=== PATIENT | male | born 1990 | race Two or more races ===

== ENCOUNTER 2016-11-12 20:24 | Emergency (ER) | payer OTHER ==
[2016-11-12 20:34] VITALS: BP 124/79; PULSE 95; TEMP 98.5; BMI 19.9
[2016-11-12] MEDS ORDERED: DIPHTH,PERTUSS(ACELL),TET 0.5 ML DISP.SYRIN IM ONE (22:18)
--- NOTE | 2016-11-12 22:27 | PDOC ---
History of Present Illness - General Chief Complaint: Injury Stated Complaint: LACERATION Time Seen by Provider: 11/12/16 21:21 History Source: Patient Exam Limitations: No Limitations - History of Present Illness Initial Comments: 11/12/16 22:50 Chief complaint: Laceration with of right fifth finger History of present illness: Patient is a 26-year-old male with no significant medical history here today with a laceration to the web of his right fifth finger area after cutting it on frame of his bed. Patient denies any numbness of his finger. Patient has full range of motion of his finger. Patient is not up -to-date with his tetanus. 11/12/16 22:55 Occurred: reports: just prior to arrival Severity: reports: mild Method of Injury: Yes: other (cut on his bed ) Modifying Factors: improves with: None Loss of Consciousness: no loss of consciousness Associated Symptoms (Fall): denies symptoms Past History - Past Medical History Allergies/Adverse Reactions: Allergies Allergy/AdvReac Type Severity Reaction Status Date / Time No Known Allergies Allergy Verified 03/10/14 14:54 Home Medications: Ambulatory Orders Unobtainable [Unobtainable] 11/12/16 Other medical history: depression - Suicide/Smoking/Psychosocial Hx Smoking Status: Yes Smoking History: Current every day smoker Number of Cigarettes Smoked Daily: 20 Information on smoking cessation initiated: No 'Breaking Loose' booklet given: 03/10/14 Hx Alcohol Use: No Review of Systems - Review of Systems Constitutional: No: Symptoms Reported HEENTM: No: Symptoms Reported Respiratory: No: Symptoms reported Cardiac (ROS): No: Symptoms Reported ABD/GI: No: Symptoms Reported : No: Symptoms Reported Musculoskeletal: Yes: Other. No: Symptoms Reported Integumentary: Yes: Other (laceration between rt 4th and 5th finger web) Neurological: No: Symptoms reported *Physical Exam - Vital Signs Last Vital Signs Temp Pulse Resp BP Pulse Ox 98.5 F 95 H 19 124/79 100 11/12/16 20:31 11/12/16 20:31 11/12/16 20:31 11/12/16 20:31 11/12/16 20:31 - Physical Exam General Appearance: Yes: Appropriately Dressed Comments:: 11/12/16 22:53 radial pulse 4 + rt. Extremity: positive: Normal Capillary Refill, Normal Range of Motion (rt. hand all digits) Integumentary: positive: Other (linear laceration web of 5th and 4 th finger linear approx 3 cm x 0.25 cm ) Neurologic: positive: Normal Response (rt. hand ), Respond to painful stimul, Responsive. negative: Numbness, Sensory Deficit Procedures - Consent Consent obtained: From Patient - Laceration/Wound Repair Right Hand 5th digit Wound Length: 2.6 to 5.0 cm Wound Explored: clean Wound's Depth, Shape: superficial, linear Irrigated w/ Saline: Yes Betadine Prep: Yes Anesthesia: 1% Lidocaine Amount of Anesthetic (ccs): 5 Wound Repaired With: Sutures Suture Size/Type: 5:0 Number of Sutures: 5 (interrupted) Sterile Dressing Applied: Yes Medical Decision Making - Medical Decision Making 11/12/16 22:50 Patient is a 26-year-old male with no significant medical history here today with a laceration to the web of his right fifth finger area after cutting it on frame of his bed. Patient denies any numbness of his finger. Patient has full range of motion of his finger. Patient is not up-to-date with his tetanus. Right hand laceration of web on fifth finger Plan: TDAP 0.5 ml IM now 5 interrupted sutures applied to laceration on right fifth finger web follow up in 10 days for suture removal *DC/Admit/Observation/Transfer Diagnosis at time of Disposition: Laceration of right hand Qualifiers: Encounter type: initial encounter Foreign body presence: without foreign body Qualified Code(s): S61.411A - Laceration without foreign body of right hand, initial encounter - Discharge Dispostion Disposition: HOME Condition at time of disposition: Stable - Patient Instructions Additional Instructions: Keep hand dry today Starting tomorrow twice daily with antibacterial soap and water pat dry and apply a tiny amount of bacitracin ointment and a bandage to area May take bandage off at night. Area dry out when sleeping Return here in 10 days for suture removal or sooner if any redness around wound or discharge from wound or any other complications Today your tetanus, diphtheria and pertussis vaccine was updated Patient Voiced understanding of discharge instructions and all questions were answered
== END 2016-11-12 23:00 | disposition home or self-care (01) ==
LOC: JERFT 20:24
PROC: 0HQFXZZ Repair Right Hand Skin, External Approach (ICD-10-PCS; principal; 2016-11-12)
PROC: 3E0234Z Introduction of Serum, Toxoid and Vaccine into Muscle, Percutaneous Approach (ICD-10-PCS; 2016-11-12)
DX: S61.411A Laceration without foreign body of right hand, initial encounter (principal); W26.8XXA Contact with other sharp object(s), not elsewhere classified, initial encounter; Y93.89 Activity, other specified; Y92.032 Bedroom in apartment as the place of occurrence of the external cause
CPT/HCPCS: 90715; 99281-25

== ENCOUNTER 2017-01-21 02:05 | Inpatient (IN) | payer OTHER ==
[2017-01-21] MEDS ORDERED: SODIUM CHLORIDE 0.9% 1000 ML INFUS.BAG IV ONE (03:10)
--- NOTE | 2017-01-21 03:16 | PDOC ---
History of Present Illness - General Stated Complaint: INTOX Time Seen by Provider: 01/21/17 02:55 - History of Present Illness Initial Comments: 01/21/17 03:07 "I took a lot of pills" Patient is a 26 y.o. male who presents to the ED following ingestion of a self- reported 60 pills. Patient presents with empty prescription bottles for Escitaprolam, Bactrim, Buproprion and Hydroxyzine. Patient states "I don't know why" he took a lot of pills and also notes that he did cocaine prior to presentation. Patient denies any current homicidal ideations and is A&O x4. Patient reticent during exam and has flat affect. NKDA Surgical: denies Social: nicotine: 1 ppd; denies alcohol; (+) cocaine PMD: Dr. Vianca Mckeon Past History - Past Medical History Allergies/Adverse Reactions: Allergies Allergy/AdvReac Type Severity Reaction Status Date / Time No Known Allergies Allergy Verified 12/19/16 19:36 Home Medications: Ambulatory Orders Bupropion Xl 300 mg PO DAILY 12/20/16 Escitalopram Oxalate 10 mg PO DAILY 12/20/16 COPD: No - Suicide/Smoking/Psychosocial Hx Smoking Status: Yes Smoking History: Current every day smoker Number of Cigarettes Smoked Daily: 20 'Breaking Loose' booklet given: 03/10/14 Hx Alcohol Use: No Drug/Substance Use Hx: Yes Substance Use Type: Cocaine, Heroin Hx Substance Use Treatment: No Review of Systems - Review of Systems Constitutional: No: Chills, Fever Respiratory: No: Shortness of Breath Cardiac (ROS): No: Chest Pain ABD/GI: No: Constipated, Diarrhea, Nausea, Vomiting All Other Systems: Reviewed and Negative *Physical Exam - Physical Exam General Appearance: Yes: Nourished, Thin HEENT: positive: SYDNEE Neck: positive: Trachea midline, Supple Respiratory/Chest: positive: Lungs Clear. negative: Respiratory Distress, Accessory Muscle Use Cardiovascular: positive: S1, S2 Gastrointestinal/Abdominal: positive: Normal Bowel Sounds, Soft Musculoskeletal: negative: CVA Tenderness (R), CVA Tenderness (L) Extremity: positive: Normal Capillary Refill, Normal Inspection Integumentary: positive: Normal Color, Dry, Warm Neurologic: positive: account coordinator II-XII NML intact, Fully Oriented, Alert, Depressed Affect. negative: Confused, Disoriented ED Treatment Course - LABORATORY CBC & Chemistry Diagram: 01/21/17 03:24 01/21/17 03:24 Medical Decision Making - Medical Decision Making 01/21/17 03:08 Patient is a 26 y.o. male who presents following self-induced overdose of a number of medications including Escitaprolam and Buproprion as well as taking cocaine earlier in the evening.. Clinical suspicion for cardiotoxicity/ respiratory depression. PLAN: 1. CBC, CMP 2. 1 L IV NS 3. UA/Urine Tox 4. 1:1 sitter 01/21/17 05:58 EKG shows NSR HR 91, with no deviations, normal intervals, no ST segment elevations/depressions and normal R wave progression V1-V6. Patient sleeping comfortably in ED. Non-tachycardic, SpO2 99% on RA. Will continue to monitor closely with signout to morning team for psychiatry consult. 01/21/17 07:03 Patient signed out to Dr. Ivy (Attending) and Dr. Ram (Resident). *DC/Admit/Observation/Transfer Diagnosis at time of Disposition: Suicidal deliberate poisoning - Referrals Referrals: Vianca Duron MD [Primary Care Provider] - - Patient Instructions - Post Discharge Activity
[2017-01-21 03:35] LABS: BASO % 0.7 % (0-2.0); EOS % 1.7 % (0-4.5); MCH 28.7 pg (25.7-33.7); MCHC 33.9 g/dl (32.0-35.9); MEAN CELL VOLUME 84.5 fl (80-96); NEUT % 71.5 % (42.8-82.8); PLATELET COUNT 185 K/MM3 (134-434); WHITE BLOOD COUNT 10.5 K/mm3 (4.0-10.0)
[2017-01-21 03:58] LABS: ALCOHOL < 5.0 mg/dl (0-5)
[2017-01-21 04:01] LABS: ANION GAP 14 (8-16); BILIRUBIN,TOTAL 0.5 mg/dL (0.2-1.0); CALCIUM 9.6 mg/dL (8.5-10.1); CO2 21 mmol/L (21-32); CREATININE 1.3 mg/dL (0.7-1.3); GLUCOSE,RANDOM 103 mg/dL (74-106); SGOT/AST 11 U/L (15-37); SGPT/ALT 19 U/L (12-78); TOT PROT 8.2 g/dl (6.4-8.2)
[2017-01-21 04:02] LABS: ALK PHOS 100 U/L (45-117)
[2017-01-21 04:03] LABS: SALICYLATE < 4.0 mg/dl (0.0-30.0)
--- NOTE | 2017-01-21 04:03 | PDOC ---
Attending Attestation - HPI HPI: 01/21/17 04:08 26 year old male with no significant past medical history, who presents to the emergency room s/p suicide attempt after ingesting over 60 pills this evening prior to arrival to the ED. He reports taking Bactrim, escitalopram, bupropion, and hydroxyzine. <Shea Barber - Last Filed: 01/21/17 04:08> - Resident Resident Name: TruptiLita - ED Attending Attestation I have performed the following: I have examined & evaluated the patient, The case was reviewed & discussed with the resident, I agree w/resident's findings & plan, Exceptions are as noted - Physicial Exam PE: 01/21/17 19:49 *Physical Exam General Appearance: Yes: Appropriately Dressed. No: Apparent Distress, Intoxicated HEENT: positive: EOMI, SYDNEE, Normal ENT Inspection, Normal Voice, TMs Normal, Pharynx Normal. negative: Pale Conjunctivae, Photophobia, Scleral Icterus (R), Scleral Icterus (L) Neck: positive: Trachea midline, Normal Thyroid, Supple. negative: Tender, Rigid, Carotid bruit, Stridor, Lymphadenopathy (R), Lymphadenopathy (L), Thyromegaly Respiratory/Chest: positive: Lungs Clear, Normal Breath Sounds. negative: Chest Tender, Respiratory Distress, Accessory Muscle Use, Labored Respiration, RES, Crackles, Rales, Rhonchi, Stridor, Wheezing, Dullness Cardiovascular: positive: Regular Rhythm, Regular Rate, S1, S2. negative: Edema , JVD, Murmur, Bradycardia, Tachycardia Vascular Pulses: Dorsalis-Pedis (R): 2+, Doralis-Pedis (L): 2+ Gastrointestinal/Abdominal: positive: Normal Bowel Sounds, Flat, Soft. negative : Tender, Organomegaly, Pulsatile Mass, Increased Bowel Sounds, Decreased BS, Distended, Guarding, Rebound, Hernia, Hepatomegaly, Spleenomegaly Lymphatic: negative: Adenopathy, Tenderness Musculoskeletal: positive: Normal Inspection. negative: CVA Tenderness, Decreased Range of Motion Extremity: positive: Normal Capillary Refill, Normal Inspection, Normal Range of Motion, Pelvis Stable. negative: Tender, Pedal Edema, Swelling, Erythema Integumentary: positive: Normal Color, Dry, Warm. negative: Cyanotic, Erythema , Jaundice, Rash Neurologic: positive: yoke presser II-XII NML intact, Fully Oriented, Alert, Normal Mood/ Affect, Motor Strength 5/5. negative: EOM Palsy, Facial Droop, Sensory Deficit - Medical Decision Making 01/21/17 19:51 Pt admitted to ICU. <Lenin Merida - Last Filed: 01/21/17 19:51>
[2017-01-21 05:06] VITALS: BMI 23.0
--- NOTE | 2017-01-21 07:32 | PDOC ---
*Physical Exam - Vital Signs Last Vital Signs Temp Pulse Resp BP Pulse Ox 98.6 F 103 H 18 126/83 97 01/21/17 02:05 01/21/17 07:09 01/21/17 07:09 01/21/17 07:09 01/21/17 07:09 ED Treatment Course - LABORATORY CBC & Chemistry Diagram: 01/21/17 03:24 01/21/17 08:00 - ADDITIONAL ORDERS Additional order review: Laboratory Results 01/21/17 01/21/17 03:24 03:24 Sodium 137 Potassium 3.5 Chloride 102 Carbon Dioxide 21 Anion Gap 14 BUN 18 D Creatinine 1.3 D Creat Clearance w eGFR > 60 Random Glucose 103 D Calcium 9.6 Total Bilirubin 0.5 AST 11 L D ALT 19 Alkaline Phosphatase 100 Total Protein 8.2 D Albumin 5.0 D Salicylates < 4.0 Acetaminophen < 11 Alcohol, Quantitative < 5.0 01/21/17 03:24 RBC 6.20 H MCV 84.5 MCHC 33.9 RDW 13.0 MPV 10.0 Neutrophils % 71.5 Lymphocytes % 17.6 Monocytes % 8.5 Eosinophils % 1.7 Basophils % 0.7 - Medications Given in the ED: ED Medications Discontinued Medications Generic Name Dose Route Start Last Admin Trade Name Freq PRN Reason Stop Dose Admin Sodium Chloride 1,000 ml 01/21/17 03:10 01/21/17 03:34 Normal Saline - IV 01/21/17 03:11 1,000 ml ONCE ONE Administration Medical Decision Making - Medical Decision Making 01/21/17 07:[address] Lyles - patient reports using cocaine and taking "60 " pills, with bottles for Escitaloprolam, Bactrim, Buproprion and Hydroxyzine 01/21/17 07:53 Patient had short self limited seizure at approximately 7:45am. No intervention necessary before it quickly seized. QRS elongation and Rprime noted in aVR noted on repeat EKG. Consulted poison control who recommended serial EKGs, fluids, repeat electrolytes, and Mg levels. Also admit for 24 hour obs on tele. Will comply with recommendations. 01/21/17 08:08 Patient catheterized as unable to urinate. Straight cath yielded 1000mL urine. Sodium Bicarb administered for QRS prolongation 01/21/17 08:[address] James. Will admit patient to tele. Dr. James would also like cardiology and neurology consulted as well as psych. Will comply. 01/21/17 09:35 01/21/17 09:56 Toxicology called to check on patient - agreed with Sodium Bicarb admin already given in ED. Recommended continued repeat EKG's, described case reports of instances with Escitalopram overdose deaths at 32 hours. If EKG normalized at 24 hours toxicology is ok with d/c. Will be calling again tomorrow for re- evaluation. *DC/Admit/Observation/Transfer Diagnosis at time of Disposition: Seizure Suicidal deliberate poisoning Qualifiers: Encounter type: initial encounter Qualified Code(s): T65.92XA - Toxic effect of unspecified substance, intentional self-harm, initial encounter Overdose Qualifiers: Encounter type: initial encounter Injury intent: undetermined intent Qualified Code(s): T50.904A - Poisoning by unspecified drugs, medicaments and biological substances, undetermined, initial encounter - Discharge Dispostion Admit: Yes - Referrals - Patient Instructions - Post Discharge Activity
[2017-01-21] MEDS ORDERED: SODIUM BICARBONATE 8.4% - 50 ML ONE (07:40)
[2017-01-21] MEDS ORDERED: SODIUM CHLORIDE 1,000 ML IV STA ×2 (07:42→18:08)
[2017-01-21] MEDS ORDERED: SODIUM BICARBONATE IV SCH ×2 (07:45→08:30)
[2017-01-21] MEDS ORDERED: WATER IV SCH ×2 (07:45→08:30)
[2017-01-21] MEDS ORDERED: DEXTROSE IV SCH ×2 (07:45→08:30)
[2017-01-21] MEDS ORDERED: MAGNESIUM SULF 50% (8.12 MEQ/2 ML-1 GM VIAL) IVPB ONE ×2 (08:00→16:15)
[2017-01-21] MEDS ORDERED: MAGNESIUM SULF 50% (8.12 MEQ/2 ML-1 GM VIAL) ONE ×3 (08:04→19:49)
--- NOTE | 2017-01-21 08:07 | PDOC ---
*Physical Exam - Vital Signs Last Vital Signs Temp Pulse Resp BP Pulse Ox 98.6 F 103 H 18 126/83 97 01/21/17 02:05 01/21/17 07:09 01/21/17 07:09 01/21/17 07:09 01/21/17 07:09 <Sirena Schofield - Last Filed: 01/21/17 09:09> - Vital Signs Last Vital Signs Temp Pulse Resp BP Pulse Ox 98.6 F 103 H 18 126/83 97 01/21/17 02:05 01/21/17 07:09 01/21/17 07:09 01/21/17 07:09 01/21/17 07:09 <CataBrad - Last Filed: 01/21/17 09:15> ED Treatment Course - LABORATORY CBC & Chemistry Diagram: 01/21/17 03:24 01/21/17 03:24 - ADDITIONAL ORDERS Additional order review: Laboratory Results 01/21/17 01/21/17 03:24 03:24 Sodium 137 Potassium 3.5 Chloride 102 Carbon Dioxide 21 Anion Gap 14 BUN 18 D Creatinine 1.3 D Creat Clearance w eGFR > 60 Random Glucose 103 D Calcium 9.6 Total Bilirubin 0.5 AST 11 L D ALT 19 Alkaline Phosphatase 100 Total Protein 8.2 D Albumin 5.0 D Salicylates < 4.0 Acetaminophen < 11 Alcohol, Quantitative < 5.0 01/21/17 03:24 RBC 6.20 H MCV 84.5 MCHC 33.9 RDW 13.0 MPV 10.0 Neutrophils % 71.5 Lymphocytes % 17.6 Monocytes % 8.5 Eosinophils % 1.7 Basophils % 0.7 - Medications Given in the ED: ED Medications Discontinued Medications Generic Name Dose Route Start Last Admin Trade Name Matiasq PRN Reason Stop Dose Admin Magnesium Sulfate 2 gm 01/21/17 08:00 01/21/17 08:05 Magnesium Sulfate IVPB 01/21/17 08:01 2 gm ONCE ONE Administration Sodium Chloride 1,000 ml 01/21/17 03:10 01/21/17 03:34 Normal Saline - IV 01/21/17 03:11 1,000 ml ONCE ONE Administration <Sirena Schofield - Last Filed: 01/21/17 09:09> - LABORATORY CBC & Chemistry Diagram: 01/21/17 03:24 01/21/17 03:24 - ADDITIONAL ORDERS Additional order review: Laboratory Results 01/21/17 01/21/17 03:24 03:24 Sodium 137 Potassium 3.5 Chloride 102 Carbon Dioxide 21 Anion Gap 14 BUN 18 D Creatinine 1.3 D Creat Clearance w eGFR > 60 Random Glucose 103 D Calcium 9.6 Total Bilirubin 0.5 AST 11 L D ALT 19 Alkaline Phosphatase 100 Total Protein 8.2 D Albumin 5.0 D Salicylates < 4.0 Acetaminophen < 11 Alcohol, Quantitative < 5.0 01/21/17 03:24 RBC 6.20 H MCV 84.5 MCHC 33.9 RDW 13.0 MPV 10.0 Neutrophils % 71.5 Lymphocytes % 17.6 Monocytes % 8.5 Eosinophils % 1.7 Basophils % 0.7 - Medications Given in the ED: ED Medications Discontinued Medications Generic Name Dose Route Start Last Admin Trade Name Freq PRN Reason Stop Dose Admin Sodium Chloride 1,000 ml 01/21/17 03:10 01/21/17 03:34 Normal Saline - IV 01/21/17 03:11 1,000 ml ONCE ONE Administration <Brad Ivy - Last Filed: 01/21/17 09:15> Medical Decision Making - Medical Decision Making 01/21/17 08:29 Dr. James paged. Awaiting call back. 01/21/17 08:32 Dr. James called. Awaiting call back. 01/21/17 08:38 Dr. James responded to the call and the patients case was discussed. Will admit to tele. 01/21/17 09:09 Chivo paged via phone answering service. Awaiting call back. Documentation prepared by Sirena Schofield, acting as adjunct faculty for medical terminology for Brad Ivy MD <Sirena Schofield - Last Filed: 01/21/17 09:09> - Medical Decision Making 01/21/17 07:[address] blake at 7am. Pt is 26 M who presents with overdose of 60 pills of Escitaprolam, Bactrim, Buproprion and Hydroxyzine. Unclear time of ingestion. Labs thus far unremarkable. Pt awake and alert at time of sign out. At approx 7:45, pt began to seize. Witnessed by myself having GTC. Episode lasted approx 1 minute total. No meds administered at this time. Repeat EKG obtained, revealing QRS of 124 with terminal R wave in aVR. QTc 673. Questionable TCA toxicity. 1 amp sodium bicarb administered for QRS prolongation and started on sodium bicarb infusion. Mag sulfate administered for QTc prolongation. Pt reassessed s/p seizure, post-ictal but alert and responsive. HD stable. Placed on NC. Poison control contacted. Will repeat labs, including CMP, Mg, tylenol, salicylates. Head CT ordered for seizure with unclear h/o traumatic injury. Will admit to tele. <Brad Ivy - Last Filed: 01/21/17 09:15> *DC/Admit/Observation/Transfer <Sirena Schofield - Last Filed: 01/21/17 09:09> - Attestations Physician Attestion: 01/21/17 08:08 I, Dr. Brad Ivy MD, attest that this document has been prepared under my direction and personally reviewed by me in its entirety. I further attest, that it accurately reflects all work, treatment, procedures and medical decision -making performed by me. <Brad Ivy - Last Filed: 01/21/17 09:15> Diagnosis at time of Disposition: Seizure Suicidal deliberate poisoning Qualifiers: Encounter type: initial encounter Qualified Code(s): T65.92XA - Toxic effect of unspecified substance, intentional self-harm, initial encounter Overdose Qualifiers: Encounter type: initial encounter Injury intent: undetermined intent Qualified Code(s): T50.904A - Poisoning by unspecified drugs, medicaments and biological substances, undetermined, initial encounter
[2017-01-21] MEDS ORDERED: SODIUM BICARBONATE 8.4% 50 MEQ/50 ML DISP.SYRIN IVPUSH ONE (08:12)
[2017-01-21 08:40] LABS: ALBUMIN 4.4 g/dl (3.4-5.0); ANION GAP 24 (8-16); CALCIUM 8.3 mg/dL (8.5-10.1); CO2 13 mmol/L (21-32); GLUCOSE,RANDOM 106 mg/dL (74-106); MAGNESIUM 2.5 mg/dL (1.8-2.4)
[2017-01-21 08:44] LABS: ALK PHOS 92 U/L (45-117); BILIRUBIN,TOTAL 0.3 mg/dL (0.2-1.0); CREATININE 1.6 mg/dL (0.7-1.3); SGOT/AST 9 U/L (15-37); SGPT/ALT 20 U/L (12-78); TOT PROT 7.5 g/dl (6.4-8.2)
[2017-01-21 08:49] LABS: URINE APPEARANCE SLCLOUDY; URINE BILIRUBIN NEGATIVE (NEGATIVE); URINE BLOOD NEGATIVE (NEGATIVE); URINE COLOR YELLOW; URINE GLUCOSE (UA) NEGATIVE (NEGATIVE); URINE KETONE NEGATIVE (NEGATIVE); URINE LEUK ESTERASE NEGATIVE (NEGATIVE); URINE NITRITE NEGATIVE (NEGATIVE); URINE UROBILINOGEN NEGATIVE mg/dL (0.2-1.0)
[2017-01-21 08:53] LABS: URINE PROTEIN 1+ (NEGATIVE)
[2017-01-21] MEDS: DEXTROSE 5%-WATER - 1,000 ML with SODIUM BICARBONATE 8.4% - 150 MEQ IV SCH (08:55)
[2017-01-21 09:05] LABS: URINE HYALINE CAST 27 /lpf; URINE MUCUS RARE; URINE RBC 2 /hpf (0-3); URINE WBC 5 /hpf (3-5)
[2017-01-21 09:14] LABS: SALICYLATE < 4.0 mg/dl (0.0-30.0)
[2017-01-21 09:18] LABS: URINE MARIJUANA THC NEGATIVE ng/ml (CUTOFF=50)
[2017-01-21] MEDS ORDERED: PT OWN MED DRAWER 7, Y5N ONE (10:04)
--- NOTE | 2017-01-21 11:33 | EKG ---
Test Reason : Blood Pressure : / mmHG Vent. Rate : 104 BPM Atrial Rate : 104 BPM P-R Int : 146 ms QRS Dur : 124 ms QT Int : 512 ms P-R-T Axes : 063 044 067 degrees QTc Int : 673 ms SINUS TACHYCARDIA POSSIBLE LEFT ATRIAL ENLARGEMENT RIGHT BUNDLE BRANCH BLOCK ABNORMAL ECG WHEN COMPARED WITH ECG OF 21-JAN-2017 03:28, RIGHT BUNDLE BRANCH BLOCK IS NOW PRESENT Confirmed by JEFF HERNANDEZ, GERARDO ([id number]) on 01/21/2017 11:32:48 AM Referred By: Confirmed By:GERARDO AGUILAR MD
--- NOTE | 2017-01-21 11:34 | EKG ---
Test Reason : Blood Pressure : / mmHG Vent. Rate : 091 BPM Atrial Rate : 091 BPM P-R Int : 140 ms QRS Dur : 102 ms QT Int : 390 ms P-R-T Axes : 069 059 062 degrees QTc Int : 479 ms NORMAL SINUS RHYTHM POSSIBLE LEFT ATRIAL ENLARGEMENT LEFT VENTRICULAR HYPERTROPHY T WAVE ABNORMALITY, CONSIDER ANTERIOR ISCHEMIA PROLONGED QT ABNORMAL ECG WHEN COMPARED WITH ECG OF 20-DEC-2016 03:04, T WAVE INVERSION NOW EVIDENT IN ANTERIOR LEADS QT HAS LENGTHENED Confirmed by GERARDO AGUILAR MD ([id number]) on 01/21/2017 11:33:33 AM Referred By: Confirmed By:GERARDO AGUILAR MD
[2017-01-21] MEDS ORDERED: LORazepam 2 MG/ML SDV VIAL ONE ×5 (15:27→22:32)
[2017-01-21 15:53] LABS: ARTERIAL BLD GAS O2 SATURATION 94.3 % (90-98.9); ARTERIAL BLOOD GAS BASE EXCESS -15.7 meq/l (-2-2); ARTERIAL BLOOD GAS HCO3 12.1 meq/L (22-26); ARTERIAL BLOOD GAS PO2 95.6 mmHg (80-100)
[2017-01-21 16:00] LABS: ALLENS TEST POSITIVE
[2017-01-21 16:01] LABS: PT. ON O2? YES
[2017-01-21 16:02] LABS: ARTERIAL BLOOD GAS pH 7.18 (7.35-7.45)
[2017-01-21] MEDS ORDERED: PROPOFOL 200 MG/20 ML VIAL IVPUSH ONE (16:08)
[2017-01-21] MEDS ORDERED: fentaNYL CITRATE/PF 1,000 MCG/20 ML AMPUL IVPUSH ONE (16:09)
--- NOTE | 2017-01-21 16:10 | CON.CARD ---
Cardiology Consult (text) - Consultation Consultation Note: CC: overdose/qtc prolongation 26 y.o. smoker with h/o polysubstance abuse presented to ER after overdose of multiple medications including Escitaprolam, Bactrim, Buproprion and Hydroxyzine , ER course complicated by brief surgery and progressive prolongation of qtc. Patient treated with bicarb, mg and fluids. History obtained from chart/nursing/md. Patient is intubated and sedated and cannot provide history. This afternoon patient became increasingly altered, agitated, tachycardic and then unresponsive and was transferred to ICU/intubated. Acidosis on ABG. Patient was intubated for airway protection. ? possible aspiration, per report. No ventricular ectopy on tele. pmhx/pshx: per hpi Social hx: nicotine: 1 ppd; denies alcohol; (+) cocaine, utox positive for mdma fam hx: no cardiac disease. ros: per phi, as above. unable to obtain further. per chart, prior to presentation review of ros was negative overall. Ambulatory Orders Bupropion Xl 300 mg PO DAILY 12/20/16 Escitalopram Oxalate 10 mg PO DAILY 12/20/16 Current Medications Sodium Bicarbonate 150 meq/ (Dextrose) 1,150 mls @ 250 mls/hr IV Q8H MARIA DOLORES Last Admin: 01/21/17 08:55 Dose: 250 mls/hr Levetiracetam (Keppra Injection -) 1,500 mg IVPB ONCE ONE Stop: 01/21/17 15:55 Lorazepam (Ativan Injection -) 1 mg IVPUSH Q4H PRN PRN Reason: AGITATION Lorazepam (Ativan Injection -) 2 mg IVPUSH ONCE ONE Stop: 01/21/17 15:51 Magnesium Sulfate (Magnesium Sulfate) 2 gm IVPB ONCE ONE Stop: 01/21/17 15:52 Propofol (Diprivan -) 5,000 mcg IVPUSH ONCE ONE Stop: 01/21/17 16:09 Vital Signs - 24 hr 01/21/17 01/21/17 01/21/17 02:05 06:03 07:09 Temperature 98.6 F Pulse Rate 105 H Pulse Rate [ 98 H 103 H Apical] Respiratory 16 17 18 Rate Blood Pressure 119/67 Blood Pressure 108/71 126/83 [Right Arm] O2 Sat by Pulse 98 100 97 Oximetry (%) 01/21/17 01/21/17 01/21/17 07:30 07:35 08:25 Temperature Pulse Rate Pulse Rate [ 106 H 110 H Apical] Respiratory 16 16 Rate Blood Pressure Blood Pressure 95/70 128/78 [Right Arm] O2 Sat by Pulse 99 98 99 Oximetry (%) 01/21/17 01/21/17 01/21/17 09:07 10:08 10:30 Temperature 97.7 F Pulse Rate 123 H Pulse Rate [ 102 H Apical] Respiratory 16 20 20 Rate Blood Pressure 104/62 Blood Pressure 137/80 [Right Arm] O2 Sat by Pulse 98 98 Oximetry (%) 01/21/17 15:58 Temperature 98.9 F Pulse Rate 103 H Pulse Rate [ Apical] Respiratory 18 Rate Blood Pressure 112/68 Blood Pressure [Right Arm] O2 Sat by Pulse Oximetry (%) Intake & Output 01/19/17 01/20/17 01/21/17 01/22/17 07:59 07:59 07:59 07:59 Output Total 1000 Balance -1000 Weight 170 lb nad, calm, intubated, sedated jvd flat, neck supple ctab, mechanical ventilation tachycardic nl s1, s2 no mrg + bs soft nt nd ext without e/c/c no jaundice, diaphoresis no carotid bruits. CBC, BMP 01/21/17 03:24 01/21/17 08:00 Laboratory Tests 01/21/17 01/21/17 01/21/17 03:24 08:00 08:00 Creatinine 1.3 D Magnesium 2.5 H D Total Bilirubin 0.3 D AST 9 L ALT 20 Alkaline Phosphatase 92 Albumin 4.4 MDMA (Ecstasy) Screen Positive Cocaine Screen Positive EKG 1: nsr. lvh. incomplete rbbb. bline prolonged qtc. diffuse st-t wave ab. anterior /anterolateral twi/biphasic t waves. EKG 2: sinus tach, rbbb. prolonged qtc. non-specific st-t wave ab. t waves no longer inverted/biphasic. tele: sinus tach 26 y.o. smoker with h/o polysubstance abuse preseted to ER after overdose of multiple medications including Escitaprolam, Bactrim, Buproprion and Hydroxyzine , ER course complicated by brief surgery and progressive prolongation of qtc. prolonged qt in setting of overdose. - repeat ekg now and tomorrow am - con't tele monitoring. If has ventricular ectopy overnight can give magnesium 2g iv over 2 minutes or can consider magnesium drip. - ongoing mgm't of overdose/toxicity/acidosis per pmd/critical care team. - avoid qtc prolonging drugs. ST-T wave changes, qrs widening - likely in response to metabolic derangements - if does not normalize with correction of metabolic abnormalities can consider echo.
[2017-01-21] MEDS ORDERED: levETIRAcetam 500 MG/5 ML INJECTION VIAL IVPB ONE ×2 (16:15→19:48)
[2017-01-21] MEDS ORDERED: LORazepam 2 MG/ML SDV VIAL IVPUSH ONE ×3 (16:15→22:45)
--- NOTE | 2017-01-21 16:17 | CON.NEURO ---
Consult - History of Present Illness History of Present Illness: 26 year old male presented with drug over dose ( he took escitaprolam, bactrim, buproprion and hydroxyzine) . He was positive for cocaine and ectasy. Patient had multiple seizure since he came . He is going to icu. Initially ct head was normal. He has been given ativan and at this time he is unresponsive to verbal stimuli - Alcohol/Substance Use Hx Alcohol Use: No History of Substance Use: reports: Cocaine, Prescription (opioids) - Smoking History Smoking history: Current every day smoker Have you smoked in the past 12 months: Yes Aproximately how many cigarettes per day: 20 - Social History ADL: Independent Home Medications - Allergies Allergies/Adverse Reactions: Allergies Allergy/AdvReac Type Severity Reaction Status Date / Time No Known Allergies Allergy Verified 12/19/16 19:36 - Home Medications Home Medications: Ambulatory Orders Bupropion Xl 300 mg PO DAILY 12/20/16 Escitalopram Oxalate 10 mg PO DAILY 12/20/16 Physical Exam-Neuro Vital Signs: Vital Signs Temperature 98.9 F 01/21/17 15:58 Pulse Rate 103 H 01/21/17 15:58 Respiratory Rate 18 01/21/17 15:58 Blood Pressure 112/68 01/21/17 15:58 O2 Sat by Pulse Oximetry (%) 98 01/21/17 10:30 Labs: CBC, BMP 01/21/17 03:24 01/21/17 08:00 Imaging - Results Cat Scan: Report Reviewed Assessment/Plan CC four episode of Seizures HPI 26 year old male presented with drug over dose ( he took escitaprolam, bactrim, buproprion and hydroxyzine) . He was positive for cocaine and ectasy. Patient had multiple seizure since he came . He is going to icu. Initially ct head was normal. He has been given ativan and at this time he is unresponsive to verbal stimuli Past Medical History of drug abuse and depression ROS, SH, Medication history reviewed in chart NKDA Home Medications: Bupropion Xl 300 mg PO DAILY 12/20/16 Escitalopram Oxalate 10 mg PO DAILY 12/20/16 Neurological Examination He is sedated and has multiple seizures on floor and hospitalist team at bed side. He was given ativan and now sedated he is being transported to icu and repeat ct head no neck stiffness pupils is reactive, and minimal response to painful stimuli no detail exam is possible ct head is normal Assessment- Status epilepticus secondary to drug induced ( cocaine and Drugs Overdose) Plan-- suggest to load with keprpa 1500 mg iv bid - EEG can be done - if continue to have seizures and than load with Phosphenytoin and consider midazolam drip - overall prognosis is guarded, suspician for meningitis, or stroke is low will continue to follow with primary Thanks for consult Jasen Monte MD
--- NOTE | 2017-01-21 16:22 | HP ---
Admitting History and Physical - Primary Care Physician PCP: Karen James - Admission History of Present Illness: "I took a lot of pills" Patient is a 26 y.o. male who presents to the ED following ingestion of a self- reported 60 pills. Patient presents with empty prescription bottles for Escitaprolam, Bactrim, Buproprion and Hydroxyzine. Patient states "I don't know why" he took a lot of pills and also notes that he did cocaine prior to presentation. N - Past Medical History Psych: Yes: Depression - Smoking History Smoking history: Current every day smoker Have you smoked in the past 12 months: Yes Aproximately how many cigarettes per day: 20 - Alcohol/Substance Use Hx Alcohol Use: No History of Substance Use: reports: Cocaine, Prescription (opioids) - Social History ADL: Independent Home Medications - Allergies Allergies/Adverse Reactions: Allergies Allergy/AdvReac Type Severity Reaction Status Date / Time No Known Allergies Allergy Verified 12/19/16 19:36 - Home Medications Home Medications: Ambulatory Orders Bupropion Xl 300 mg PO DAILY 12/20/16 Escitalopram Oxalate 10 mg PO DAILY 12/20/16 Physical Examination Vital Signs: Vital Signs Temperature 98.9 F 01/21/17 15:58 Pulse Rate 103 H 01/21/17 15:58 Respiratory Rate 18 01/21/17 15:58 Blood Pressure 112/68 01/21/17 15:58 O2 Sat by Pulse Oximetry (%) 98 01/21/17 10:30 Constitutional: Yes: Calm HENT: Yes: Atraumatic Neck: Yes: Supple Cardiovascular: Yes: Regular Rate and Rhythm Respiratory: Yes: Rhonchi Gastrointestinal: Yes: Normal Bowel Sounds Extremities: Yes: WNL Neurological: Yes: Other (intubated and sedated) Labs: CBC, BMP 01/21/17 03:24 01/21/17 08:00 Problem List - Problems (1) Overdose Assessment/Plan: intubated for airway protection on abx Code(s): T50.901A - POISONING BY UNSP DRUG/MEDS/BIOL SUBST, ACCIDENTAL, INIT Qualifiers: Encounter type: initial encounter Injury intent: undetermined intent Qualified Code(s): T50.904A - Poisoning by unspecified drugs, medicaments and biological substances, undetermined, initial encounter (2) Seizure Assessment/Plan: on keppra Code(s): R56.9 - UNSPECIFIED CONVULSIONS (3) Suicidal deliberate poisoning Assessment/Plan: will get psych once stable Code(s): T65.92XA - TOXIC EFFECT OF UNSP SUBSTANCE, INTENTIONAL SELF-HARM, INIT Qualifiers: Encounter type: initial encounter Qualified Code(s): T65.92XA - Toxic effect of unspecified substance, intentional self-harm, initial encounter Assessment/Plan Laboratory Tests 01/21/17 01/21/17 01/21/17 03:24 03:24 03:24 WBC 10.5 H RBC 6.20 H Hgb 17.8 H D Hct 52.4 H MCV 84.5 MCH 28.7 MCHC 33.9 RDW 13.0 Plt Count 185 MPV 10.0 Neutrophils % 71.5 Lymphocytes % 17.6 Monocytes % 8.5 Eosinophils % 1.7 Basophils % 0.7 Puncture Site ABG pH ABG pCO2 at Pt Temp ABG pO2 at Pt Temp ABG HCO3 ABG O2 Sat (Measured) ABG O2 Content ABG Base Excess Jono Test Oxygen Flow Rate Sodium 137 Potassium 3.5 Chloride 102 Carbon Dioxide 21 Anion Gap 14 BUN 18 D Creatinine 1.3 D Creat Clearance w eGFR > 60 Random Glucose 103 D Calcium 9.6 Magnesium Total Bilirubin 0.5 AST 11 L D ALT 19 Alkaline Phosphatase 100 Total Protein 8.2 D Albumin 5.0 D Urine Color Urine Appearance Urine pH Ur Specific [place] Urine Protein Urine Glucose (UA) Urine Ketones Urine Blood Urine Nitrite Urine Bilirubin Urine Urobilinogen Urine WBC (Auto) Urine RBC (Auto) Ur Epithelial Cells Hyaline Casts Urine Mucus Salicylates < 4.0 Opiates Screen Methadone Screen Acetaminophen < 11 Barbiturate Screen Phencyclidine Screen Ur Amphetamines Screen MDMA (Ecstasy) Screen Benzodiazepines Screen Cocaine Screen U Marijuana (THC) Screen Alcohol, Quantitative < 5.0 01/21/17 01/21/17 01/21/17 08:00 08:00 08:00 WBC RBC Hgb Hct MCV MCH MCHC RDW Plt Count MPV Neutrophils % Lymphocytes % Monocytes % Eosinophils % Basophils % Puncture Site ABG pH ABG pCO2 at Pt Temp ABG pO2 at Pt Temp ABG HCO3 ABG O2 Sat (Measured) ABG O2 Content ABG Base Excess Jono Test Oxygen Flow Rate Sodium 141 Potassium 3.6 Chloride 104 Carbon Dioxide 13 L D Anion Gap 24 H BUN 17 Creatinine 1.6 H D Creat Clearance w eGFR 52.93 Random Glucose 106 Calcium 8.3 L Magnesium 2.5 H D Total Bilirubin 0.3 D AST 9 L ALT 20 Alkaline Phosphatase 92 Total Protein 7.5 Albumin 4.4 Urine Color Yellow Urine Appearance Slcloudy Urine pH 6.0 Ur Specific [place] 1.021 Urine Protein 1+ H Urine Glucose (UA) Negative Urine Ketones Negative Urine Blood Negative Urine Nitrite Negative Urine Bilirubin Negative Urine Urobilinogen Negative Urine WBC (Auto) 5 Urine RBC (Auto) 2 Ur Epithelial Cells Rare Hyaline Casts 27 Urine Mucus Rare Salicylates Opiates Screen Negative Methadone Screen Negative Acetaminophen Barbiturate Screen Negative Phencyclidine Screen Negative Ur Amphetamines Screen Negative MDMA (Ecstasy) Screen Positive Benzodiazepines Screen Negative Cocaine Screen Positive U Marijuana (THC) Screen Negative Alcohol, Quantitative 01/21/17 01/21/17 08:00 15:40 WBC RBC Hgb Hct MCV MCH MCHC RDW Plt Count MPV Neutrophils % Lymphocytes % Monocytes % Eosinophils % Basophils % Puncture Site Y ABG pH 7.18 L* ABG pCO2 at Pt Temp 33.8 L ABG pO2 at Pt Temp 95.6 ABG HCO3 12.1 L* ABG O2 Sat (Measured) 94.3 ABG O2 Content 21.6 ABG Base Excess -15.7 L* Jono Test Positive Oxygen Flow Rate Yes Sodium Potassium Chloride Carbon Dioxide Anion Gap BUN Creatinine Creat Clearance w eGFR Random Glucose Calcium Magnesium Total Bilirubin AST ALT Alkaline Phosphatase Total Protein Albumin Urine Color Urine Appearance Urine pH Ur Specific [place] Urine Protein Urine Glucose (UA) Urine Ketones Urine Blood Urine Nitrite Urine Bilirubin Urine Urobilinogen Urine WBC (Auto) Urine RBC (Auto) Ur Epithelial Cells Hyaline Casts Urine Mucus Salicylates < 4.0 Opiates Screen Methadone Screen Acetaminophen < 2.0 L Barbiturate Screen Phencyclidine Screen Ur Amphetamines Screen MDMA (Ecstasy) Screen Benzodiazepines Screen Cocaine Screen U Marijuana (THC) Screen Alcohol, Quantitative Active Medications Generic Name Dose Route Start Last Admin Trade Name Freq PRN Reason Stop Dose Admin Fentanyl Citrate 500 mcg 01/21/17 16:09 Fentanyl 1,000 Mcg/20 Ml Ampul IVPUSH 01/21/17 16:10 ONCE ONE Sodium Bicarbonate 150 meq/ 1,150 mls @ 250 mls/hr 01/21/17 08:30 01/21/17 08 :55 Dextrose IV 250 mls/hr Q8H MARIA DOLORES Administration Lorazepam 1 mg 01/21/17 15:29 Ativan Injection - IVPUSH Q4H PRN AGITATION Propofol 5,000 mcg 01/21/17 16:08 Diprivan - IVPUSH 01/21/17 16:09 ONCE ONE Active Medications Generic Name Dose Route Start Last Admin Trade Name Freq PRN Reason Stop Dose Admin Acetaminophen 1,000 mg 01/21/17 16:43 Ofirmev Injection - IVPB Q6H PRN FEVER OR PAIN Sodium Bicarbonate 150 meq/ 1,150 mls @ 100 mls/hr 01/21/17 16:45 01/21/17 18 :31 Dextrose IVPB 100 mls/hr Q12H MARIA DOLORES Administration Sodium Chloride 1,000 mls @ 100 mls/hr 01/21/17 16:45 Normal Saline - IV ASDIR MARIA DOLORES Piperacillin Sod/Tazobactam 100 mls @ 200 mls/hr 01/21/17 18:00 01/21/17 18: 33 Sod 4.5 gm/ Dextrose IVPB 200 mls/hr Q6H MARIA DOLORES Administration Levetiracetam 1,500 mg 01/21/17 22:00 Keppra Injection - IVPB BID MARIA DOLORES Lorazepam 1 mg 01/21/17 15:29 01/21/17 16:50 Ativan Injection - IVPUSH 1 mg Q4H PRN Administration AGITATION Ondansetron HCl 4 mg 01/21/17 16:29 Zofran Injection IVPB Q4H PRN NAUSEA AND/OR VOMITING called and left msg for pts home father/ lives in the same house
[2017-01-21] MEDS ORDERED: ONDANSETRON 4 MG/2 ML VIAL IVPB PRN (16:29)
--- NOTE | 2017-01-21 16:32 | PROC ---
<Danisha Bryan - Last Filed: 01/21/17 16:31> Intubation - Intubation Reason for Intubation: Airway Protection Intubation Method: orotracheal Blade used: Mac Tube Size (cm): 8.0 Tube position confirmed by: Direct visualization, CO2 detector, Chest x-ray, Breath sounds Breath Sounds after Intubation: equal Post Intubation Xray: Yes <Dmitriy Anthony MD - Last Filed: 01/21/17 16:33> Procedure Note Procedure: I supervised and was present during the entire procedure. Dmitriy Anthony MD
--- NOTE | 2017-01-21 16:32 | RAPID ---
<Sharmila Lacy - Last Filed: 01/21/17 17:40> Physical Examination Findings/Remarks: RR called at around 4PM due to SEIZURES RR team arrived immediately. Patient's chart was reviewed. Mr Farnsworth is a 26yo M with no known PMHx who presented to the ED after self-reportedly ingesting "60 pills". He presented with empty prescription bottles of Escitalopram, Bactrim, Buproprion, and Hydroxyzine. He presented with AAOx2 with a flat affect. EKG showed QTc 674. He was started on a Bicarb drip. Placed on 1:1. Head CT normal. Patient seen and examined. He was actively seizing with multiple attendants holding down his extremities. According to nurse, this was the patient's 4th seizure since coming to the floors. Pt was given 2mg Ativan IVP with resolution of seizure, with no further seizure activity. Patient was not responding to verbal or tactile stimuli at the time, but was intermittently awakening with confusion and moving all his extremities symmetrically. OBJECTIVE: VS: BP 120s/80s; HR 140s; O2 93 on 2L GEN: Not awake, breathing spontaneously, not responsive to verbal to tactile stimuli HEENT: Pupils are dilated but mildly reactive, unable to assess EOm, no neck stiffn ess CV: S1, S2, tachycardic rate, regular rhythm LUNG: Bilateral rhonchi heard ABD: Soft, normoactive BS NEURO: Difficutl to assess. However patient is moving all extremities symmetrically. pupils are reactive. LABS: ABG Results ABG pH 7.18 (7.35-7.45) L* 01/21/17 15:40 ABG pCO2 at Pt Temp 33.8 mmHg (35-45) L 01/21/17 15:40 ABG pO2 at Pt Temp 95.6 mmHg (80-100) 01/21/17 15:40 ABG HCO3 12.1 meq/L (22-26) L* 01/21/17 15:40 ABG O2 Sat (Measured) 94.3 % (90-98.9) 01/21/17 15:40 ABG O2 Content 21.6 % vol (15-22) 01/21/17 15:40 ABG Base Excess -15.7 meq/l (-2-2) L* 01/21/17 15:40 Laboratory Tests 01/21/17 01/21/17 01/21/17 03:24 08:00 08:00 Salicylates < 4.0 Opiates Screen Negative Methadone Screen Negative Acetaminophen < 2.0 L Barbiturate Screen Negative Phencyclidine Screen Negative Ur Amphetamines Screen Negative MDMA (Ecstasy) Screen Positive Benzodiazepines Screen Negative Cocaine Screen Positive U Marijuana (THC) Screen Negative Alcohol, Quantitative < 5.0 Assessment: 26yo M with no prior seizure history, who arrived s/p overdosing on multiple drugs, which likely lowered the patient's seizure threshold leading to these 4 seizures. Utox +Cocaine and MDMA. ABG revealed metabolic acidosis, likely due to a combination of the multiple drug overdoses and likely lactic acidosis from the multiple seizures. Plan: - Ativan 2mg x1 given, give PRN - Neurology Dr. Monte attended and started Keppra load 1,500mg IV - Due to metabolic acidosis and mental status, patient will be transferred to the ICU. He will be intubated for respiratory rate control while on antiepileptics and sedatives. ICU contacted. Dr. Anthony accepted - STAT EKG ordered, follow QTc - CT head ordered to ensure no new intracranial process especially with dilated pupils, r/o herniation, low suspicion for stroke - CMP, Mg, Phos, TSH ordered - Bicarb drip ordered, will continue for now Attempted to contact Dr James. D/w Dr Brunson and ICU team Critical Care Time 1hr Sharmila Lacy MD - PGy1 Internal Medicine <Bryn Brunson - Last Filed: 01/21/17 17:59> Physical Examination Vital Signs: Vital Signs Temperature 98.9 F 01/21/17 15:58 Pulse Rate 112 H 01/21/17 16:41 Respiratory Rate 18 01/21/17 16:41 Blood Pressure 112/68 01/21/17 15:58 O2 Sat by Pulse Oximetry (%) 100 01/21/17 16:41 Labs: CBC, BMP 01/21/17 03:24 Rapid Response - Rapid Response Assessment: I was present through the whole critical care time spent with the patient. I agree with the assessment, findings and management of the patient. Patient was taken down to ICU, care transferred to Dr. Anthony. Patient was intubated, sedated and placed on bicarbonate drip. Follow up including EKG, CT brain, chem-7 passed on to the ICU team. Further plan deferred to Dr. Anthony and Dr. James.
--- NOTE | 2017-01-21 16:33 | PN ---
Teaching Attending Note Name of Resident: Danisha Bryan ATTENDING PHYSICIAN STATEMENT I saw and evaluated the patient. I reviewed the resident's note and discussed the case with the resident. I agree with the resident's findings and plan as documented. SUBJECTIVE: Pt seen and examined in the ICU. Briefly, 26yo male with h/o substance abuse who was admitted after ingesting multiple doses of escitalopram, bactrim, buproprion, hydroxyzine. Urine toxicology positive for cocaine and ecstasy. ABG showing metabolic acidosis and EKG with prolonged QTc. Admitted to telemetry initially, rapid response called for ongoing seizures. Transferred to the ICU, intubated with vomitus in endotracheal tube. OBJECTIVE: Last Vital Signs Temp Pulse Resp BP Pulse Ox 98.9 F 103 H 18 112/68 98 01/21/17 15:58 01/21/17 15:58 01/21/17 15:58 01/21/17 15:58 01/21/17 10:30 Intake & Output 01/18/17 01/19/17 01/20/17 01/21/17 23:59 23:59 23:59 23:59 Output Total 1000 Balance -1000 Weight 170 lb Gen: agitated, diaphoretic Heart: tachycardic, regular Lung: scattered rhonchi Abd: soft, nontender Ext: no edema CBC, BMP 01/21/17 03:24 01/21/17 08:00 ABG Results ABG pH 7.18 (7.35-7.45) L* 01/21/17 15:40 ABG pCO2 at Pt Temp 33.8 mmHg (35-45) L 01/21/17 15:40 ABG pO2 at Pt Temp 95.6 mmHg (80-100) 01/21/17 15:40 ABG HCO3 12.1 meq/L (22-26) L* 01/21/17 15:40 ABG O2 Sat (Measured) 94.3 % (90-98.9) 01/21/17 15:40 ABG O2 Content 21.6 % vol (15-22) 01/21/17 15:40 ABG Base Excess -15.7 meq/l (-2-2) L* 01/21/17 15:40 Active Medications Fentanyl Citrate (Fentanyl 1,000 Mcg/20 Ml Ampul) 500 mcg IVPUSH ONCE ONE Stop: 01/21/17 16:10 Sodium Bicarbonate 150 meq/ (Dextrose) 1,150 mls @ 250 mls/hr IV Q8H MARIA DOLORES Last Admin: 01/21/17 08:55 Dose: 250 mls/hr Lorazepam (Ativan Injection -) 1 mg IVPUSH Q4H PRN PRN Reason: AGITATION Ondansetron HCl (Zofran Injection) 4 mg IVPB Q4H PRN PRN Reason: NAUSEA AND/OR VOMITING Propofol (Diprivan -) 5,000 mcg IVPUSH ONCE ONE Stop: 01/21/17 16:09 ASSESSMENT AND PLAN: Drug Overdose Suspect Serotonin Syndrome Polysubstance Abuse Metabolic Acidosis Acute Kidney Injury - keppra per neurology - aggressive IVF - bicarb gtt - empiric antibiotics - monitor QTc - monitor ABG - DVT/GI prophylaxis
[2017-01-21] MEDS ORDERED: ACETAMINOPHEN 1000 MG/100 ML VIAL (NON FORMULARY) IVPB PRN (16:43)
[2017-01-21] MEDS ORDERED: PIPERACILLIN/TAZOB 4.5 GM/100 ML PREMIX BAG IVPB SCH (16:45)
--- NOTE | 2017-01-21 16:46 | CONSULT ---
Consultation: REQUESTING PROVIDER: CONSULT REQUEST: We have been asked to medically evaluate this patient for seizure, aspiration. HISTORY OF PRESENT ILLNESS: This is a 26 yo M with PMH of drug abuse, who presented with drug OD on escitaprolam, bactrim, buproprion and hydroxyzine. Tox positive for cocaine and ecstasy. Patient was initially combative on floor, then had multiple episodes of SZ, broken by ativan 1 mg, RR was called. Brought o ICU lethargic, confused, hemodynamically stable. Was intubated for airway protection, at the time was found to have vomit in the trachea. had another episode of grand mal SZ, was given 2 of ativan and started on keppra. Had an episode of hypitension systolic 70 after 15 mg of propofol given for intubation, corrected with a bolus of IVF. has been afebrile. Initial ct head wnl. EKG significant for prolonged QTc 504. REVIEW OF SYSTEMS: unable to obtain PHYSICAL EXAMINATION Vital Signs - 24 hr 01/21/17 01/21/17 01/21/17 02:05 06:03 07:09 Temperature 98.6 F Pulse Rate 105 H Pulse Rate [ 98 H 103 H Apical] Respiratory 16 17 18 Rate Blood Pressure 119/67 Blood Pressure 108/71 126/83 [Right Arm] O2 Sat by Pulse 98 100 97 Oximetry (%) 01/21/17 01/21/17 01/21/17 07:30 07:35 08:25 Temperature Pulse Rate Pulse Rate [ 106 H 110 H Apical] Respiratory 16 16 Rate Blood Pressure Blood Pressure 95/70 128/78 [Right Arm] O2 Sat by Pulse 99 98 99 Oximetry (%) 01/21/17 01/21/17 01/21/17 09:07 10:08 10:30 Temperature 97.7 F Pulse Rate 123 H Pulse Rate [ 102 H Apical] Respiratory 16 20 20 Rate Blood Pressure 104/62 Blood Pressure 137/80 [Right Arm] O2 Sat by Pulse 98 98 Oximetry (%) 01/21/17 01/21/17 15:58 16:41 Temperature 98.9 F Pulse Rate 103 H 112 H Pulse Rate [ Apical] Respiratory 18 18 Rate Blood Pressure 112/68 Blood Pressure [Right Arm] O2 Sat by Pulse 100 Oximetry (%) GENERAL: unresponsive to verbal stimuli HEAD: Normal with no signs of trauma. EYES: dilated, equal, reactive to light, sclera anicteric EARS, NOSE, THROAT: Moist mucous membranes. NECK: supple LUNGS: Breath sounds equal, clear to auscultation bilaterally. HEART: Regular rate and rhythm, normal S1 and S2 ABDOMEN: Soft, nontender, not distended, normoactive bowel sounds, no mass MUSCULOSKELETAL: No bony deformities UPPER EXTREMITIES: 2+ pulses, warm, well-perfused. No peripheral edema. LOWER EXTREMITIES: 2+ pulses, warm, well-perfused. No peripheral edema. NEUROLOGICAL: unresoponside to command, was awake but lethargic until sedated PSYCHIATRIC: lethargic SKIN: Warm, dry Laboratory Results - last 24 hr 01/21/17 01/21/17 01/21/17 03:24 03:24 03:24 WBC 10.5 H RBC 6.20 H Hgb 17.8 H D Hct 52.4 H MCV 84.5 MCH 28.7 MCHC 33.9 RDW 13.0 Plt Count 185 MPV 10.0 Neutrophils % 71.5 Lymphocytes % 17.6 Monocytes % 8.5 Eosinophils % 1.7 Basophils % 0.7 Puncture Site ABG pH ABG pCO2 at Pt Temp ABG pO2 at Pt Temp ABG HCO3 ABG O2 Sat (Measured) ABG O2 Content ABG Base Excess Jono Test Oxygen Flow Rate Sodium 137 Potassium 3.5 Chloride 102 Carbon Dioxide 21 Anion Gap 14 BUN 18 D Creatinine 1.3 D Creat Clearance w eGFR > 60 Random Glucose 103 D Calcium 9.6 Magnesium Total Bilirubin 0.5 AST 11 L D ALT 19 Alkaline Phosphatase 100 Total Protein 8.2 D Albumin 5.0 D Urine Color Urine Appearance Urine pH Ur Specific [place] Urine Protein Urine Glucose (UA) Urine Ketones Urine Blood Urine Nitrite Urine Bilirubin Urine Urobilinogen Urine WBC (Auto) Urine RBC (Auto) Ur Epithelial Cells Hyaline Casts Urine Mucus Salicylates < 4.0 Opiates Screen Methadone Screen Acetaminophen < 11 Barbiturate Screen Phencyclidine Screen Ur Amphetamines Screen MDMA (Ecstasy) Screen Benzodiazepines Screen Cocaine Screen U Marijuana (THC) Screen Alcohol, Quantitative < 5.0 01/21/17 01/21/17 01/21/17 08:00 08:00 08:00 WBC RBC Hgb Hct MCV MCH MCHC RDW Plt Count MPV Neutrophils % Lymphocytes % Monocytes % Eosinophils % Basophils % Puncture Site ABG pH ABG pCO2 at Pt Temp ABG pO2 at Pt Temp ABG HCO3 ABG O2 Sat (Measured) ABG O2 Content ABG Base Excess Jono Test Oxygen Flow Rate Sodium 141 Potassium 3.6 Chloride 104 Carbon Dioxide 13 L D Anion Gap 24 H BUN 17 Creatinine 1.6 H D Creat Clearance w eGFR 52.93 Random Glucose 106 Calcium 8.3 L Magnesium 2.5 H D Total Bilirubin 0.3 D AST 9 L ALT 20 Alkaline Phosphatase 92 Total Protein 7.5 Albumin 4.4 Urine Color Yellow Urine Appearance Slcloudy Urine pH 6.0 Ur Specific [place] 1.021 Urine Protein 1+ H Urine Glucose (UA) Negative Urine Ketones Negative Urine Blood Negative Urine Nitrite Negative Urine Bilirubin Negative Urine Urobilinogen Negative Urine WBC (Auto) 5 Urine RBC (Auto) 2 Ur Epithelial Cells Rare Hyaline Casts 27 Urine Mucus Rare Salicylates Opiates Screen Negative Methadone Screen Negative Acetaminophen Barbiturate Screen Negative Phencyclidine Screen Negative Ur Amphetamines Screen Negative MDMA (Ecstasy) Screen Positive Benzodiazepines Screen Negative Cocaine Screen Positive U Marijuana (THC) Screen Negative Alcohol, Quantitative 01/21/17 01/21/17 08:00 15:40 WBC RBC Hgb Hct MCV MCH MCHC RDW Plt Count MPV Neutrophils % Lymphocytes % Monocytes % Eosinophils % Basophils % Puncture Site Y ABG pH 7.18 L* ABG pCO2 at Pt Temp 33.8 L ABG pO2 at Pt Temp 95.6 ABG HCO3 12.1 L* ABG O2 Sat (Measured) 94.3 ABG O2 Content 21.6 ABG Base Excess -15.7 L* Jono Test Positive Oxygen Flow Rate Yes Sodium Potassium Chloride Carbon Dioxide Anion Gap BUN Creatinine Creat Clearance w eGFR Random Glucose Calcium Magnesium Total Bilirubin AST ALT Alkaline Phosphatase Total Protein Albumin Urine Color Urine Appearance Urine pH Ur Specific [place] Urine Protein Urine Glucose (UA) Urine Ketones Urine Blood Urine Nitrite Urine Bilirubin Urine Urobilinogen Urine WBC (Auto) Urine RBC (Auto) Ur Epithelial Cells Hyaline Casts Urine Mucus Salicylates < 4.0 Opiates Screen Methadone Screen Acetaminophen < 2.0 L Barbiturate Screen Phencyclidine Screen Ur Amphetamines Screen MDMA (Ecstasy) Screen Benzodiazepines Screen Cocaine Screen U Marijuana (THC) Screen Alcohol, Quantitative Active Medications Generic Name Dose Route Start Last Admin Trade Name Freq PRN Reason Stop Dose Admin Acetaminophen 1,000 mg 01/21/17 16:43 Ofirmev Injection - IVPB Q6H PRN FEVER OR PAIN Fentanyl Citrate 50 mcg 01/21/17 16:09 Fentanyl 1,000 Mcg/20 Ml Ampul IVPUSH 01/21/17 16:10 ONCE ONE Sodium Bicarbonate 150 meq/ 1,150 mls @ 100 mls/hr 01/21/17 16:45 Dextrose IVPB ASDIR MARIA DOLORES Sodium Chloride 1,000 mls @ 100 mls/hr 01/21/17 16:45 Normal Saline - IV ASDIR MARIA DOLORES Lorazepam 1 mg 01/21/17 15:29 Ativan Injection - IVPUSH Q4H PRN AGITATION Ondansetron HCl 4 mg 01/21/17 16:29 Zofran Injection IVPB Q4H PRN NAUSEA AND/OR VOMITING Piperacillin/Tazobactam/Dextrose 4.5 gm 01/21/17 16:45 Zosyn 4.5gm Ivpb (Premix) IVPB Q6H-IV MARIA DOLORES Propofol 5,000 mcg 01/21/17 16:08 Diprivan - IVPUSH 01/21/17 16:09 ONCE ONE ASSESSMENT/PLAN: This is a 26 yo M with PMH of drug abuse, who presented with drug OD on escitaprolam, bactrim, buproprion and hydroxyzine. Tox positive for cocaine and ecstasy. Neuro *Drug Overdose -scitaprolam, bactrim, buproprion and hydroxyzine, cocaine, MDMA *Possible Serotonin Syndrome -Prolonged Qtc 504; serial ekg's, tele monitoring -no hypothermia, rigidity or LE clonus at this time, watch closely *New Grand Mal SZ -secondary to OD/serotonin syndrome; CT head unremarkable -ativan 1 mg IV PRN -Keppra 1000 IV BID renal dosing; f/u levels -sedation with propofol -EEG to follow -neuro on case *Polysubstance Abuse -rhab specialist, psychiatry consultation when stable Pulm *Aspiration -intubated for airway protection, vomitus in airway -prophylactic zosyn -monitor abg CV *prolonged QTC -due to possible serotonin syndrome management as above *Metabolic Acidosis -secondaty to hypermetabolic state in SZ -bicarb drip *BRANDON -possibly atn due to drug toxicity -monitor creat in anticipation of possible rhabdo in setting of SZ -agressive IVF hydration FEN -Bicarb @ 100, NS @ 100 -f/u lytes -npo -sq hep, ppi Dispo: We will continue to follow the patient. Thank you for this consultative opportunity. Problem List - Problems (1) BRANDON (acute kidney injury) Code(s): N17.9 - ACUTE KIDNEY FAILURE, UNSPECIFIED (2) Prolonged QT interval Code(s): R94.31 - ABNORMAL ELECTROCARDIOGRAM [ECG] [EKG] (3) Altered mental status Code(s): R41.82 - ALTERED MENTAL STATUS, UNSPECIFIED (4) Serotonin syndrome Code(s): G25.79 - OTHER DRUG INDUCED MOVEMENT DISORDERS (5) Overdose Code(s): T50.901A - POISONING BY UNSP DRUG/MEDS/BIOL SUBST, ACCIDENTAL, INIT Qualifiers: Encounter type: initial encounter Injury intent: undetermined intent Qualified Code(s): T50.904A - Poisoning by unspecified drugs, medicaments and biological substances, undetermined, initial encounter (6) Seizure Code(s): R56.9 - UNSPECIFIED CONVULSIONS (7) Suicidal deliberate poisoning Code(s): T65.92XA - TOXIC EFFECT OF UNSP SUBSTANCE, INTENTIONAL SELF-HARM, INIT Qualifiers: Encounter type: initial encounter Qualified Code(s): T65.92XA - Toxic effect of unspecified substance, intentional self-harm, initial encounter Visit type - Emergency Visit Emergency Visit: Yes ED Registration Date: 01/21/17 Care time: The patient presented to the Emergency Department on the above date and was hospitalized for further evaluation of their emergent condition. - New Patient This patient is new to me today: Yes Date on this admission: 01/21/17 - Critical Care Critical Care patient: Yes Total Critical Care Time (in minutes): 35 Critical Care Statement: The care of this patient involved high complexity decision making to prevent further life threatening deterioration of the patient 's condition and/or to evaluate & treat vital organ system(s) failure or risk of failure.
[2017-01-21 17:29] LABS: ARTERIAL BLD GAS O2 SATURATION 99.2 % (90-98.9); ARTERIAL BLOOD GAS HCO3 22.8 meq/L (22-26); ARTERIAL BLOOD GAS pH 7.36 (7.35-7.45)
[2017-01-21 17:31] LABS: ALLENS TEST POSITIVE; ART PUNCT SITE RIGHT RADIAL; LPM/O2% 50%; PT. ON O2? YES
[2017-01-21 17:50] LABS: URINE LEUK ESTERASE Negative (NEGATIVE)
[2017-01-21] MEDS: DEXTROSE 5%-WATER - 1,000 ML with SODIUM BICARBONATE 8.4% - 150 MEQ IVPB SCH (18:31)
[2017-01-21] MEDS: PIPERACILLIN/TAZOB 4.5 GM 4.5 GM in DEXTROSE 5%-WATER - 100 ML IVPB SCH (18:33)
[2017-01-21 18:34] LABS: ALBUMIN 3.7 g/dl (3.4-5.0); ANION GAP 11 (8-16); BILIRUBIN,TOTAL 0.3 mg/dL (0.2-1.0); CALCIUM 7.4 mg/dL (8.5-10.1); CO2 22 mmol/L (21-32); CREATININE 2.1 mg/dL (0.7-1.3); GLUCOSE,RANDOM 50 mg/dL (74-106); MAGNESIUM 3.2 mg/dL (1.8-2.4); PHOSPHOROUS 3.1 mg/dL (2.5-4.9); SGOT/AST 19 U/L (15-37); SGPT/ALT 19 U/L (12-78); TOT PROT 6.4 g/dl (6.4-8.2)
[2017-01-21 18:35] LABS: ALK PHOS 73 U/L (45-117)
[2017-01-21] MEDS ORDERED: levETIRAcetam 500 MG/5 ML INJECTION VIAL IVPB SCH (22:00)
[2017-01-21] MEDS: HEPARIN NA (PORCINE) 5,000 UNITS/ML 1ML VIAL SQ SCH (22:16)
[2017-01-21] MEDS ORDERED: MIDAZOLAM 100 MG in SODIUM CHLORIDE 100 ML IVPB SCH (22:45)
[2017-01-21] MEDS ORDERED: FOSPHENYTOIN SODIUM 100 MG/2 ML VIAL IVPB SCH (22:45)
[2017-01-21] MEDS: SODIUM CHLORIDE 1,000 ML IV SCH (23:10)
[2017-01-22] MEDS: PIPERACILLIN/TAZOB 4.5 GM 4.5 GM in DEXTROSE 5%-WATER - 100 ML IVPB SCH ×3 (00:30→13:06)
[2017-01-22] MEDS: SODIUM CHLORIDE 1,000 ML IV SCH ×2 (00:31→15:00)
[2017-01-22] MEDS: DEXTROSE 5%-WATER - 1,000 ML with SODIUM BICARBONATE 8.4% - 150 MEQ IVPB SCH ×2 (05:19→16:24)
[2017-01-22 06:17] LABS: BASO % 0.4 % (0-2.0); EOS % 0.7 % (0-4.5); MCH 29.1 pg (25.7-33.7); MCHC 34.4 g/dl (32.0-35.9); MEAN CELL VOLUME 84.5 fl (80-96); MEAN PLT VOLUME 10.4 fl (7.5-11.1); NEUT % 75.7 % (42.8-82.8); PLATELET COUNT 157 K/MM3 (134-434); RDW 13.3 % (11.9-15.9); WHITE BLOOD COUNT 15.1 K/mm3 (4.0-10.0)
[2017-01-22 06:43] LABS: ALBUMIN 3.6 g/dl (3.4-5.0); CALCIUM 7.4 mg/dL (8.5-10.1); CO2 26 mmol/L (21-32); GLUCOSE,RANDOM 75 mg/dL (74-106); MAGNESIUM 3.8 mg/dL (1.8-2.4)
[2017-01-22 07:44] LABS: ALK PHOS 73 U/L (45-117); ANION GAP 14 (8-16); BILIRUBIN,TOTAL 0.4 mg/dL (0.2-1.0); CREATININE 2.2 mg/dL (0.7-1.3); PHOSPHOROUS 3.8 mg/dL (2.5-4.9); SGOT/AST 68 U/L (15-37); SGPT/ALT 28 U/L (12-78)
[2017-01-22] MEDS ORDERED: LORazepam 2 MG/ML SDV VIAL ONE (08:34)
[2017-01-22] MEDS ORDERED: PHENYTOIN SODIUM 100 MG/2 ML VIAL IVPB ONE ×2 (08:42)
[2017-01-22] MEDS ORDERED: FOSPHENYTOIN SODIUM 100 MG/2 ML VIAL IVPUSH ONE (08:51)
[2017-01-22] MEDS ORDERED: PROPOFOL 1,000,000 MCG/100 ML VIAL ONE (09:12)
[2017-01-22] MEDS: PROPOFOL 1,000,000 MCG/100 ML VIAL IVPB SCH (09:15)
[2017-01-22] MEDS ORDERED: FOSPHENYTOIN SODIUM 100 MG/2 ML VIAL IVPB ONE ×2 (09:15)
[2017-01-22] MEDS: HEPARIN NA (PORCINE) 5,000 UNITS/ML 1ML VIAL SQ SCH ×2 (09:59→21:46)
[2017-01-22] MEDS ORDERED: CALCIUM CARBONATE 650 MG TABLET PO SCH (10:00)
[2017-01-22] MEDS ORDERED: PANTOPRAZOLE SODIUM 40 MG VIAL IVPUSH SCH (10:00)
--- NOTE | 2017-01-22 10:19 | EKG ---
Test Reason : Blood Pressure : / mmHG Vent. Rate : 098 BPM Atrial Rate : 098 BPM P-R Int : 186 ms QRS Dur : 130 ms QT Int : 424 ms P-R-T Axes : 064 030 071 degrees QTc Int : 541 ms POOR DATA QUALITY, INTERPRETATION MAY BE ADVERSELY AFFECTED NORMAL SINUS RHYTHM RIGHT BUNDLE BRANCH BLOCK LEFT VENTRICULAR HYPERTROPHY T WAVE ABNORMALITY, CONSIDER ANTERIOR ISCHEMIA ABNORMAL ECG Confirmed by MD BENJAMIN, CATRINA ([id number]) on 01/22/2017 10:19:28 AM Referred By: Confirmed By:CATRINA ALEXANDER MD
--- NOTE | 2017-01-22 10:21 | EKG ---
Test Reason : Blood Pressure : / mmHG Vent. Rate : 078 BPM Atrial Rate : 078 BPM P-R Int : 170 ms QRS Dur : 130 ms QT Int : 350 ms P-R-T Axes : 064 043 059 degrees QTc Int : 399 ms NORMAL SINUS RHYTHM NON-SPECIFIC INTRA-VENTRICULAR CONDUCTION BLOCK NONSPECIFIC T WAVE ABNORMALITY PROLONGED QT ABNORMAL ECG Confirmed by MD BENJAMIN, CATRINA ([id number]) on 01/22/2017 10:20:44 AM Referred By: Confirmed By:CATRINA ALEXANDER MD
--- NOTE | 2017-01-22 10:22 | PN ---
Progress Note (short form) - Note Progress Note: CC Recurrent episodes of seizures HPI 26 year old male presented with drug over dose ( he took escitaprolam, bactrim, buproprion and hydroxyzine) . He was positive for cocaine and ectasy. Patient had multiple seizure since he came . Ct head was normal on admission. Patient was transferred to ICU on January 21 and was intubated. He is on sedation and still have seizures, he was started on keppra 1000 mg iv bid. His Calcium was low and it was replaced. Past Medical History of drug abuse and depression ROS, SH, Medication history reviewed in chart NKDA Home Medications: Bupropion Xl 300 mg PO DAILY 12/20/16 Escitalopram Oxalate 10 mg PO DAILY 12/20/16 Neurological Examination He is sedated and intubated, no response to verbal and painful stimuli no neck stiffness pupils is reactive, corneal reclex is present ct head is normal Awaiting for EEG Assessment- Status epilepticus secondary to drug induced ( cocaine and Drugs Overdose) Plan-- suggest to incrase to keprpa 1500 mg iv bid - EEG - as he has seizure this morning advise to load with one gram of phosphenytoin and continue phosphenytoin 100 mg iv q8 hour - overall prognosis is guarded will continue to follow with primary Thanks for consult Jasen Monte MD
--- NOTE | 2017-01-22 10:42 | EKG ---
Test Reason : Blood Pressure : / mmHG Vent. Rate : 090 BPM Atrial Rate : 090 BPM P-R Int : 164 ms QRS Dur : 120 ms QT Int : 412 ms P-R-T Axes : 065 032 062 degrees QTc Int : 504 ms NORMAL SINUS RHYTHM RIGHT BUNDLE BRANCH BLOCK ABNORMAL ECG Confirmed by MD BENJAMIN, CATRINA ([id number]) on 01/22/2017 10:41:43 AM Referred By: VENICE Confirmed By:CATRINA ALEXANDER MD
--- NOTE | 2017-01-22 12:48 | PN ---
Teaching Attending Note Name of Resident: Carole Patrick ATTENDING PHYSICIAN STATEMENT I saw and evaluated the patient. I reviewed the resident's note and discussed the case with the resident. I agree with the resident's findings and plan as documented. SUBJECTIVE: Patient seen and examined in the ICU. Remains intubated and sedated. No pressors. At present, no seizures. Intake & Output 01/19/17 01/20/17 01/21/17 01/22/17 23:59 23:59 23:59 23:59 Intake Total 1802 1635 Output Total 2900 700 Balance -1098 935 Weight 170 lb Last Vital Signs Temp Pulse Resp BP Pulse Ox 98.8 F 76 14 93/67 99 01/22/17 10:00 01/22/17 12:00 01/22/17 12:14 01/22/17 12:00 01/22/17 10:36 Active Medications Acetaminophen (Ofirmev Injection -) 1,000 mg IVPB Q6H PRN PRN Reason: FEVER OR PAIN Calcium Carbonate (Calcium Carbonate -) 650 mg PO BID [facility] Last Admin: 01/22/17 11:32 Dose: Not Given Heparin Sodium (Porcine) (Heparin -) 5,000 unit SQ BID [facility] Last Admin: 01/22/17 09:59 Dose: 5,000 unit Sodium Bicarbonate 150 meq/ (Dextrose) 1,150 mls @ 100 mls/hr IVPB Q12H [facility] Last Admin: 01/22/17 05:19 Dose: 100 mls/hr Sodium Chloride (Normal Saline -) 1,000 mls @ 100 mls/hr IV ASDIR [facility] Last Admin: 01/22/17 00:31 Dose: 100 mls/hr Piperacillin Sod/Tazobactam (Sod 4.5 gm/ Dextrose) 100 mls @ 200 mls/hr IVPB Q6H [facility] Last Admin: 01/22/17 05:19 Dose: 200 mls/hr Midazolam HCl 100 mg/ Sodium (Chloride) 100 mls @ 1 mls/hr IVPB TITR MARIA DOLORES; 1 MG/ HR PRN Reason: Protocol Stop: 01/22/17 22:44 Last Titration: 01/22/17 09:02 Dose: 8 mg/hr, 8 mls/hr Propofol (Diprivan -) 1,000,000 mcg in 100 mls @ 2.313 mls/hr IVPB TITR MARIA DOLORES; 5 MCG/KG/MIN PRN Reason: Protocol Last Admin: 01/22/17 09:15 Dose: 10 mcg/kg/min, 4.627 mls/hr Levetiracetam (Keppra Injection -) 1,500 mg IVPB BID MARIA DOLORES Lorazepam (Ativan Injection -) 1 mg IVPUSH Q4H PRN PRN Reason: AGITATION Last Admin: 01/21/17 16:50 Dose: 1 mg Ondansetron HCl (Zofran Injection) 4 mg IVPB Q4H PRN PRN Reason: NAUSEA AND/OR VOMITING Pantoprazole Sodium (Protonix Iv) 40 mg IVPUSH DAILY MARIA DOLORES Last Admin: 01/22/17 10:00 Dose: 40 mg Gen: Intubated and sedated Heart: tachycardic, regular Lung: scattered rhonchi Abd: soft, nontender Ext: no edema Laboratory Results - last 24 hr 01/21/17 01/21/17 01/21/17 08:00 15:40 17:00 WBC RBC Hgb Hct MCV MCH MCHC RDW Plt Count MPV Neutrophils % Lymphocytes % Monocytes % Eosinophils % Basophils % Anticoagulation Therapy Puncture Site Y ABG pH 7.18 L* ABG pCO2 at Pt Temp 33.8 L ABG pO2 at Pt Temp 95.6 ABG HCO3 12.1 L* ABG O2 Sat (Measured) 94.3 ABG O2 Content 21.6 ABG Base Excess -15.7 L* Jono Test Positive O2 Delivery Device Oxygen Flow Rate Yes Vent Mode Vent Rate Mechanical Rate Pressure Support Vent Sodium 140 Potassium 4.3 Chloride 107 Carbon Dioxide 22 D Anion Gap 11 BUN 17 Creatinine 2.1 H D Creat Clearance w eGFR 38.67 Random Glucose 50 L D Calcium 7.4 L Phosphorus 3.1 Magnesium 3.2 H D Total Bilirubin 0.3 AST 19 D ALT 19 Alkaline Phosphatase 73 D Creatine Kinase Creatine Kinase Index CK-MB (CK-2) Total Protein 6.4 Albumin 3.7 TSH Ur Leukocyte Esterase Negative 01/21/17 01/21/17 01/21/17 17:10 18:00 18:00 WBC RBC Hgb Hct MCV MCH MCHC RDW Plt Count MPV Neutrophils % Lymphocytes % Monocytes % Eosinophils % Basophils % Anticoagulation Therapy Y Puncture Site Right radial ABG pH 7.36 D ABG pCO2 at Pt Temp 41.2 D ABG pO2 at Pt Temp 180.0 H* ABG HCO3 22.8 ABG O2 Sat (Measured) 99.2 H ABG O2 Content 21.3 ABG Base Excess -2.0 Jono Test Positive O2 Delivery Device Y Oxygen Flow Rate 50% Vent Mode Y Vent Rate Y Mechanical Rate Y Pressure Support Vent Y Sodium Potassium Chloride Carbon Dioxide Anion Gap BUN Creatinine Creat Clearance w eGFR Random Glucose Calcium Phosphorus Magnesium Total Bilirubin AST ALT Alkaline Phosphatase Creatine Kinase 1373 H Creatine Kinase Index 0.1 CK-MB (CK-2) 1.729 Total Protein Albumin TSH 0.43 D Ur Leukocyte Esterase 01/22/17 01/22/17 05:55 05:55 WBC 15.1 H D RBC 5.05 Hgb 14.7 D Hct 42.7 D MCV 84.5 MCH 29.1 MCHC 34.4 RDW 13.3 Plt Count 157 MPV 10.4 Neutrophils % 75.7 Lymphocytes % 11.5 D Monocytes % 11.7 H Eosinophils % 0.7 Basophils % 0.4 Anticoagulation Therapy Puncture Site ABG pH ABG pCO2 at Pt Temp ABG pO2 at Pt Temp ABG HCO3 ABG O2 Sat (Measured) ABG O2 Content ABG Base Excess Jono Test O2 Delivery Device Oxygen Flow Rate Vent Mode Vent Rate Mechanical Rate Pressure Support Vent Sodium 142 Potassium 3.4 L D Chloride 102 Carbon Dioxide 26 Anion Gap 14 BUN 21 H D Creatinine 2.2 H Creat Clearance w eGFR 36.65 Random Glucose 75 D Calcium 7.4 L Phosphorus 3.8 D Magnesium 3.8 H Total Bilirubin 0.4 D AST 68 H D ALT 28 D Alkaline Phosphatase 73 Creatine Kinase Creatine Kinase Index CK-MB (CK-2) Total Protein 6.0 L Albumin 3.6 TSH Ur Leukocyte Esterase ASSESSMENT AND PLAN: Drug Overdose Suspect Serotonin Syndrome Polysubstance Abuse Metabolic Acidosis Acute Kidney Injury - AEDs per Neuro - aggressive IVF - bicarbonate drip noted, will D/C after serial EKG stable - Empiric ABX noted - monitor QTc - DVT/GI prophylaxis Dr Trent Critical care time spent in reviewing chart, evaluating patient and formulating plan - 40 minutes.
[2017-01-22] MEDS: levETIRAcetam 500 MG/5 ML INJECTION VIAL IVPB SCH ×2 (13:07→21:47)
[2017-01-22] MEDS ORDERED: PT OWN MED DRAWER 7, Y5N ONE ×2 (16:28→18:18)
--- NOTE | 2017-01-22 17:14 | PN ---
Physical Exam: SUBJECTIVE: Patient seen and examined at bedside. 24 hr events -grand mal seizure last night, received ativan and Keppra -as per nurse, had two other seizures -intubated to protect airway -elevated Qtc 504 Today -resting in bed, intubated, sedated -Pt on versed, keppra, fosphenytoin, protonix -not on pressors -no seizure activity noted since 8 AM OBJECTIVE: Intubated -01/21 Vital Signs Period Temp Pulse Resp BP Sys/Ward Pulse Ox Last 24 Hr 97.7 F-99.4 F 76-105 13-20 85-125/51-92 97-100 GENERAL: The patient is sedated and intubated, resting in bed HEAD: Normal with no signs of trauma. EYES: pupils equal and reactive to light, anicteric NECK: Trachea midline LUNGS: Breath sounds equal, clear to auscultation bilaterally, no wheezes, no crackles, no accessory muscle use HEART: Regular rate and rhythm, S1, S2 without murmur, rub or gallop. ABDOMEN: Soft, nontender, nondistended, normoactive bowel sounds EXTREMITIES: 2+ posterior tibial pulses, no edema. NEUROLOGICAL: unable to assess as pt sedated Laboratory Results - last 24 hr 01/21/17 01/21/17 01/21/17 08:00 17:00 17:10 WBC RBC Hgb Hct MCV MCH MCHC RDW Plt Count MPV Neutrophils % Lymphocytes % Monocytes % Eosinophils % Basophils % Anticoagulation Therapy Y Puncture Site Right radial ABG pH 7.36 D ABG pCO2 at Pt Temp 41.2 D ABG pO2 at Pt Temp 180.0 H* ABG HCO3 22.8 ABG O2 Sat (Measured) 99.2 H ABG O2 Content 21.3 ABG Base Excess -2.0 Jono Test Positive O2 Delivery Device Y Oxygen Flow Rate 50% Vent Mode Y Vent Rate Y Mechanical Rate Y Pressure Support Vent Y Sodium 140 Potassium 4.3 Chloride 107 Carbon Dioxide 22 D Anion Gap 11 BUN 17 Creatinine 2.1 H D Creat Clearance w eGFR 38.67 Random Glucose 50 L D Calcium 7.4 L Phosphorus 3.1 Magnesium 3.2 H D Total Bilirubin 0.3 AST 19 D ALT 19 Alkaline Phosphatase 73 D Creatine Kinase Creatine Kinase Index CK-MB (CK-2) Total Protein 6.4 Albumin 3.7 TSH Ur Leukocyte Esterase Negative 01/21/17 01/21/17 01/22/17 18:00 18:00 05:55 WBC 15.1 H D RBC 5.05 Hgb 14.7 D Hct 42.7 D MCV 84.5 MCH 29.1 MCHC 34.4 RDW 13.3 Plt Count 157 MPV 10.4 Neutrophils % 75.7 Lymphocytes % 11.5 D Monocytes % 11.7 H Eosinophils % 0.7 Basophils % 0.4 Anticoagulation Therapy Puncture Site ABG pH ABG pCO2 at Pt Temp ABG pO2 at Pt Temp ABG HCO3 ABG O2 Sat (Measured) ABG O2 Content ABG Base Excess Jono Test O2 Delivery Device Oxygen Flow Rate Vent Mode Vent Rate Mechanical Rate Pressure Support Vent Sodium Potassium Chloride Carbon Dioxide Anion Gap BUN Creatinine Creat Clearance w eGFR Random Glucose Calcium Phosphorus Magnesium Total Bilirubin AST ALT Alkaline Phosphatase Creatine Kinase 1373 H Creatine Kinase Index 0.1 CK-MB (CK-2) 1.729 Total Protein Albumin TSH 0.43 D Ur Leukocyte Esterase 01/22/17 05:55 WBC RBC Hgb Hct MCV MCH MCHC RDW Plt Count MPV Neutrophils % Lymphocytes % Monocytes % Eosinophils % Basophils % Anticoagulation Therapy Puncture Site ABG pH ABG pCO2 at Pt Temp ABG pO2 at Pt Temp ABG HCO3 ABG O2 Sat (Measured) ABG O2 Content ABG Base Excess Jono Test O2 Delivery Device Oxygen Flow Rate Vent Mode Vent Rate Mechanical Rate Pressure Support Vent Sodium 142 Potassium 3.4 L D Chloride 102 Carbon Dioxide 26 Anion Gap 14 BUN 21 H D Creatinine 2.2 H Creat Clearance w eGFR 36.65 Random Glucose 75 D Calcium 7.4 L Phosphorus 3.8 D Magnesium 3.8 H Total Bilirubin 0.4 D AST 68 H D ALT 28 D Alkaline Phosphatase 73 Creatine Kinase Creatine Kinase Index CK-MB (CK-2) Total Protein 6.0 L Albumin 3.6 TSH Ur Leukocyte Esterase Active Medications Generic Name Dose Route Start Last Admin Trade Name Freq PRN Reason Stop Dose Admin Acetaminophen 1,000 mg 01/21/17 16:43 Ofirmev Injection - IVPB Q6H PRN FEVER OR PAIN Calcium Carbonate 650 mg 01/22/17 10:00 01/22/17 11:32 Calcium Carbonate - PO Not Given BID MARIA DOLORES Heparin Sodium (Porcine) 5,000 unit 01/21/17 22:00 01/22/17 09:59 Heparin - SQ 5,000 unit BID MARIA DOLORES Administration Sodium Bicarbonate 150 meq/ 1,150 mls @ 100 mls/hr 01/21/17 16:45 01/22/17 16 :24 Dextrose IVPB 100 mls/hr Q12H MARIA DOLORES Administration Piperacillin Sod/Tazobactam 100 mls @ 200 mls/hr 01/21/17 18:00 01/22/17 13: 06 Sod 4.5 gm/ Dextrose IVPB 200 mls/hr Q6H MARIA DOLORES Administration Midazolam HCl 100 mg/ Sodium 100 mls @ 1 mls/hr 01/21/17 22:45 01/22/17 14:05 Chloride IVPB 01/22/17 22:44 10 mg/hr TITR MARIA DOLORES 10 mls/hr Protocol Titration 1 MG/HR Propofol 1,000,000 mcg in 100 mls @ 2.313 mls/hr 01/22/17 09:15 01/22/17 10: 05 Diprivan - IVPB 0 mcg/kg/min TITR MARIA DOLORES 0 mls/hr Protocol Titration 5 MCG/KG/MIN Sodium Chloride 1,000 mls @ 200 mls/hr 01/22/17 13:34 Normal Saline - IV ASDIR MARIA DOLORES Levetiracetam 1,500 mg 01/22/17 09:16 01/22/17 13:07 Keppra Injection - IVPB 1,500 mg BID MARIA DOLORES Administration Lorazepam 1 mg 01/21/17 15:29 01/21/17 16:50 Ativan Injection - IVPUSH 1 mg Q4H PRN Administration AGITATION Ondansetron HCl 4 mg 01/21/17 16:29 Zofran Injection IVPB Q4H PRN NAUSEA AND/OR VOMITING Pantoprazole Sodium 40 mg 01/22/17 10:00 01/22/17 10:00 Protonix Iv IVPUSH 40 mg DAILY MARIA DOLORES Administration ASSESSMENT/PLAN: This is a 26 yo M with PMH of drug abuse, who presented with drug OD on escitaprolam, bactrim, buproprion and hydroxyzine. Tox positive for cocaine and ecstasy. Pt managed in ICU s/p OD. NEURO #Drug Overdose 2/2 possible suicide attempt -escitaprolam, bactrim, buproprion and hydroxyzine, cocaine, MDMA -possible Serotonin Syndrome- escitalopram -serial ekg's, tele monitoring -watch for hypothermia, myoclonus, rigidity -aggressive fluid resuscitation- NS 200cc/hr #New seizures 2/2 bupropion -Bupropion lowers seizure threshold -Continue Keppra 1500 mg IV BID -Continue phosphenytoin 100 mg IV q8h -sedation with propofol, versed -F/u EEG -Will follow neuro recs PULMONARY #Aspiration -intubated for airway protection, vomit in airway -continue zosyn CARDIO -continue to follow QT interval -serial EKGs RENAL #Metabolic Acidosis 2/2 hypermetabolic state, seizures -bicarb gtt -elevated CK, continue to trend- possible rhabdo #BRANDON -possibly ATN due to drug toxicity, interaction -aggressive IVF hydration #Hypocalcemia -Corrected Ca this mornin.7 -Repleted with Ca Carbonate 650mg BID #F/E/N -Bicarb @ 100, NS @ 200 cc/hr -will continue to follow electrolytes -npo -Hep 5000 SQ BID, PPI #Disposition Continued ICU management Dispo: We will continue to follow the patient. Thank you for this consultative opportunity. Visit type - Emergency Visit Emergency Visit: No - New Patient This patient is new to me today: Yes Date on this admission: 01/22/17 - Critical Care Critical Care patient: Yes Total Critical Care Time (in minutes): 31 Critical Care Statement: The care of this patient involved high complexity decision making to prevent further life threatening deterioration of the patient 's condition and/or to evaluate & treat vital organ system(s) failure or risk of failure.
[2017-01-22] MEDS ORDERED: PROPOFOL 200 MG/20 ML VIAL IVPUSH ONE ×2 (17:27→18:43)
[2017-01-22 18:01] LABS: ARTERIAL BLD GAS O2 SATURATION 98.6 % (90-98.9); ARTERIAL BLOOD GAS BASE EXCESS 3.6 meq/l (-2-2); ARTERIAL BLOOD GAS HCO3 27.1 meq/L (22-26); ARTERIAL BLOOD GAS pH 7.46 (7.35-7.45)
[2017-01-22 18:02] LABS: ALLENS TEST POSITIVE; ART PUNCT SITE RIGHT RADIAL; LPM/O2% 40%; PT. ON O2? YES
[2017-01-22 18:03] LABS: TYPE OF O2 MECHANICAL VENTILATO
[2017-01-22 18:04] LABS: VENT RATE 14; VT/PRESS 450
[2017-01-22 20:00] LABS: ALBUMIN 2.8 g/dl (3.4-5.0); ALK PHOS 61 U/L (45-117); ANION GAP 6 (8-16); BILIRUBIN,TOTAL 0.3 mg/dL (0.2-1.0); CO2 29 mmol/L (21-32); CREATININE 1.3 mg/dL (0.7-1.3); GLUCOSE,RANDOM 106 mg/dL (74-106); MAGNESIUM 2.9 mg/dL (1.8-2.4); PHOSPHOROUS 2.9 mg/dL (2.5-4.9); SGOT/AST 154 U/L (15-37); SGPT/ALT 46 U/L (12-78); TOT PROT 4.9 g/dl (6.4-8.2)
[2017-01-22 20:04] LABS: CALCIUM 6.4 mg/dL (8.5-10.1)
[2017-01-22] MEDS ORDERED: SODIUM CHLORIDE 1,000 ML IV SCH (20:11)
[2017-01-22] MEDS: KCL 10 MEQ IVPB 10 MEQ/100 ML INFUS.BAG IVPB SCH ×3 (20:16→23:00)
--- NOTE | 2017-01-22 20:18 | PN ---
Progress Note (short form) - Note Progress Note: CC: overdose/qtc prolongation No ventricular ectopy on tele. heart rate trending down. remains intubated and sedated. Current Medications Acetaminophen (Ofirmev Injection -) 1,000 mg IVPB Q6H PRN PRN Reason: FEVER OR PAIN Calcium Carbonate (Calcium Carbonate -) 650 mg PO BID [facility] Last Admin: 01/22/17 11:32 Dose: Not Given Calcium Gluconate (Calcium Gluconate 10% -) 1,000 mg IVPB ONCE ONE Stop: 01/22/17 20:12 Heparin Sodium (Porcine) (Heparin -) 5,000 unit SQ BID [facility] Last Admin: 01/22/17 09:59 Dose: 5,000 unit Piperacillin Sod/Tazobactam (Sod 4.5 gm/ Dextrose) 100 mls @ 200 mls/hr IVPB Q6H [facility] Last Admin: 01/22/17 13:06 Dose: 200 mls/hr Midazolam HCl 100 mg/ Sodium (Chloride) 100 mls @ 1 mls/hr IVPB TITR MARIA DOLORES; 1 MG/ HR PRN Reason: Protocol Stop: 01/22/17 22:44 Last Titration: 01/22/17 14:05 Dose: 10 mg/hr, 10 mls/hr Propofol (Diprivan -) 1,000,000 mcg in 100 mls @ 2.313 mls/hr IVPB TITR MARIA DOLORES; 5 MCG/KG/MIN PRN Reason: Protocol Last Titration: 01/22/17 10:05 Dose: 0 mcg/kg/min, 0 mls/hr Potassium Chloride (Potassium Chloride 10 Meq Premix Ivpb -) 10 meq in 100 mls @ 100 mls/hr IVPB Q60M [facility] Stop: 01/22/17 22:59 Sodium Chloride (Normal Saline -) 1,000 mls @ 300 mls/hr IV ASDIR [facility] Levetiracetam (Keppra Injection -) 1,500 mg IVPB BID [facility] Last Admin: 01/22/17 13:07 Dose: 1,500 mg Lorazepam (Ativan Injection -) 1 mg IVPUSH Q4H PRN PRN Reason: AGITATION Last Admin: 01/21/17 16:50 Dose: 1 mg Ondansetron HCl (Zofran Injection) 4 mg IVPB Q4H PRN PRN Reason: NAUSEA AND/OR VOMITING Pantoprazole Sodium (Protonix Iv) 40 mg IVPUSH DAILY MARIA DOLORES Last Admin: 01/22/17 10:00 Dose: 40 mg Vital Signs - 24 hr 01/21/17 01/21/17 01/21/17 21:00 21:12 21:20 Temperature Pulse Rate 89 Respiratory 14 14 13 Rate Blood Pressure 96/59 O2 Sat by Pulse 99 Oximetry (%) 01/21/17 01/22/17 01/22/17 23:20 00:00 00:01 Temperature 98.7 F Pulse Rate 86 91 H Respiratory 13 17 16 Rate Blood Pressure 95/54 O2 Sat by Pulse 99 99 Oximetry (%) 01/22/17 01/22/17 01/22/17 02:00 03:24 04:00 Temperature 98.2 F Pulse Rate 105 H 89 Respiratory 15 20 19 Rate Blood Pressure 96/62 125/92 O2 Sat by Pulse Oximetry (%) 01/22/17 01/22/17 01/22/17 06:00 06:29 08:00 Temperature 97.7 F Pulse Rate 82 80 Respiratory 13 20 13 Rate Blood Pressure 104/66 100/72 O2 Sat by Pulse Oximetry (%) 01/22/17 01/22/17 01/22/17 09:25 10:00 10:36 Temperature 98.8 F Pulse Rate 77 83 Respiratory 14 13 Rate Blood Pressure 85/51 O2 Sat by Pulse 97 99 Oximetry (%) 01/22/17 01/22/17 01/22/17 12:00 12:14 13:34 Temperature 98.4 F Pulse Rate 76 90 Respiratory 15 14 15 Rate Blood Pressure 93/67 98/61 O2 Sat by Pulse Oximetry (%) 01/22/17 01/22/17 01/22/17 14:21 16:00 16:15 Temperature Pulse Rate 80 Respiratory 17 15 16 Rate Blood Pressure 94/62 O2 Sat by Pulse Oximetry (%) 01/22/17 01/22/17 18:00 18:59 Temperature 98.8 F Pulse Rate 88 Respiratory 15 14 Rate Blood Pressure 128/85 O2 Sat by Pulse Oximetry (%) Intake & Output 01/20/17 01/21/17 01/22/17 01/23/17 07:59 07:59 07:59 07:59 Intake Total 1769 7563 Output Total 3606 550 Balance -163 2273 Weight 170 lb nad, calm, intubated, sedated jvd flat, neck supple ctab, mechanical ventilation rrr nl s1, s2 no mrg + bs soft nt nd ext without e/c/c no jaundice, diaphoresis no carotid bruits. CBC, BMP 01/22/17 05:55 01/22/17 18:00 EKG 1: nsr. lvh. incomplete rbbb. bline prolonged qtc. diffuse st-t wave ab. anterior /anterolateral twi/biphasic t waves. EKG 2: sinus tach, rbbb. prolonged qtc. non-specific st-t wave ab. t waves no longer inverted/biphasic. tele: sr 26 y.o. smoker with h/o polysubstance abuse preseted to ER after overdose of multiple medications including Escitaprolam, Bactrim, Buproprion and Hydroxyzine , ER course complicated by brief surgery and progressive prolongation of qtc. prolonged qt in setting of overdose/possible serotonin syndrome. - 01/22 qtc remains prolonged. con't. serial ekg monitoring - con't tele monitoring (thus far benign). If has ventricular ectopy overnight can give magnesium 2g iv over 2 minutes or can consider magnesium drip. - ongoing mgm't of overdose/toxicity/acidosis per pmd/critical care team. - avoid qtc prolonging drugs: if possible try alternatives for PPI, zofran, propafol and zosyn. . ST-T wave changes, qrs widening - likely in response to metabolic derangements - if does not normalize with correction of metabolic abnormalities can consider echo.
[2017-01-22] MEDS ORDERED: CALCIUM GLUCONATE 10% - 1,000 MG/10 ML VIAL ONE (20:20)
[2017-01-22] MEDS ORDERED: CALCIUM GLUCONATE 10% - 1,000 MG/10 ML VIAL IVPB ONE (20:30)
[2017-01-22] MEDS ORDERED: fentaNYL CITRATE 250 MCG/5 ML VIAL ONE (20:58)
--- NOTE | 2017-01-22 21:01 | PN ---
Progress Note, Physician History of Present Illness: intubated sedated - Current Medication List Current Medications: Active Medications Acetaminophen (Ofirmev Injection -) 1,000 mg IVPB Q6H PRN PRN Reason: FEVER OR PAIN Heparin Sodium (Porcine) (Heparin -) 5,000 unit SQ BID [facility] Last Admin: 01/22/17 09:59 Dose: 5,000 unit Piperacillin Sod/Tazobactam (Sod 4.5 gm/ Dextrose) 100 mls @ 200 mls/hr IVPB Q6H [facility] Last Admin: 01/22/17 13:06 Dose: 200 mls/hr Midazolam HCl 100 mg/ Sodium (Chloride) 100 mls @ 1 mls/hr IVPB TITR MARIA DOLORES; 1 MG/ HR PRN Reason: Protocol Stop: 01/22/17 22:44 Last Titration: 01/22/17 14:05 Dose: 10 mg/hr, 10 mls/hr Propofol (Diprivan -) 1,000,000 mcg in 100 mls @ 2.313 mls/hr IVPB TITR MARIA DOLORES; 5 MCG/KG/MIN PRN Reason: Protocol Last Titration: 01/22/17 10:05 Dose: 0 mcg/kg/min, 0 mls/hr Potassium Chloride (Potassium Chloride 10 Meq Premix Ivpb -) 10 meq in 100 mls @ 100 mls/hr IVPB Q60M [facility] Stop: 01/22/17 22:59 Last Admin: 01/22/17 20:16 Dose: 100 mls/hr Sodium Chloride (Normal Saline -) 1,000 mls @ 300 mls/hr IV ASDIR [facility] Last Admin: 01/22/17 20:18 Dose: 300 mls/hr Fentanyl 500 mcg/ Dextrose 100 mls @ 4 mls/hr IVPB TITR MARIA DOLORES; 20 MCG/HR PRN Reason: Protocol Levetiracetam (Keppra Injection -) 1,500 mg IVPB BID [facility] Last Admin: 01/22/17 13:07 Dose: 1,500 mg Lorazepam (Ativan Injection -) 1 mg IVPUSH Q4H PRN PRN Reason: AGITATION Last Admin: 01/21/17 16:50 Dose: 1 mg Ondansetron HCl (Zofran Injection) 4 mg IVPB Q4H PRN PRN Reason: NAUSEA AND/OR VOMITING Pantoprazole Sodium (Protonix Iv) 40 mg IVPUSH DAILY MARIA DOLORES Last Admin: 01/22/17 10:00 Dose: 40 mg - Objective Vital Signs: Vital Signs Temperature 98.8 F 01/22/17 18:00 Pulse Rate 82 01/22/17 20:00 Respiratory Rate 14 01/22/17 20:00 Blood Pressure 101/63 01/22/17 20:00 O2 Sat by Pulse Oximetry (%) 100 01/22/17 20:38 Constitutional: Yes: No Distress HENT: Yes: Atraumatic Neck: Yes: Supple Cardiovascular: Yes: Regular Rate and Rhythm Respiratory: Yes: Rhonchi Gastrointestinal: Yes: Normal Bowel Sounds Extremities: Yes: WNL Labs: CBC, BMP 01/22/17 05:55 01/22/17 18:00 Problem List - Problems (1) Overdose Code(s): T50.901A - POISONING BY UNSP DRUG/MEDS/BIOL SUBST, ACCIDENTAL, INIT Qualifiers: Encounter type: initial encounter Injury intent: undetermined intent Qualified Code(s): T50.904A - Poisoning by unspecified drugs, medicaments and biological substances, undetermined, initial encounter (2) Seizure Assessment/Plan: on keppra Code(s): R56.9 - UNSPECIFIED CONVULSIONS (3) Suicidal deliberate poisoning Assessment/Plan: will get psych once stable Code(s): T65.92XA - TOXIC EFFECT OF UNSP SUBSTANCE, INTENTIONAL SELF-HARM, INIT Qualifiers: Encounter type: initial encounter Qualified Code(s): T65.92XA - Toxic effect of unspecified substance, intentional self-harm, initial encounter (4) Aspiration into airway Assessment/Plan: on abx Code(s): T17.908A - UNSP FB IN RESP TRACT, PART UNSP CAUSING OTH INJURY, INIT Assessment/Plan cc timr 35 min spoke to mother and sister at bed side seperated from and lives with parents
[2017-01-22] MEDS: FENTANYL INJECTION 500 MCG in DEXTROSE 5%-WATER - 90 ML IVPB SCH (21:51)
[2017-01-22] MEDS: SUCRALFATE 1 GM/10 ML UNIT DOSE CUPS PO SCH (22:00)
[2017-01-22 23:58] LABS: CPK 22250 IU/L (39-308)
[2017-01-23] MEDS ORDERED: fentaNYL CITRATE 250 MCG/5 ML VIAL ONE ×2 (00:37→06:50)
[2017-01-23] MEDS: PIPERACILLIN/TAZOB 4.5 GM 4.5 GM in DEXTROSE 5%-WATER - 100 ML IVPB SCH ×4 (00:51→18:28)
[2017-01-23 06:17] LABS: BASO % 0.8 % (0-2.0); EOS % 2.1 % (0-4.5); MCH 29.4 pg (25.7-33.7); MCHC 34.7 g/dl (32.0-35.9); MEAN CELL VOLUME 84.9 fl (80-96); MEAN PLT VOLUME 10.1 fl (7.5-11.1); NEUT % 71.8 % (42.8-82.8); PLATELET COUNT 129 K/MM3 (134-434); RDW 12.9 % (11.9-15.9); WHITE BLOOD COUNT 10.5 K/mm3 (4.0-10.0)
[2017-01-23 06:25] LABS: INR 1.21 (0.82-1.09); PROTHROMBIN TIME (PATIENT) 13.7 SEC (9.98-11.88)
[2017-01-23 06:54] LABS: ALBUMIN 2.6 g/dl (3.4-5.0); ALK PHOS 58 U/L (45-117); ANION GAP 7 (8-16); BILIRUBIN,TOTAL 0.5 mg/dL (0.2-1.0); CALCIUM 7.2 mg/dL (8.5-10.1); CO2 27 mmol/L (21-32); GLUCOSE,RANDOM 63 mg/dL (74-106); MAGNESIUM 2.2 mg/dL (1.8-2.4); PHOSPHOROUS 3.2 mg/dL (2.5-4.9); SGOT/AST 175 U/L (15-37); SGPT/ALT 52 U/L (12-78); TOT PROT 4.4 g/dl (6.4-8.2)
[2017-01-23] MEDS: SUCRALFATE 1 GM/10 ML UNIT DOSE CUPS PO SCH ×2 (10:31→21:49)
[2017-01-23] MEDS: levETIRAcetam 500 MG/5 ML INJECTION VIAL IVPB SCH ×2 (10:48→21:47)
[2017-01-23] MEDS: HEPARIN NA (PORCINE) 5,000 UNITS/ML 1ML VIAL SQ SCH ×2 (11:01→21:46)
--- NOTE | 2017-01-23 11:37 | PN ---
Progress Note (short form) - Note Progress Note: PULMONARY/CCM Pt seen and examined in the ICU. Remains intubated, sedated. Vitals more stable. Following commands. Placed on CPAP/PS. Last Vital Signs Temp Pulse Resp BP Pulse Ox 98.2 F 67 14 110/82 100 01/23/17 00:00 01/23/17 08:00 01/23/17 09:10 01/23/17 08:00 01/23/17 08:00 Intake & Output 01/20/17 01/21/17 01/22/17 01/23/17 23:59 23:59 23:59 23:59 Intake Total 1802 4908 3331 Output Total 2900 1700 125 Balance -1098 3208 3206 Weight 170 lb Gen: intubated, sedated Heart: RRR Lung: decreased breath sounds at the bases Abd: soft, nontender Ext: no edema CBC, BMP 01/23/17 05:05 01/23/17 05:05 Active Medications Acetaminophen (Ofirmev Injection -) 1,000 mg IVPB Q6H PRN PRN Reason: FEVER OR PAIN Heparin Sodium (Porcine) (Heparin -) 5,000 unit SQ BID [facility] Last Admin: 01/23/17 11:01 Dose: 5,000 unit Piperacillin Sod/Tazobactam (Sod 4.5 gm/ Dextrose) 100 mls @ 200 mls/hr IVPB Q6H [facility] Last Admin: 01/23/17 06:56 Dose: 200 mls/hr Propofol (Diprivan -) 1,000,000 mcg in 100 mls @ 2.313 mls/hr IVPB TITR MARIA DOLORES; 5 MCG/KG/MIN PRN Reason: Protocol Last Titration: 01/22/17 10:05 Dose: 0 mcg/kg/min, 0 mls/hr Sodium Chloride (Normal Saline -) 1,000 mls @ 300 mls/hr IV ASDIR [facility]IA DOLORES Last Admin: 01/22/17 20:18 Dose: 300 mls/hr Fentanyl 500 mcg/ Dextrose 100 mls @ 4 mls/hr IVPB TITR MARIA DOLORES; 20 MCG/HR PRN Reason: Protocol Last Admin: 01/22/17 21:51 Dose: 4 mls/hr Levetiracetam (Keppra Injection -) 1,500 mg IVPB BID [facility] Last Admin: 01/23/17 10:48 Dose: 1,500 mg Lorazepam (Ativan Injection -) 1 mg IVPUSH Q4H PRN PRN Reason: AGITATION Last Admin: 01/21/17 16:50 Dose: 1 mg Sucralfate (Carafate Oral Suspension -) 1 gm PO BID [facility] DOLORES Last Admin: 01/23/17 10:31 Dose: Not Given A/P Drug Overdose Suspect Serotonin Syndrome Polysubstance Abuse Metabolic Acidosis Acute Kidney Injury - antiepileptics per neurology - continue IVF, can decrease rate - replete lytes - empiric antibiotics - monitor QTc - hold sedation - spontaneous breathing trials as tolerated - wean to extubate - DVT/GI prophylaxis - continue ICU monitoring critical care time spent in reviewing chart, evaluating patient and formulating plan 35 min
--- NOTE | 2017-01-23 12:55 | PN ---
Progress Note, Physician History of Present Illness: extubated - Current Medication List Current Medications: Active Medications Acetaminophen (Ofirmev Injection -) 1,000 mg IVPB Q6H PRN PRN Reason: FEVER OR PAIN Heparin Sodium (Porcine) (Heparin -) 5,000 unit SQ BID [facility] Last Admin: 01/23/17 11:01 Dose: 5,000 unit Piperacillin Sod/Tazobactam (Sod 4.5 gm/ Dextrose) 100 mls @ 200 mls/hr IVPB Q6H [facility] Last Admin: 01/23/17 06:56 Dose: 200 mls/hr Propofol (Diprivan -) 1,000,000 mcg in 100 mls @ 2.313 mls/hr IVPB TITR MARIA DOLORES; 5 MCG/KG/MIN PRN Reason: Protocol Last Titration: 01/22/17 10:05 Dose: 0 mcg/kg/min, 0 mls/hr Fentanyl 500 mcg/ Dextrose 100 mls @ 4 mls/hr IVPB TITR MARIA DOLORES; 20 MCG/HR PRN Reason: Protocol Last Admin: 01/22/17 21:51 Dose: 4 mls/hr Sodium Chloride (Normal Saline -) 1,000 mls @ 100 mls/hr IV ASDIR MARIA DOLORES Potassium Chloride (Potassium Chloride 10 Meq Premix Ivpb -) 10 meq in 100 mls @ 100 mls/hr IVPB Q60M [facility] Stop: 01/23/17 15:44 Levetiracetam (Keppra Injection -) 1,500 mg IVPB BID [facility] Last Admin: 01/23/17 10:48 Dose: 1,500 mg Lorazepam (Ativan Injection -) 1 mg IVPUSH Q4H PRN PRN Reason: AGITATION Last Admin: 01/21/17 16:50 Dose: 1 mg Sucralfate (Carafate Oral Suspension -) 1 gm PO BID [facility] Last Admin: 01/23/17 10:31 Dose: Not Given - Objective Vital Signs: Vital Signs Temperature 98.2 F 01/23/17 00:00 Pulse Rate 83 01/23/17 12:00 Respiratory Rate 20 01/23/17 12:00 Blood Pressure 94/71 01/23/17 12:00 O2 Sat by Pulse Oximetry (%) 100 01/23/17 10:00 HENT: Yes: Atraumatic Neck: Yes: Supple Cardiovascular: Yes: Regular Rate and Rhythm Respiratory: Yes: CTA Bilaterally Gastrointestinal: Yes: Normal Bowel Sounds Extremities: Yes: WNL Labs: CBC, BMP 01/23/17 05:05 01/23/17 05:05 INR, PTT INR 1.21 (0.82-1.09) H 01/23/17 05:05 Problem List - Problems (1) Overdose Assessment/Plan: t is intubated Code(s): T50.901A - POISONING BY UNSP DRUG/MEDS/BIOL SUBST, ACCIDENTAL, INIT Qualifiers: Encounter type: initial encounter Injury intent: undetermined intent Qualified Code(s): T50.904A - Poisoning by unspecified drugs, medicaments and biological substances, undetermined, initial encounter (2) Seizure Assessment/Plan: on keppra Code(s): R56.9 - UNSPECIFIED CONVULSIONS (3) Suicidal deliberate poisoning Assessment/Plan: will get psych once stable Code(s): T65.92XA - TOXIC EFFECT OF UNSP SUBSTANCE, INTENTIONAL SELF-HARM, INIT Qualifiers: Encounter type: initial encounter Qualified Code(s): T65.92XA - Toxic effect of unspecified substance, intentional self-harm, initial encounter (4) Aspiration into airway Assessment/Plan: on abx Code(s): T17.908A - UNSP FB IN RESP TRACT, PART UNSP CAUSING OTH INJURY, INIT
[2017-01-23] MEDS: SODIUM CHLORIDE 1,000 ML IV SCH (13:00)
[2017-01-23] MEDS: KCL 10 MEQ IVPB 10 MEQ/100 ML INFUS.BAG IVPB SCH ×6 (13:40→21:49)
--- NOTE | 2017-01-23 15:37 | PN ---
Progress Note (short form) - Note Progress Note: 26 year old male presented with drug over dose ( he took escitaprolam, bactrim , buproprion and hydroxyzine) . He was positive for cocaine and ectasy. Patient had multiple seizure since he came . Ct head was normal on admission. Patient was transferred to ICU on January 21 and was intubated. He has not had any seizures today and on keppra and was extubated today Past Medical History of drug abuse and depression ROS, SH, Medication history reviewed in chart NKDA Neurological Examination He is awake and father is on bedside. following command, he is restrained he told me he is 25 and this is month of july no neck stiffness pupils is reactive, corneal reclex is present moving all extremity strenght is normal EEG results pending initial ct head is normal Assessment- Status epilepticus secondary to drug induced ( cocaine and Drugs Overdose), now extubated and had no seizures today Plan-- continue keprpa 1500 mg iv bid - follow up on eeg - would like to do MRI of brain once stable - continue current level of care will continue to follow with primary Thanks for consult Jasen Monte MD
--- NOTE | 2017-01-23 15:47 | PN ---
Progress Note (short form) - Note Progress Note: CC: overdose/qtc prolongation Patient extubated to non-rebreather. sleepy but awake and alert. no cp, palps , dizziness, sob. No ventricular ectopy on tele. Current Medications Acetaminophen (Ofirmev Injection -) 1,000 mg IVPB Q6H PRN PRN Reason: FEVER OR PAIN Heparin Sodium (Porcine) (Heparin -) 5,000 unit SQ BID [facility] Last Admin: 01/23/17 11:01 Dose: 5,000 unit Piperacillin Sod/Tazobactam (Sod 4.5 gm/ Dextrose) 100 mls @ 200 mls/hr IVPB Q6H [facility] Last Admin: 01/23/17 06:56 Dose: 200 mls/hr Last Titration: 01/22/17 10:05 Dose: 0 mcg/kg/min, 0 mls/hr Fentanyl 500 mcg/ Dextrose 100 mls @ 4 mls/hr IVPB TITR [facility]; 20 MCG/HR PRN Reason: Protocol Last Admin: 01/22/17 21:51 Dose: 4 mls/hr Sodium Chloride (Normal Saline -) 1,000 mls @ 100 mls/hr IV ASDIR [facility] Levetiracetam (Keppra Injection -) 1,500 mg IVPB BID [facility] Last Admin: 01/23/17 10:48 Dose: 1,500 mg Lorazepam (Ativan Injection -) 1 mg IVPUSH Q4H PRN PRN Reason: AGITATION Last Admin: 01/21/17 16:50 Dose: 1 mg Sucralfate (Carafate Oral Suspension -) 1 gm PO BID [facility] Last Admin: 01/23/17 10:31 Dose: Not Given Vital Signs - 24 hr 01/22/17 01/22/17 01/22/17 16:00 16:15 18:00 Temperature 98.8 F Pulse Rate 80 88 Respiratory 15 16 15 Rate Blood Pressure 94/62 128/85 O2 Sat by Pulse Oximetry (%) 01/22/17 01/22/17 01/22/17 18:59 20:00 20:38 Temperature Pulse Rate 82 Respiratory 14 14 Rate Blood Pressure 101/63 O2 Sat by Pulse 100 Oximetry (%) 01/22/17 01/22/17 01/23/17 21:45 22:00 00:00 Temperature 98.9 F 98.2 F Pulse Rate 14 L 85 Respiratory 14 20 14 Rate Blood Pressure 103/63 104/60 O2 Sat by Pulse Oximetry (%) 01/23/17 01/23/17 01/23/17 00:35 02:00 03:37 Temperature Pulse Rate 74 Respiratory 14 21 14 Rate Blood Pressure 93/53 O2 Sat by Pulse Oximetry (%) 01/23/17 01/23/17 01/23/17 04:00 06:00 06:47 Temperature Pulse Rate 74 68 Respiratory 14 14 14 Rate Blood Pressure 96/56 93/55 O2 Sat by Pulse Oximetry (%) 01/23/17 01/23/17 01/23/17 08:00 09:10 10:00 Temperature Pulse Rate 67 88 Respiratory 14 14 15 Rate Blood Pressure 110/82 88/54 O2 Sat by Pulse 100 100 Oximetry (%) 01/23/17 01/23/17 01/23/17 11:48 12:00 14:00 Temperature Pulse Rate 83 71 Respiratory 15 20 20 Rate Blood Pressure 94/71 99/63 O2 Sat by Pulse Oximetry (%) 01/23/17 15:08 Temperature Pulse Rate 74 Respiratory Rate Blood Pressure O2 Sat by Pulse 100 Oximetry (%) Intake & Output 01/21/17 01/22/17 01/23/17 01/24/17 07:59 07:59 07:59 07:59 Intake Total 3437 6604 Output Total 3600 1125 900 Balance -163 5479 -900 Weight 170 lb nad, calm jvd flat, neck supple bibasilar dullness, poor effort. rrr nl s1, s2 no mrg + bs soft nt nd ext without e/c/c no jaundice, diaphoresis no carotid bruits. CBC, BMP 01/23/17 05:05 01/23/17 05:05 Laboratory Tests 01/22/17 01/23/17 01/23/17 18:00 05:05 05:05 INR 1.21 H Magnesium 2.2 D Total Bilirubin 0.5 D AST 175 H ALT 52 Alkaline Phosphatase 58 Creatine Kinase 17649 H Albumin 2.6 L tele: overall sr, brief episode of sinus tach. EKG 1: nsr. lvh. incomplete rbbb. bline prolonged qtc. diffuse st-t wave ab. anterior /anterolateral twi/biphasic t waves. EKG 2: sinus tach, rbbb. prolonged qtc. non-specific st-t wave ab. t waves no longer inverted/biphasic. EKG 01/23: nsr. incomplete rbbb. borderline prolonged qtc (appears normal on manual calculation). anterior t wave inversions persist (possible juvenile t waves) 26 y.o. smoker with h/o polysubstance abuse preseted to ER after overdose of multiple medications including Escitaprolam, Bactrim, Buproprion and Hydroxyzine , ER course complicated by brief surgery and progressive prolongation of qtc. prolonged qt in setting of overdose/possible serotonin syndrome. - 01/22 qtc remains prolonged. con't. serial ekg monitoring - 01/23 clinical status improving. qtc borderline prolonged qtc (appears normal on manual calculation). repeat ekg in am. - con't tele monitoring (thus far benign). - ongoing mgm't of overdose/rhabdo per pmd/critical care team. - avoid qtc prolonging drugs: if possible try alternative to zosyn. avoid zofran, ppi's. ST-T wave changes, qrs widening - likely in response to metabolic derangements, approaching baseline with improvement in clinical status. - Mild baseline ekg abnormalities. can consider echo on wednesday or as outpatient when clinical status improved anxiety/depression - psych consulted. mgm't including med mgm't per pmd/psych.
--- NOTE | 2017-01-23 20:56 | EKG ---
Test Reason : Blood Pressure : / mmHG Vent. Rate : 083 BPM Atrial Rate : 083 BPM P-R Int : 168 ms QRS Dur : 130 ms QT Int : 440 ms P-R-T Axes : 081 048 067 degrees QTc Int : 517 ms POOR DATA QUALITY, INTERPRETATION MAY BE ADVERSELY AFFECTED NORMAL SINUS RHYTHM NON-SPECIFIC INTRA-VENTRICULAR CONDUCTION BLOCK LEFT VENTRICULAR HYPERTROPHY T WAVE ABNORMALITY, CONSIDER ANTERIOR ISCHEMIA ABNORMAL ECG WHEN COMPARED WITH ECG OF 22-JAN-2017 08:20, NO SIGNIFICANT CHANGE WAS FOUND Confirmed by PARKER HERNANDEZ, CORRIE ([id number]) on 01/23/2017 8:55:54 PM Referred By: LIDIA Confirmed By:CORRIE CANALES MD
[2017-01-23] MEDS ORDERED: PT OWN MED DRAWER 7, Y5N ONE (21:09)
[2017-01-23] MEDS: FENTANYL INJECTION 500 MCG in DEXTROSE 5%-WATER - 90 ML IVPB SCH (21:48)
--- NOTE | 2017-01-23 21:59 | EKG ---
Test Reason : Blood Pressure : / mmHG Vent. Rate : 062 BPM Atrial Rate : 062 BPM P-R Int : 170 ms QRS Dur : 118 ms QT Int : 482 ms P-R-T Axes : 061 044 059 degrees QTc Int : 489 ms NORMAL SINUS RHYTHM NON-SPECIFIC INTRA-VENTRICULAR CONDUCTION DELAY BORDERLINE PROLONGED QT T-WAVE INVERSION IN ANTERIOR LEADS ABNORMAL ECG WHEN COMPARED WITH ECG OF 22-JAN-2017 18:04, QRS DURATION HAS DECREASED QT HAS SHORTENED Confirmed by CORRIE CANALES MD ([id number]) on 01/23/2017 9:58:33 PM Referred By: Amrit WALLACE Confirmed By:CORRIE CANALES MD
[2017-01-23 23:20] LABS: HIV 1 & 2 AB NEGATIVE; HIV 1 AGp24 NEGATIVE
[2017-01-23] MEDS ORDERED: LORazepam 2 MG/ML SDV VIAL IVPUSH PRN (23:48)
[2017-01-24] MEDS ORDERED: PT OWN MED DRAWER 7, Y5N ONE ×2 (00:18→10:23)
[2017-01-24 05:55] LABS: BASO % 0.9 % (0-2.0); EOS % 1.4 % (0-4.5); MCH 28.8 pg (25.7-33.7); MCHC 34.2 g/dl (32.0-35.9); MEAN CELL VOLUME 84.1 fl (80-96); MEAN PLT VOLUME 10.2 fl (7.5-11.1); PLATELET COUNT 154 K/MM3 (134-434); RDW 12.7 % (11.9-15.9); WHITE BLOOD COUNT 11.8 K/mm3 (4.0-10.0)
[2017-01-24] MEDS: PIPERACILLIN/TAZOB 4.5 GM 4.5 GM in DEXTROSE 5%-WATER - 100 ML IVPB SCH ×4 (06:00→12:35)
[2017-01-24 06:43] LABS: ALBUMIN 2.6 g/dl (3.4-5.0); ALK PHOS 73 U/L (45-117); ANION GAP 10 (8-16); BILIRUBIN,TOTAL 0.4 mg/dL (0.2-1.0); CALCIUM 7.4 mg/dL (8.5-10.1); CO2 26 mmol/L (21-32); CREATININE 0.9 mg/dL (0.7-1.3); GLUCOSE,RANDOM 80 mg/dL (74-106); MAGNESIUM 1.6 mg/dL (1.8-2.4); PHOSPHOROUS 2.9 mg/dL (2.5-4.9); SGOT/AST 278 U/L (15-37); SGPT/ALT 96 U/L (12-78); TOT PROT 4.8 g/dl (6.4-8.2)
--- NOTE | 2017-01-24 09:16 | PN ---
Progress Note, Physician Chief Complaint: abnormal ECG History of Present Illness: denies cp, palpitations, sob, syncope - Current Medication List Current Medications: Active Medications Acetaminophen (Ofirmev Injection -) 1,000 mg IVPB Q6H PRN PRN Reason: FEVER OR PAIN Heparin Sodium (Porcine) (Heparin -) 5,000 unit SQ BID [facility] Last Admin: 01/23/17 21:46 Dose: 5,000 unit Piperacillin Sod/Tazobactam (Sod 4.5 gm/ Dextrose) 100 mls @ 200 mls/hr IVPB Q6H [facility] Last Admin: 01/24/17 06:13 Dose: 200 mls/hr Fentanyl 500 mcg/ Dextrose 100 mls @ 4 mls/hr IVPB TITR [facility]; 20 MCG/HR PRN Reason: Protocol Last Admin: 01/23/17 21:48 Dose: Not Given Sodium Chloride (Normal Saline -) 1,000 mls @ 100 mls/hr IV ASDIR [facility] Last Admin: 01/23/17 13:00 Dose: 100 mls/hr Levetiracetam (Keppra Injection -) 1,500 mg IVPB BID [facility] Last Admin: 01/23/17 21:47 Dose: 1,500 mg Lorazepam (Ativan Injection -) 1 mg IVPUSH Q2H PRN PRN Reason: AGITATION Sucralfate (Carafate Oral Suspension -) 1 gm PO BID [facility] Last Admin: 01/23/17 21:49 Dose: 1 gm - Objective Vital Signs: Vital Signs Temperature 98.7 F 01/24/17 08:00 Pulse Rate 74 01/24/17 09:13 Respiratory Rate 20 01/24/17 08:00 Blood Pressure 136/81 01/24/17 08:00 O2 Sat by Pulse Oximetry (%) 95 01/24/17 09:13 Constitutional: Yes: Well Nourished, No Distress, Calm Cardiovascular: Yes: Regular Rate and Rhythm, S1, S2. No: Gallop, Murmur Respiratory: Yes: Regular, CTA Bilaterally. No: Accessory Muscle Use, Rales, Wheezes Extremities: No: Cold Edema: No Neurological: Yes: Alert. No: Seizure Psychiatric: No: Agitated Labs: CBC, BMP 01/24/17 05:00 01/24/17 05:00 INR, PTT INR 1.21 (0.82-1.09) H 01/23/17 05:05 - ....Imaging EKG: Other (tele: NSR, no arrhythmias) Assessment/Plan EKG 1: nsr. lvh. incomplete rbbb. bline prolonged qtc. diffuse st-t wave ab. anterior /anterolateral twi/biphasic t waves. EKG 2: sinus tach, rbbb. prolonged qtc. non-specific st-t wave ab. t waves no longer inverted/biphasic. EKG 01/23: nsr. incomplete rbbb. borderline prolonged qtc (appears normal on manual calculation). anterior t wave inversions persist (possible juvenile t waves) 26 y.o. smoker with h/o polysubstance abuse preseted to ER after overdose of multiple medications including Escitaprolam, Bactrim, Buproprion and Hydroxyzine , ER course complicated by brief surgery and progressive prolongation of qtc. prolonged qt in setting of multi-drug overdose (including SSRI), possible serotonin syndrome. - 01/22 qtc remains prolonged. con't. serial ekg monitoring - 01/23 clinical status improving. qtc borderline prolonged qtc (appears normal on manual calculation). repeat ekg in am. - con't tele monitoring (thus far benign). - ongoing mgm't of overdose/rhabdo per pmd/critical care team. - avoid qtc prolonging drugs: if possible try alternative to zosyn. avoid zofran, ppi's. ST-T wave changes, qrs widening - likely in response to metabolic derangements/drug overdose - serial ecg's approaching baseline with improvement in clinical status. - Mild baseline ekg abnormalities. can consider echo on wednesday or as outpatient when clinical status improved anxiety/depression - psych consulted. mgm't including med mgm't per pmd/psych. elev cpk, ? serotonin syndrome vs sec to seizures: -cpk claus 8K to 22K on 01/22 -rpt level ordered transaminitis: -AST/LT rising -? hypoperfusion insult -? med s.e.--per crit care d[facility]
[2017-01-24] MEDS: levETIRAcetam 500 MG/5 ML INJECTION VIAL IVPB SCH ×2 (09:45→21:55)
[2017-01-24] MEDS: HEPARIN NA (PORCINE) 5,000 UNITS/ML 1ML VIAL SQ SCH (09:47)
--- NOTE | 2017-01-24 10:09 | PN ---
Progress Note (short form) - Note Progress Note: 26 year old male presented with drug over dose ( he took escitaprolam, bactrim , buproprion and hydroxyzine) . He was positive for cocaine and ectasy. Patient had multiple seizure since he came . Ct head was normal on admission. Patient was transferred to ICU on January 21 and was intubated. He was extubated on january 23. No Seizure for last two days. Past Medical History of drug abuse and depression Neurological Examination He is awake and follows command, no neck stiffness pupils is reactive, corneal reflex is present moving all extremity, strenght is normal EEG results pending initial ct head was normal Assessment- Status epilepticus secondary to drug induced ( cocaine and Drugs Overdose), now extubated and had no seizures x48 hours Plan-- continue keprpa 1500 mg iv bid - follow up on eeg - would like to do MRI of brain once stable - continue current level of care will continue to follow with primary Thanks for consult Jasen Monte MD
--- NOTE | 2017-01-24 11:14 | PN ---
Progress Note (short form) - Note Progress Note: PULMONARY/CCM Pt seen and examined in the ICU. Extubated yesterday without incident. Denies shortness of breath, chest pain or muscle cramps. Last Vital Signs Temp Pulse Resp BP Pulse Ox 98.7 F 74 20 136/81 95 01/24/17 08:00 01/24/17 09:13 01/24/17 08:00 01/24/17 08:00 01/24/17 09:13 Intake & Output 01/21/17 01/22/17 01/23/17 01/24/17 23:59 23:59 23:59 23:59 Intake Total 1802 4908 6231 100 Output Total 2900 1700 1825 250 Balance -1098 3208 4406 -150 Weight 170 lb Gen: awake, alert Heart: RRR Lung: decreased breath sounds at the bases Abd: soft, nontender Ext: no edema CBC, BMP 01/24/17 05:00 01/24/17 05:00 Active Medications Acetaminophen (Ofirmev Injection -) 1,000 mg IVPB Q6H PRN PRN Reason: FEVER OR PAIN Heparin Sodium (Porcine) (Heparin -) 5,000 unit SQ BID [facility] Last Admin: 01/24/17 09:47 Dose: 5,000 unit Piperacillin Sod/Tazobactam (Sod 4.5 gm/ Dextrose) 100 mls @ 200 mls/hr IVPB Q6H [facility] Last Admin: 01/24/17 06:13 Dose: 200 mls/hr Fentanyl 500 mcg/ Dextrose 100 mls @ 4 mls/hr IVPB TITR [facility]; 20 MCG/HR PRN Reason: Protocol Last Admin: 01/23/17 21:48 Dose: Not Given Sodium Chloride (Normal Saline -) 1,000 mls @ 100 mls/hr IV ASDIR [facility] Last Admin: 01/23/17 13:00 Dose: 100 mls/hr Levetiracetam (Keppra Injection -) 1,500 mg IVPB BID [facility] Last Admin: 01/24/17 09:45 Dose: 1,500 mg Lorazepam (Ativan Injection -) 1 mg IVPUSH Q2H PRN PRN Reason: AGITATION Sucralfate (Carafate Oral Suspension -) 1 gm PO BID [facility] Last Admin: 01/23/17 21:49 Dose: 1 gm A/P Drug Overdose Suspect Serotonin Syndrome Polysubstance Abuse Metabolic Acidosis improvnig Rhabdomyolysis Elevated LFTs likely from above Acute Kidney Injury improving - antiepileptics per neurology - continue IVF - trend CPK, LFTs - replete lytes - empiric antibiotics - PO as tolerated - DVT/GI prophylaxis - OOB to chair - can monitor on floor critical care time spent in reviewing chart, evaluating patient and formulating plan 35 min
[2017-01-24] MEDS ORDERED: MAGNESIUM SULF 50% (8.12 MEQ/2 ML-1 GM VIAL) IVPB ONE (11:15)
[2017-01-24] MEDS: SUCRALFATE 1 GM/10 ML UNIT DOSE CUPS PO SCH ×2 (11:16→21:55)
[2017-01-24] MEDS: SODIUM CHLORIDE 1,000 ML IV SCH ×2 (12:51→15:39)
[2017-01-24] MEDS ORDERED: ACETAMINOPHEN 1000 MG/100 ML VIAL (NON FORMULARY) IVPB PRN (15:16)
[2017-01-24] MEDS ORDERED: SODIUM CHLORIDE 1,000 ML IV SCH (15:16)
[2017-01-24] MEDS: PROPOFOL 1,000,000 MCG/100 ML VIAL IVPB SCH (15:21)
[2017-01-24] MEDS: DEXTROSE 5%-WATER - 1,000 ML with SODIUM BICARBONATE 8.4% - 150 MEQ IV SCH (15:26)
--- NOTE | 2017-01-24 15:32 | PN ---
Progress Note, Physician History of Present Illness: stable - Current Medication List Current Medications: Active Medications Acetaminophen (Ofirmev Injection -) 1,000 mg IVPB Q6H PRN PRN Reason: FEVER OR PAIN Heparin Sodium (Porcine) (Heparin -) 5,000 unit SQ BID [facility] Piperacillin Sod/Tazobactam (Sod 4.5 gm/ Dextrose) 100 mls @ 200 mls/hr IVPB Q6H [facility] Sodium Chloride (Normal Saline -) 1,000 mls @ 100 mls/hr IV ASDIR [facility] Levetiracetam (Keppra Injection -) 1,500 mg IVPB BID [facility] Sucralfate (Carafate Oral Suspension -) 1 gm PO BID [facility] - Objective Vital Signs: Vital Signs Temperature 98.0 F 01/24/17 14:00 Pulse Rate 76 01/24/17 14:00 Respiratory Rate 20 01/24/17 14:00 Blood Pressure 124/85 01/24/17 14:00 O2 Sat by Pulse Oximetry (%) 95 01/24/17 09:13 Constitutional: Yes: No Distress HENT: Yes: Atraumatic Neck: Yes: Supple Cardiovascular: Yes: Regular Rate and Rhythm Respiratory: Yes: CTA Bilaterally Gastrointestinal: Yes: Normal Bowel Sounds Extremities: Yes: WNL Neurological: Yes: Alert, Oriented Labs: CBC, BMP 01/24/17 05:00 01/24/17 05:00 INR, PTT INR 1.21 (0.82-1.09) H 01/23/17 05:05 Problem List - Problems (1) Overdose Assessment/Plan: stable Code(s): T50.901A - POISONING BY UNSP DRUG/MEDS/BIOL SUBST, ACCIDENTAL, INIT Qualifiers: Encounter type: initial encounter Injury intent: undetermined intent Qualified Code(s): T50.904A - Poisoning by unspecified drugs, medicaments and biological substances, undetermined, initial encounter (2) Seizure Assessment/Plan: on keppra forr eeg Code(s): R56.9 - UNSPECIFIED CONVULSIONS (3) Suicidal deliberate poisoning Assessment/Plan: will get psych once stable Code(s): T65.92XA - TOXIC EFFECT OF UNSP SUBSTANCE, INTENTIONAL SELF-HARM, INIT Qualifiers: Encounter type: initial encounter Qualified Code(s): T65.92XA - Toxic effect of unspecified substance, intentional self-harm, initial encounter (4) Aspiration into airway Assessment/Plan: on abx Code(s): T17.908A - UNSP FB IN RESP TRACT, PART UNSP CAUSING OTH INJURY, INIT Assessment/Plan DC PLANNING
[2017-01-24] MEDS ORDERED: PIPERACILLIN/TAZOB 4.5 GM 4.5 GM in DEXTROSE 5%-WATER - 100 ML IVPB SCH (18:00)
[2017-01-24] MEDS ORDERED: HEPARIN NA (PORCINE) 5,000 UNITS/ML 1ML VIAL SQ SCH (22:00)
[2017-01-25 07:27] LABS: BASO % 0.7 % (0-2.0); EOS % 2.5 % (0-4.5); MCHC 33.8 g/dl (32.0-35.9); MEAN PLT VOLUME 10.3 fl (7.5-11.1); NEUT % 67.7 % (42.8-82.8); PLATELET COUNT 154 K/MM3 (134-434); RDW 12.6 % (11.9-15.9); WHITE BLOOD COUNT 11.1 K/mm3 (4.0-10.0)
--- NOTE | 2017-01-25 08:54 | PN ---
Progress Note (short form) - Note Progress Note: 26 year old male presented with drug over dose ( he took escitaprolam, bactrim , buproprion and hydroxyzine) . He was positive for cocaine and ectasy. Patient had multiple seizure since he came . Ct head was normal on admission. Patient was transferred to ICU on January 21 and was intubated. He was extubated on january 23. No seizure since January 23 Past Medical History of drug abuse and depression Neurological Examination He is awake and follows command, no neck stiffness pupils is reactive, corneal reflex is present moving all extremity, strenght is normal EEG results pending initial ct head was normal Assessment- Status epilepticus secondary to drug induced ( cocaine and Drugs Overdose), no seizure since January 23. Plan-- continue keprpa - follow up on eeg - MRI of brain once stable - continue current level of care will continue to follow with primary Thanks for consult Jasen Monte MD
[2017-01-25 09:08] LABS: ALBUMIN 2.8 g/dl (3.4-5.0); ALK PHOS 77 U/L (45-117); ANION GAP 11 (8-16); BILIRUBIN,TOTAL 0.5 mg/dL (0.2-1.0); CALCIUM 8.2 mg/dL (8.5-10.1); CO2 25 mmol/L (21-32); CREATININE 0.7 mg/dL (0.7-1.3); GLUCOSE,RANDOM 81 mg/dL (74-106); MAGNESIUM 1.4 mg/dL (1.8-2.4); SGOT/AST 242 U/L (15-37); SGPT/ALT 128 U/L (12-78); TOT PROT 5.3 g/dl (6.4-8.2)
[2017-01-25 09:16] LABS: CPK 10031 IU/L (39-308)
[2017-01-25] MEDS: levETIRAcetam 500 MG/5 ML INJECTION VIAL IVPB SCH ×2 (10:37→22:56)
--- NOTE | 2017-01-25 10:37 | PN ---
Progress Note (short form) - Note Progress Note: PULMONARY Denies shortness of breath, chest pain or muscle cramps. +cough with green sputum. Last Vital Signs Temp Pulse Resp BP Pulse Ox 98 F 61 20 118/68 95 01/25/17 06:00 01/25/17 06:00 01/25/17 06:00 01/25/17 06:00 01/24/17 09:13 Gen: NAD at rest Heart: RRR Lung: decreased breath sounds at the bases Abd: soft, nontender Ext: no edema CBC, BMP 01/25/17 06:30 01/25/17 06:30 Laboratory Tests 01/25/17 06:30 Creatine Kinase 61237 H Active Medications Acetaminophen (Ofirmev Injection -) 1,000 mg IVPB Q6H PRN PRN Reason: FEVER OR PAIN Levetiracetam (Keppra Injection -) 1,500 mg IVPB BID [facility] Last Admin: 01/24/17 21:55 Dose: 1,500 mg Sucralfate (Carafate Oral Suspension -) 1 gm PO BID [facility] Last Admin: 01/24/17 21:55 Dose: 1 gm A/P s/p Acute Respiratory Failure Drug Overdose Suspect Serotonin Syndrome Polysubstance Abuse Metabolic Acidosis improvnig Rhabdomyolysis Elevated LFTs likely from above Acute Kidney Injury improving - antiepileptics per neurology - would continue [place]F [place] CPK 50216 - trend CPK, LFTs - replete lytes - would complete 7 days total empiric antibiotics given green sputum and vomitus in lung during intubation - PO as tolerated - DVT/GI prophylaxis - OOB to chair, ambulate
[2017-01-25] MEDS: SUCRALFATE 1 GM/10 ML UNIT DOSE CUPS PO SCH ×2 (10:38→22:56)
[2017-01-25] MEDS ORDERED: MAGNESIUM SULF 50% (8.12 MEQ/2 ML-1 GM VIAL) IVPB ONE (10:42)
[2017-01-25] MEDS ORDERED: MAGNESIUM OXIDE 400 MG TABLET (FP) PO ONE (10:42)
[2017-01-25] MEDS ORDERED: POTASSIUM CHLORIDE TABS 20 MEQ TABLET.ER (FP) PO ONE (12:30)
[2017-01-25] MEDS: AMOX TR/POT CLAV 500MG/125MG TABLETS (FP) PO SCH ×2 (12:36→17:47)
[2017-01-25] MEDS: SODIUM CHLORIDE 1,000 ML IV SCH ×2 (12:36→14:50)
--- NOTE | 2017-01-25 19:38 | CON.PSY ---
Psychiatry Consult Chief Complaint: Asked to see this patient a 26 year old male for suicidal attempt History of Present Problem: Patient medical records were reviewed Labs reviewed Family gave collateral hx Patient was seen and history obtained. Patient states that he has been using illict substances since he was 14 years old 'overseas'. He first used marijuana and now his drug of choice is cocaine.He does not remember what happened and when he took the overdose of mediations. He does remember how he was feeling very depressed and hopeless from lately an increased in psychosocial issues. In August of this year, he became from his . He has two young children. Patient has a hx of Depression Anxiety and is followed by Dr. Magdaleno, an addiction psychiatrist in the [place]. He denies suicidal ideation/homicidal ideation at this time, He has no intent or plan Symptoms: reports: Depressed Mood - Current Medications Current Medications: Active Medications Acetaminophen (Ofirmev Injection -) 1,000 mg IVPB Q6H PRN PRN Reason: FEVER OR PAIN Amoxicillin/Clavulanate Potassium (Augmentin - 500mg Tablet) 1 tab PO BID@0800, 1730 [facility] Stop: 01/29/17 12:14 Last Admin: 01/25/17 17:47 Dose: 1 tab Sodium Chloride (Normal Saline -) 1,000 mls @ 125 mls/hr IV ASDIR [facility] Last Admin: 01/25/17 14:50 Dose: 125 mls/hr Levetiracetam (Keppra Injection -) 1,500 mg IVPB BID [facility] Last Admin: 01/25/17 10:37 Dose: 1,500 mg Sucralfate (Carafate Oral Suspension -) 1 gm PO BID [facility] Last Admin: 01/25/17 10:38 Dose: 1 gm - Allergies Allergies: Allergies Allergy/AdvReac Type Severity Reaction Status Date / Time No Known Allergies Allergy Verified 12/19/16 19:36 - Current Living Status Usual Living Arrangement: With Parent - Current Mental Status Evaluation Appearance: Other (clean casual appro for the setting.) Attitude: Cooperative - Affect Affect: Constrictive Appropriateness: Appropriate to Content - Mood Mood: Depressed - Speech/Language Expressive: Coherent - Psychomotor Activity Psychomotor Activity: Normal - Thought Content Hallucinations: Absent Delusions: Absent - Self Perception Self Perception: No Impairment - Cognition Attention: Alert Orientation: Time, Person Memory, Short Term: 2/3 Memory, Remote with Promptin/3 - Concentration Simple Calculations Intact: Yes - Abstraction Proverb Interpretation: Intact Judgement: Minimally Impaired - Insight Insight: Impaired - Suicidal Ideation Suicidal Ideation: No - Homicidal Ideation Homicidal Ideation: No Assessment/Plan Patient has a long hx of drug use since at the age of 14 He has no hx of psychiatric hospitalizations No hx of suicidal attempt until now. He is not suicidal at this time. Rec Refer back to his psychiatrist upon discharge Spoke to patient about rehab - 28 days H
--- NOTE | 2017-01-25 21:32 | PN ---
Progress Note, Physician History of Present Illness: stable - Current Medication List Current Medications: Active Medications Acetaminophen (Ofirmev Injection -) 1,000 mg IVPB Q6H PRN PRN Reason: FEVER OR PAIN Amoxicillin/Clavulanate Potassium (Augmentin - 500mg Tablet) 1 tab PO BID@0800, 1730 [facility] Stop: 01/29/17 12:14 Last Admin: 01/25/17 17:47 Dose: 1 tab Sodium Chloride (Normal Saline -) 1,000 mls @ 125 mls/hr IV ASDIR [facility] Last Admin: 01/25/17 14:50 Dose: 125 mls/hr Levetiracetam (Keppra Injection -) 1,500 mg IVPB BID [facility] Last Admin: 01/25/17 10:37 Dose: 1,500 mg Sucralfate (Carafate Oral Suspension -) 1 gm PO BID [facility] Last Admin: 01/25/17 10:38 Dose: 1 gm - Objective Vital Signs: Vital Signs Temperature 98.3 F 01/25/17 16:15 Pulse Rate 66 01/25/17 16:15 Respiratory Rate 20 01/25/17 16:15 Blood Pressure 116/68 01/25/17 16:15 O2 Sat by Pulse Oximetry (%) 96 01/25/17 09:00 Constitutional: Yes: No Distress HENT: Yes: Atraumatic Neck: Yes: Supple Cardiovascular: Yes: Regular Rate and Rhythm Respiratory: Yes: CTA Bilaterally Gastrointestinal: Yes: Normal Bowel Sounds Extremities: Yes: WNL Neurological: Yes: Alert, Oriented Labs: CBC, BMP 01/25/17 06:30 01/25/17 06:30 INR, PTT INR 1.21 (0.82-1.09) H 01/23/17 05:05 Problem List - Problems (1) Overdose Assessment/Plan: stable Code(s): T50.901A - POISONING BY UNSP DRUG/MEDS/BIOL SUBST, ACCIDENTAL, INIT Qualifiers: Encounter type: initial encounter Injury intent: undetermined intent Qualified Code(s): T50.904A - Poisoning by unspecified drugs, medicaments and biological substances, undetermined, initial encounter (2) Seizure Assessment/Plan: on keppra Code(s): R56.9 - UNSPECIFIED CONVULSIONS (3) Suicidal deliberate poisoning Assessment/Plan: psych eval noted pt not suicidal at this point Code(s): T65.92XA - TOXIC EFFECT OF UNSP SUBSTANCE, INTENTIONAL SELF-HARM, INIT Qualifiers: Encounter type: initial encounter Qualified Code(s): T65.92XA - Toxic effect of unspecified substance, intentional self-harm, initial encounter (4) Aspiration into airway Assessment/Plan: on abx Code(s): T17.908A - UNSP FB IN RESP TRACT, PART UNSP CAUSING OTH INJURY, INIT Assessment/Plan NEED TO KNOW IF NEURO WANTS PO REED PT STABLE TO BE DC family to d/w psych dc options..inpatient vs out pt
[2017-01-26 08:17] LABS: BASO % 0.8 % (0-2.0); EOS % 3.3 % (0-4.5); MCH 27.8 pg (25.7-33.7); MCHC 33.5 g/dl (32.0-35.9); MEAN CELL VOLUME 83.2 fl (80-96); MEAN PLT VOLUME 9.9 fl (7.5-11.1); NEUT % 61.7 % (42.8-82.8); PLATELET COUNT 196 K/MM3 (134-434); RDW 12.6 % (11.9-15.9)
[2017-01-26] MEDS: AMOX TR/POT CLAV 500MG/125MG TABLETS (FP) PO SCH ×2 (08:26→16:56)
[2017-01-26 08:49] LABS: ALBUMIN 2.9 g/dl (3.4-5.0); ANION GAP 7 (8-16); CO2 26 mmol/L (21-32); CREATININE 0.6 mg/dL (0.7-1.3); GLUCOSE,RANDOM 83 mg/dL (74-106); MAGNESIUM 1.8 mg/dL (1.8-2.4); PHOSPHOROUS 3.8 mg/dL (2.5-4.9); SGOT/AST 183 U/L (15-37); SGPT/ALT 155 U/L (12-78)
[2017-01-26 09:03] LABS: ALK PHOS 79 U/L (45-117); BILIRUBIN,TOTAL 0.5 mg/dL (0.2-1.0); TOT PROT 5.6 g/dl (6.4-8.2)
[2017-01-26 09:05] LABS: CPK 4401 IU/L (39-308)
[2017-01-26] MEDS ORDERED: POTASSIUM CHLORIDE TABS 20 MEQ TABLET.ER (FP) PO ONE (10:31)
--- NOTE | 2017-01-26 10:32 | CONSULT ---
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 has been in court mandated treatment at [facility]. sMOKES 1ppD cigarrettes otherwise well until admitted with rhabdomyolysis and BRANDON. as per psychiatrist, He does remember how he was feeling very depressed and hopeless from lately an increased in psychosocial issues. In August of this year, he became from his . He has two young children. Patient has a hx of Depression Anxiety and is followed by Dr. Magdaleno, an addiction psychiatrist in the [place]. He denies suicidal ideation/homicidal ideation at this time, He has no intent or plan - History Source History Provided By: Patient, Medical Record, Caregiver Limitations to Obtaining History: No Limitations - Alcohol/Substance Use Hx Alcohol Use: No Hx Substance Use: Yes Hx Substance Use Treatment: Yes - Current Drug/Alcohol Use Cocaine Route: Inhalation Frequency: 3-6 times per week Amount used: $50 Age of first use: 21 Date of Last Use: 01/19/17 Ectasy Route: Inhalation Frequency: 3-6 times per week Amount used: $50 Age of first use: 21 Date of Last Use: 01/19/17 - Past Medical History Psych: Yes: Depression - Significant Medical Findings: 26 yo m with h/o polysubstances use from young age, recently with increased cocaine and mdma use and depression overdosed resulting in hospital admission from rhabdomyloisis with brandon. Making good recovery. Assessment Plan - Diagnosis (1) Cocaine dependence Status: Acute (2) BRANDON (acute kidney injury) Status: Acute (3) Overdose Status: Acute Qualifiers: Encounter type: initial encounter Injury intent: undetermined intent Qualified Code(s): T50.904A - Poisoning by unspecified drugs, medicaments and biological substances, undetermined, initial encounter (4) Methylenedioxymethamphetamine (MDMA) dependence with current use Status: Acute - Plan Plan: 26 yo m with h/o polysubstance use since age 14 , primary crugs of use aat this time are cocaine and MDMA, does nto require detoxification, attending [facility] (court mandated) recent overdose with resulting BRNADON from rhabdomylosis, agreeing to attend to inpatient 28 day rehab, family would like program outside of area but he is welcome to attend [facility] if his insurance covers treatment and bed is available. Kingsley Katz MD [phone] - Medication Detox Regimen/Protocol: Not Applicable
[2017-01-26] MEDS ORDERED: PT OWN MED DRAWER 7, Y5N ONE (11:04)
[2017-01-26] MEDS: levETIRAcetam 500 MG/5 ML INJECTION VIAL IVPB SCH (11:16)
--- NOTE | 2017-01-26 11:16 | PN ---
Progress Note (short form) - Note Progress Note: PULMONARY Denies shortness of breath, chest pain or muscle cramps. +cough with green sputum. Last Vital Signs Temp Pulse Resp BP Pulse Ox 98 F 61 20 118/68 95 01/25/17 06:00 01/25/17 06:00 01/25/17 06:00 01/25/17 06:00 01/24/17 09:13 Gen: NAD at rest Heart: RRR Lung: decreased breath sounds at the bases Abd: soft, nontender Ext: no edema CBC, BMP 01/26/17 07:30 01/26/17 07:30 Hepatic Panel Total Bilirubin 0.5 mg/dL (0.2-1.0) 01/26/17 07:30 AST 183 U/L (15-37) H D 01/26/17 07:30 ALT 155 U/L (12-78) H D 01/26/17 07:30 Alkaline Phosphatase 79 U/L (45-117) 01/26/17 07:30 Albumin 2.9 g/dl (3.4-5.0) L 01/26/17 07:30 Laboratory Tests 01/26/17 07:30 Creatine Kinase 4401 H Active Medications Acetaminophen (Ofirmev Injection -) 1,000 mg IVPB Q6H PRN PRN Reason: FEVER OR PAIN Amoxicillin/Clavulanate Potassium (Augmentin - 500mg Tablet) 1 tab PO BID@0800, 1730 [facility] Stop: 01/29/17 12:14 Last Admin: 01/26/17 08:26 Dose: 1 tab Levetiracetam (Keppra Injection -) 1,500 mg IVPB BID [facility] Last Admin: 01/25/17 22:56 Dose: 1,500 mg Sucralfate (Carafate Oral Suspension -) 1 gm PO BID [facility] Last Admin: 01/25/17 22:56 Dose: 1 gm A/P s/p Acute Respiratory Failure Drug Overdose Likely Serotonin Syndrome resolved Polysubstance Abuse Metabolic Acidosis improved Rhabdomyolysis Elevated LFTs likely from above Acute Kidney Injury improved - antiepileptics per neurology - would continue IVF given elevated CPK, LFTs - trend CPK, LFTs - would complete 7 days total empiric antibiotics given green sputum and vomitus in lung during intubation - PO as tolerated - DVT/GI prophylaxis - OOB to chair, ambulate
[2017-01-26] MEDS: SUCRALFATE 1 GM/10 ML UNIT DOSE CUPS PO SCH ×2 (11:17→21:24)
[2017-01-26] MEDS ORDERED: MAGNESIUM SULF 50% (8.12 MEQ/2 ML-1 GM VIAL) IVPB ONE (11:54)
--- NOTE | 2017-01-26 11:58 | PN ---
Progress Note (short form) - Note Progress Note: Chief Complaint: abnormal ECG History of Present Illness: denies cp, palpitations, sob, syncope. s/p IVF yesterday. Current Medications Acetaminophen (Ofirmev Injection -) 1,000 mg IVPB Q6H PRN PRN Reason: FEVER OR PAIN Amoxicillin/Clavulanate Potassium (Augmentin - 500mg Tablet) 1 tab PO BID@0800, 1730 [facility] Stop: 01/29/17 12:14 Last Admin: 01/26/17 08:26 Dose: 1 tab Levetiracetam (Keppra Injection -) 1,500 mg IVPB BID [facility] Last Admin: 01/26/17 11:16 Dose: 1,500 mg Magnesium Sulfate (Magnesium Sulfate) 1 gm IVPB ONCE ONE Stop: 01/26/17 11:55 Sucralfate (Carafate Oral Suspension -) 1 gm PO BID [facility] Last Admin: 01/26/17 11:17 Dose: 1 gm - Objective Vital Signs: Vital Signs - 24 hr 01/25/17 01/26/17 01/26/17 20:00 04:00 08:00 Temperature 97.6 F 98.0 F 98.3 F Pulse Rate 81 52 L 67 Respiratory 20 20 18 Rate Blood Pressure 120/64 122/62 132/69 O2 Sat by Pulse Oximetry (%) 01/26/17 01/26/17 09:00 15:23 Temperature 98.8 F Pulse Rate 58 L Respiratory 18 Rate Blood Pressure 123/69 O2 Sat by Pulse 99 Oximetry (%) Intake & Output 01/24/17 01/25/17 01/26/17 01/27/17 07:59 07:59 07:59 07:59 Intake Total 3000 1500 3465 Output Total 1950 Balance 1050 1500 3465 Constitutional: Yes: Well Nourished, No Distress, Calm Cardiovascular: Yes: Regular Rate and Rhythm, S1, S2. No: Gallop, Murmur Respiratory: Yes: Regular, CTA Bilaterally. No: Accessory Muscle Use, Rales, Wheezes Extremities: No: Cold Edema: No Neurological: Yes: Alert. No: Seizure Psychiatric: No: Agitated Labs: CBC, BMP 01/26/17 07:30 01/26/17 07:30 Laboratory Tests 01/25/17 01/26/17 06:30 07:30 Magnesium 1.8 D Total Bilirubin 0.5 D 0.5 AST 242 H 183 H D ALT 128 H D 155 H D Alkaline Phosphatase 77 79 Creatine Kinase 82594 H 4401 H Albumin 2.9 L - ....Imaging EKG: Other (prior tele: NSR, no arrhythmias) Assessment/Plan EKG 1: nsr. lvh. incomplete rbbb. bline prolonged qtc. diffuse st-t wave ab. anterior /anterolateral twi/biphasic t waves. EKG 2: sinus tach, rbbb. prolonged qtc. non-specific st-t wave ab. t waves no longer inverted/biphasic. EKG 01/23: nsr. incomplete rbbb. borderline prolonged qtc (appears normal on manual calculation). anterior t wave inversions persist (possible juvenile t waves) EKG 01/26: normalized. 26 y.o. smoker with h/o polysubstance abuse preseted to ER after overdose of multiple medications including Escitaprolam, Bactrim, Buproprion and Hydroxyzine , ER course complicated by brief surgery and progressive prolongation of qtc. prolonged qt in setting of multi-drug overdose (including SSRI), possible serotonin syndrome. - 01/22 qtc remains prolonged. con't. serial ekg monitoring - 01/23 clinical status improving. qtc borderline prolonged qtc (appears normal on manual calculation). - 01/26 repeat ekg has normalized. - now off tele monitoring (remained benign). - ongoing mgm't of overdose/rhabdo per pmd/critical care team. - avoid qtc prolonging drugs ST-T wave changes, qrs widening - likely in response to metabolic derangements/drug overdose - serial ecg's approaching baseline with improvement in clinical status. - Mild ekg abnormalities on initial ekg. Repeat ekg today 01/26, normalized. Can defer echo. anxiety/depression - psych/detox consulted. mgm't including med mgm't per pmd/psych. elev cpk, ? serotonin syndrome vs sec to seizures: -cpk claus 8K to 22K on 01/22 -trending down. transaminitis: -AST decreasing with improving rhabdo, but ALT rising. Eval/mgm't per pmd. -? hypoperfusion insult -? med s.e.--per crit care
[2017-01-26] MEDS ORDERED: levETIRAcetam 500 MG TABLET (FP) PO SCH (13:30)
--- NOTE | 2017-01-26 14:13 | PN ---
Progress Note (short form) - Note Progress Note: 26 year old male presented with drug over dose ( he took escitaprolam, bactrim , buproprion and hydroxyzine) . He was positive for cocaine and ectasy. Patient had multiple seizure since he came . Ct head was normal on admission. Patient was transferred to ICU on January 21 and was intubated. He was extubated on january 23. No seizure since January 23 mri of brain it was unremarkabe.Family as asking as he has no memory of incident and hospitalization Past Medical History of drug abuse and depression Neurological Examination He is awake and follows command, no neck stiffness pupils is reactive, corneal reflex is present moving all extremity, strenght is normal EEG results pending initial ct head was normal mri of brain is normal Assessment- Status epilepticus secondary to drug induced ( cocaine and Drugs Overdose), no seizure since January 23. Plan-- continue keprpa , switch to oral mri o fbrain findings reviewed with patient and family continue supportive care will continue to follow with primary Thanks for consult Jasen Monte MD
--- NOTE | 2017-01-26 14:35 | EKG ---
Test Reason : Blood Pressure : / mmHG Vent. Rate : 064 BPM Atrial Rate : 064 BPM P-R Int : 134 ms QRS Dur : 100 ms QT Int : 420 ms P-R-T Axes : 028 040 048 degrees QTc Int : 433 ms NORMAL SINUS RHYTHM NORMAL ECG WHEN COMPARED WITH ECG OF 23-JAN-2017 09:52, T WAVE INVERSION NO LONGER EVIDENT IN ANTERIOR LEADS QT HAS SHORTENED Confirmed by MARK HERNANDEZ, ROSEANN ([id number]) on 01/26/2017 2:34:39 PM Referred By: CORRIE CANALES Confirmed By:ROSEANN FLORES MD
[2017-01-26] MEDS ORDERED: IBUPROFEN 400 MG TABLET (FP) PO PRN (17:39)
[2017-01-26] MEDS ORDERED: SODIUM CHLORIDE 1,000 ML IV SCH (17:45)
[2017-01-26] MEDS: levETIRAcetam 500 MG TABLET (FP) PO SCH (21:25)
--- NOTE | 2017-01-26 22:24 | PN ---
Progress Note, Physician History of Present Illness: stable - Current Medication List Current Medications: Active Medications Acetaminophen (Ofirmev Injection -) 1,000 mg IVPB Q6H PRN PRN Reason: FEVER OR PAIN Amoxicillin/Clavulanate Potassium (Augmentin - 500mg Tablet) 1 tab PO BID@0800, 1730 [facility] Stop: 01/29/17 12:14 Last Admin: 01/26/17 16:56 Dose: 1 tab Sodium Chloride (Normal Saline -) 1,000 mls @ 125 mls/hr IV ASDIR [facility] Last Admin: 01/26/17 17:44 Dose: 125 mls/hr Ibuprofen (Motrin -) 400 mg PO Q6H PRN PRN Reason: PAIN Last Admin: 01/26/17 17:44 Dose: 400 mg Levetiracetam (Keppra -) 1,500 mg PO BID [facility] Last Admin: 01/26/17 21:25 Dose: 1,500 mg Sucralfate (Carafate Oral Suspension -) 1 gm PO BID [facility] Last Admin: 01/26/17 21:24 Dose: 1 gm - Objective Vital Signs: Vital Signs Temperature 98.0 F 01/26/17 19:00 Pulse Rate 55 L 01/26/17 19:00 Respiratory Rate 18 01/26/17 21:00 Blood Pressure 113/66 01/26/17 19:00 O2 Sat by Pulse Oximetry (%) 99 01/26/17 21:00 Constitutional: Yes: No Distress HENT: Yes: Atraumatic Neck: Yes: Supple Cardiovascular: Yes: Regular Rate and Rhythm Respiratory: Yes: CTA Bilaterally Gastrointestinal: Yes: Normal Bowel Sounds Extremities: Yes: WNL Edema: No Neurological: Yes: Alert, Oriented Labs: CBC, BMP 01/26/17 07:30 01/26/17 07:30 INR, PTT INR 1.21 (0.82-1.09) H 01/23/17 05:05 Problem List - Problems (1) Overdose Assessment/Plan: stable Code(s): T50.901A - POISONING BY UNSP DRUG/MEDS/BIOL SUBST, ACCIDENTAL, INIT Qualifiers: Encounter type: initial encounter Injury intent: undetermined intent Qualified Code(s): T50.904A - Poisoning by unspecified drugs, medicaments and biological substances, undetermined, initial encounter (2) Seizure Assessment/Plan: on keppra Code(s): R56.9 - UNSPECIFIED CONVULSIONS (3) Suicidal deliberate poisoning Assessment/Plan: psych eval noted pt not suicidal at this point dc to inpt rehab Code(s): T65.92XA - TOXIC EFFECT OF UNSP SUBSTANCE, INTENTIONAL SELF-HARM, INIT Qualifiers: Encounter type: initial encounter Qualified Code(s): T65.92XA - Toxic effect of unspecified substance, intentional self-harm, initial encounter (4) Aspiration into airway Assessment/Plan: on abx Code(s): T17.908A - UNSP FB IN RESP TRACT, PART UNSP CAUSING OTH INJURY, INIT
--- NOTE | 2017-01-27 07:53 | PN ---
Progress Note (short form) - Note Progress Note: 26 year old male presented with drug over dose ( he took escitaprolam, bactrim , buproprion and hydroxyzine) . He was positive for cocaine and ectasy. Patient had multiple seizure when he came to hospital. Ct head was normal on admission. Patient was transferred to ICU on January 21 and was intubated. Later he was extubated on january 23. No seizure since January 23. Subsequent mri of brain it was unremarkabe. Past Medical History of drug abuse and depression Neurological Examination He is awake and follows command, no neck stiffness pupils is reactive, corneal reflex is present moving all extremity, strenght is normal EEG results pending initial ct head was normal mri of brain is normal Assessment- Status epilepticus secondary to drug induced ( cocaine and Drugs Overdose), no seizure since January 23. Plan-- keppra was switched to oral, mri o fbrain findings reviewed with patient and family is being planned to be dischaged today, would follow outpatinet. He may not need keppra for [facility]p. I will follow up outpatient. Thanks for consult Jasen Monte MD
[2017-01-27 08:36] LABS: ALBUMIN 3.1 g/dl (3.4-5.0); ANION GAP 9 (8-16); CALCIUM 8.5 mg/dL (8.5-10.1); CO2 26 mmol/L (21-32); GLUCOSE,RANDOM 88 mg/dL (74-106); MAGNESIUM 1.6 mg/dL (1.8-2.4)
[2017-01-27 08:40] LABS: ALK PHOS 72 U/L (45-117); BILIRUBIN,DIRECT < 0.2 mg/dL (0.0-0.2); BILIRUBIN,TOTAL 0.3 mg/dL (0.2-1.0); CREATININE 0.7 mg/dL (0.7-1.3); SGOT/AST 139 U/L (15-37); SGPT/ALT 166 U/L (12-78); TOT PROT 5.7 g/dl (6.4-8.2)
[2017-01-27] MEDS: SUCRALFATE 1 GM/10 ML UNIT DOSE CUPS PO SCH (10:24)
[2017-01-27] MEDS: AMOX TR/POT CLAV 500MG/125MG TABLETS (FP) PO SCH (10:24)
[2017-01-27] MEDS: levETIRAcetam 500 MG TABLET (FP) PO SCH (10:24)
[2017-01-27 11:53] VITALS: BP 108/56; PULSE 58; TEMP 97.9
== END 2017-01-27 12:57 | disposition other institution (70) | DRG 812 ==
LOC: JER 02:05 → JERBED 08:36 → J4W 09:39 → JICU 16:34 → J8W 01-24 15:14
PROVIDERS: ADMIT Internal Medicine; ATTEND Internal Medicine
PROC: 5A1945Z Respiratory Ventilation, 24-96 Consecutive Hours (ICD-10-PCS; principal; 2017-01-21)
PROC: 0CHY7BZ Insertion of Airway into Mouth and Throat, Via Natural or Artificial Opening (ICD-10-PCS; 2017-01-21)
PROC: HZ2ZZZZ Detoxification Services for Substance Abuse Treatment (ICD-10-PCS; 2017-01-21)
DX: T43.222A Poisoning by selective serotonin reuptake inhibitors, intentional self-harm, initial encounter (principal); J96.00 Acute respiratory failure, unspecified whether with hypoxia or hypercapnia; R56.9 Unspecified convulsions; N17.9 Acute kidney failure, unspecified; E87.2 Acidosis; M62.82 Rhabdomyolysis; T40.5X2A Poisoning by cocaine, intentional self-harm, initial encounter; T37.0X2A Poisoning by sulfonamides, intentional self-harm, initial encounter; T43.292A Poisoning by other antidepressants, intentional self-harm, initial encounter; T43.592A Poisoning by other antipsychotics and neuroleptics, intentional self-harm, initial encounter; F16.10 Hallucinogen abuse, uncomplicated; Y92.038 Other place in apartment as the place of occurrence of the external cause; F17.210 Nicotine dependence, cigarettes, uncomplicated; I45.81 Long QT syndrome; F14.23 Cocaine dependence with withdrawal; R00.0 Tachycardia, unspecified; I45.10 Unspecified right bundle-branch block; F41.9 Anxiety disorder, unspecified; R11.10 Vomiting, unspecified; F32.9 Major depressive disorder, single episode, unspecified; R94.5 Abnormal results of liver function studies
CPT/HCPCS: 31500; 36415; 36600; 70450-TC; 70551-TC; 71010-TC; 80048; 80053; 80076; 80307; 81003; 81015; 82550; 82553; 82803; 83735; 84100; 84443; 85025; 85610; 87070; 87077; 87205; 87389; 93005; 93010; 94002; 95816; 99285-25; J1644

== ENCOUNTER 2017-03-17 00:47 | Observation (INO) | payer OTHER ==
--- NOTE | 2017-03-17 00:53 | PDOC ---
History of Present Illness <Florence White - Last Filed: 03/17/17 04:44> - History of Present Illness Initial Comments: 03/17/17 01:01 26M PMHx depression, etoh abuse with cc of etoh intoxication. States that he drank too much, vomited and hit his head against the wall. Denies other injuries. No SI/HI. No other complaints. Reports that his family called 911 because they were worried about him, EMS reported BP 90s/60s on arrival. Denies other illicit drugs, medications. <Shameka Yan - Last Filed: 03/17/17 06:23> - General Chief Complaint: Blood Pressure Problem Stated Complaint: HYPOTENSIVE Time Seen by Provider: 03/17/17 00:53 Past History <Florence White - Last Filed: 03/17/17 04:44> - Past Medical History COPD: No - Suicide/Smoking/Psychosocial Hx Smoking Status: Yes Smoking History: Current every day smoker Have you smoked in the past 12 months: Yes Number of Cigarettes Smoked Daily: 20 'Breaking Loose' booklet given: 03/10/14 Hx Alcohol Use: No Drug/Substance Use Hx: Yes Substance Use Type: Cocaine, Heroin Hx Substance Use Treatment: Yes <Shameka Yan - Last Filed: 03/17/17 06:23> - Past Medical History Allergies/Adverse Reactions: Allergies Allergy/AdvReac Type Severity Reaction Status Date / Time No Known Allergies Allergy Verified 03/17/17 00:53 Home Medications: Ambulatory Orders Bupropion Xl 300 mg PO DAILY 12/20/16 Escitalopram Oxalate 10 mg PO DAILY 12/20/16 Levetiracetam [Keppra -] 1,500 mg PO BID #60 tablet 01/26/17 Review of Systems - Review of Systems Able to Perform ROS?: Yes Is the patient limited Egyptian proficient: No Constitutional: Yes: See HPI HEENTM: Yes: See HPI Respiratory: No: SOB at Rest Cardiac (ROS): No: Chest Pain ABD/GI: Yes: Vomiting. No: Nausea Neurological: No: Headache, Numbness, Paresthesia All Other Systems: Reviewed and Negative <Shameka Yan - Last Filed: 03/17/17 06:23> *Physical Exam - Vital Signs Last Vital Signs Temp Pulse Resp BP Pulse Ox 97.8 F 92 H 18 94/42 98 03/17/17 00:54 03/17/17 00:54 03/17/17 00:54 03/17/17 00:54 03/17/17 00:54 <Florence White - Last Filed: 03/17/17 04:44> - Physical Exam General Appearance: Yes: Appropriately Dressed, Alcohol on Breath. No: Apparent Distress, Disheveled HEENT: positive: EOMI, SYDNEE, Normal ENT Inspection, Normal Voice, Other (+tiny abrasion under L eyebrow) Respiratory/Chest: positive: Lungs Clear Cardiovascular: positive: Regular Rhythm, Regular Rate Gastrointestinal/Abdominal: negative: Tender Extremity: positive: Normal Range of Motion Integumentary: positive: Normal Color, Dry, Warm Neurologic: positive: Fully Oriented, Alert, Normal Mood/Affect <Shameka Yna - Last Filed: 03/17/17 06:23> ED Treatment Course - LABORATORY CBC & Chemistry Diagram: 03/17/17 01:41 03/17/17 01:41 - ADDITIONAL ORDERS Additional order review: Laboratory Results 03/17/17 03/17/17 03/17/17 01:41 01:41 01:41 Sodium 139 Potassium 3.3 L Chloride 101 Carbon Dioxide 26 Anion Gap 12 BUN 10 D Creatinine 0.9 D Creat Clearance w eGFR > 60 Random Glucose 103 Calcium 8.7 Total Bilirubin 0.4 D AST 11 L D ALT 20 D Alkaline Phosphatase 92 D Creatine Kinase Cancelled 170 Troponin I 0.07 H Total Protein 6.9 D Albumin 3.8 D Alcohol, Quantitative 03/17/17 01:41 Sodium Potassium Chloride Carbon Dioxide Anion Gap BUN Creatinine Creat Clearance w eGFR Random Glucose Calcium Total Bilirubin AST ALT Alkaline Phosphatase Creatine Kinase Troponin I Total Protein Albumin Alcohol, Quantitative 37.7 H* 03/17/17 01:41 RBC 5.97 H MCV 83.7 MCHC 33.7 RDW 13.3 MPV 10.3 Neutrophils % 81.8 D Lymphocytes % 10.2 D Monocytes % 7.7 Eosinophils % 0.0 D Basophils % 0.3 - RADIOLOGY Radiograph Interpretation: DATE OF SERVICE: 2017-03-17 01:46:49 IMAGES: 183 EXAM: CERVICAL SPINE CT W/O CONTR HISTORY: Status post fall COMPARISON: None. FINDINGS: There is no fracture, subluxation, prevertebral soft tissue swelling or significant degenerative changes. Mild apical emphysema is noted. IMPRESSION: No fracture. Yonas Sanders MD 03/17/2017 02:07 EST DATE OF SERVICE: 2017-03-17 01:50:03 IMAGES: 176 EXAM: HEAD CT WITHOUT CONTRAST HISTORY: Status post fall COMPARISON: None. FINDINGS: The ventricular system is midline and nondilated. The sulcal pattern is normal for the patient's age. There is no bleed, mass, extra-axial fluid collection or mass effect. No skull fracture or skull lesion is identified. The visualized paranasal sinuses and mastoid air cells are clear. IMPRESSION: No evidence of acute pathology. Yonas Sanders MD 03/17/2017 02:06 EST DATE OF SERVICE: 2017-03-17 04:17:39 IMAGES: 2 EXAM: CHEST PA HISTORY: Leukocytosis COMPARISON: None. FINDINGS: The cardiomediastinal silhouette is normal. The lungs are clear. The bones and soft tissues are normal. No pleural effusion. IMPRESSION: Normal chest. Yonas Sanders MD 03/17/2017 04:28 EST - Medications Given in the ED: ED Medications Discontinued Medications Generic Name Dose Route Start Last Admin Trade Name Freq PRN Reason Stop Dose Admin Diphenhydramine HCl 25 mg 03/17/17 01:39 03/17/17 02:10 Benadryl Injection - IVPUSH 03/17/17 01:40 25 mg ONCE ONE Administration Sodium Chloride 1,000 mls @ 1,000 mls/hr 03/17/17 01:26 03/17/17 01:27 Normal Saline - IV 03/17/17 02:25 1,000 mls/hr ASDIR STA Administration Famotidine 20 mg in 12 mls @ 144 mls/hr 03/17/17 01:38 03/17/17 02:10 Pepcid 20 Mg/12 Ml Push IVPB 03/17/17 01:42 144 mls/hr ONCE ONE Administration Methylprednisolone Sodium Succinate 125 mg 03/17/17 01:39 03/17/17 02:10 Solu-Medrol - IVPB 03/17/17 01:40 125 mg ONCE ONE Administration <Florence White - Last Filed: 03/17/17 04:44> - LABORATORY CBC & Chemistry Diagram: 03/17/17 01:41 03/17/17 01:41 <Shameka Yan - Last Filed: 03/17/17 06:23> Medical Decision Making - Medical Decision Making 03/17/17 01:09 Pt presenting etoh intox, minor head trauma with small abrasion over R eye. Also report of hypotension by EMS. No other complaints, has hx depression but denies SI/HI. Will CTH, observe, trend vitals, IVF. Anticipate dc when sober. 03/17/17 01:26 Pt's mother arrived and provided more hx. She reports that he was drinking and "doing drugs" at home, vomited and hit his head against the wall, passed out and "looked blue". Pt doesn't have recollection of this. She reports that he has attempted suicide in the past and she's concerned about his "drug levels" because she is afraid he tried to do it again. Pt on fluoxetine. - EKG - asa, apap levels - labs including etoh - CTH, c spine - IVF - reassess - denies SI/HI, states that he just "drank too much". Im not concerned in this moment for suicidality - he also did not express this to his mother prior to arrival 03/17/17 01:39 Pt removed shirt for EKG - noted to have diffuse erythematous rash with urticaria- appears to be allergic reaction. Pt denies new exposures to food/meds /lotions. Will give pepcid, benadryl and solumedrol. Will continue to reassess. 03/17/17 06:22 Pt resting comfortably. Allergic reaction has much improved after medications. Trop 0.07 - will require trending troponin and EKG. Discussed case with Dr. Bautista, also decided to load with keppra as pt was d/c'ed on keppra and the mother is describing a probable seizure last night. Will admit to observation- Tele under Dr. Bautista. <Shameka Yan - Last Filed: 03/17/17 06:23> *DC/Admit/Observation/Transfer - Attestations Scribe Attestion: 03/17/17 02:33 Documentation prepared by Florence White, acting as medical staff coordinator for Shameka Yan DO <Florence White - Last Filed: 03/17/17 04:44> - Discharge Dispostion Admit: Yes <Shameka Yan - Last Filed: 03/17/17 06:23> Diagnosis at time of Disposition: Seizure, Allergic reaction
[2017-03-17 01:05] VITALS: BMI 23.0
[2017-03-17] MEDS ORDERED: SODIUM CHLORIDE 1,000 ML IV STA (01:26)
[2017-03-17] MEDS ORDERED: FAMOTIDINE IV 20 MG/12 ML VIAL IVPB ONE (01:38)
[2017-03-17] MEDS ORDERED: methylPREDNISolone NA SUCC 125 MG/2 ML VIAL IVPB ONE (01:39)
[2017-03-17 01:48] LABS: BASO % 0.3 % (0-2.0); HEMOGLOBIN 16.8 GM/dL (11.7-16.9); LYMPH % 10.2 % (8-40); MCH 28.2 pg (25.7-33.7); MCHC 33.7 g/dl (32.0-35.9); MEAN CELL VOLUME 83.7 fl (80-96); MEAN PLT VOLUME 10.3 fl (7.5-11.1); MONO % 7.7 % (3.8-10.2); NEUT % 81.8 % (42.8-82.8); PLATELET COUNT 177 K/MM3 (134-434); RBC 5.97 M/mm3 (4.00-5.60); RDW 13.3 % (11.9-15.9); WHITE BLOOD COUNT 19.2 K/mm3 (4.0-10.0)
[2017-03-17] MEDS ORDERED: FAMOTIDINE 20 MG/50 ML IVPB 20 MG/50 ML MG IVPB ONE (02:02)
[2017-03-17] MEDS ORDERED: methylPREDNISolone NA SUCC 125 MG/2 ML VIAL ONE (02:02)
[2017-03-17 02:12] LABS: ALCOHOL 37.7 mg/dl (0-5)
[2017-03-17 02:17] LABS: ALBUMIN 3.8 g/dl (3.4-5.0); ANION GAP 12 (8-16); BILIRUBIN,TOTAL 0.4 mg/dL (0.2-1.0); BLOOD UREA NITROGEN 10 mg/dL (7-18); CALCIUM 8.7 mg/dL (8.5-10.1); CHLORIDE 101 mmol/L (98-107); CO2 26 mmol/L (21-32); CREATININE 0.9 mg/dL (0.7-1.3); GLUCOSE,RANDOM 103 mg/dL (74-106); POTASSIUM 3.3 mmol/L (3.5-5.1); SGOT/AST 11 U/L (15-37); SGPT/ALT 20 U/L (12-78); SODIUM 139 mmol/L (136-145); TOT PROT 6.9 g/dl (6.4-8.2)
[2017-03-17 02:18] LABS: ALK PHOS 92 U/L (45-117)
[2017-03-17 03:37] VITALS: PULSE 78; TEMP 98.2
[2017-03-17] MEDS ORDERED: POTASSIUM CHLORIDE TABS 20 MEQ TABLET.ER (FP) PO ONE ×2 (04:04→04:14)
[2017-03-17] MEDS ORDERED: ASPIRIN 81 MG CHEWABLE TABLETS PO ONE (04:04)
[2017-03-17] MEDS ORDERED: ASPIRIN 81 MG CHEWABLE TABLETS ONE (04:14)
[2017-03-17 04:59] LABS: ACETAMINOPHEN < 2.000 ug/ml (10.0-30.0); SALICYLATE < 4.0 mg/dl (0.0-30.0)
[2017-03-17] MEDS ORDERED: levETIRAcetam 500 MG/5 ML INJECTION VIAL IVPB ONE (06:16)
[2017-03-17] MEDS ORDERED: THIAMINE HCL 100 MG TABLET (FP) PO ONE (08:05)
[2017-03-17] MEDS ORDERED: MULTIVITAMINS (DAILY MVI) TABLET (FP) PO ONE (08:05)
[2017-03-17] MEDS ORDERED: FOLIC ACID 1 MG TABLET (FP) PO ONE (08:05)
--- NOTE | 2017-03-17 08:11 | EKG ---
Test Reason : Blood Pressure : / mmHG Vent. Rate : 086 BPM Atrial Rate : 086 BPM P-R Int : 170 ms QRS Dur : 106 ms QT Int : 380 ms P-R-T Axes : 060 055 063 degrees QTc Int : 454 ms POOR DATA QUALITY, INTERPRETATION MAY BE ADVERSELY AFFECTED NORMAL SINUS RHYTHM NORMAL ECG WHEN COMPARED WITH ECG OF 26-JAN-2017 13:14, NO SIGNIFICANT CHANGE WAS FOUND Confirmed by MARK HERNANDEZ, ROSAENN ([id number]) on 03/17/2017 8:10:56 AM Referred By: Confirmed By:ROSEANN FLORES MD
--- NOTE | 2017-03-17 08:20 | HP ---
CHIEF COMPLAINT: "i drank too much" HISTORY OF PRESENT ILLNESS: 26 y/o M w/PMH of depression, alcohol abuse, seizures presents to the ER after being found on the floor outside his bathroom by his mother. Pt states he was drinking alcohol but would not tell me how much he drank or how often he drinks. He remembers taking standing over the sink in his bathroom and the next thing he remembers is being on the floor in front of his bathroom. He hit his head but does not know where or remember where during the episode of LOC. He is non-complaint with his seizure meds and says he takes them on and off. He denies any suicidal ideation. He had an episode of vomiting yesterday but denies feeling nauseous now. He denies F/C, CP, SOB, abd pain, LE edema. He states he feels well right now and would like to go home. Rash that was found in ER is now improved. Pt denies any new lotions, clothing, changes in diet, new foods. ER course was notable for: (1) ASA 162 mg, NS 1 L, PO KCl, IV benadryl, IV solumedrol (2) Head CT, C-Spine CT, CXR (3) EKG Recent Travel: denies PAST MEDICAL HISTORY: depression, alcohol abuse, seizures PAST SURGICAL HISTORY: denies Social History: Smokinppd for 10 years Alcohol: drinks alcohol but did not admit how much and how often Drugs: denies Family History: denies any FH Allergies No Known Allergies Allergy (Verified 03/17/17 00:53) HOME MEDICATIONS: Home Medications Medication Instructions Recorded Bupropion Xl 300 mg PO DAILY 12/20/16 Escitalopram Oxalate 10 mg PO DAILY 12/20/16 Levetiracetam [Keppra -] 1,500 mg PO BID #60 tablet 01/26/17 REVIEW OF SYSTEMS CONSTITUTIONAL: Absent: fever, chills CARDIOVASCULAR: Absent: chest pain, peripheral edema RESPIRATORY: Absent: cough, shortness of breath GASTROINTESTINAL: +vomiting Absent: abdominal pain, diarrhea, constipation GENITOURINARY: Absent: dysuria SKIN: +rash Absent: rash, itching, pallor NEUROLOGIC: Absent: headache PSYCHIATRIC: Absent: depression, suicidal ideation PHYSICAL EXAMINATION Vital Signs - 24 hr 03/17/17 03/17/17 00:54 03:25 Temperature 97.8 F 98.2 F Pulse Rate 92 H Pulse Rate [ 78 Apical] Respiratory 18 12 Rate Blood Pressure 94/42 Blood Pressure 100/60 [Right Arm] O2 Sat by Pulse 98 Oximetry (%) GENERAL: Awake, alert, and fully oriented, in no acute distress. EYES: Small cut above R eye. Pupils equal, round and reactive to light, extraocular movements intact, sclera anicteric, conjunctiva clear. No lid lag. EARS, NOSE, THROAT: Ears normal, nares patent. Moist mucous membranes. Uvula midline. NECK: Normal range of motion, supple LUNGS: Breath sounds equal, clear to auscultation bilaterally. No wheezes, and no crackles. No accessory muscle use. HEART: Regular rate and rhythm, normal S1 and S2 without murmur, rub or gallop. ABDOMEN: Soft, nontender, not distended, normoactive bowel sounds, no guarding UPPER EXTREMITIES: warm, well-perfused. No cyanosis. No clubbing. No peripheral edema. 5/5 UE strength. LOWER EXTREMITIES: warm, well-perfused. No calf tenderness. No peripheral edema. NEUROLOGICAL: Cranial nerves II-XII grossly intact. Normal speech. Gait not observed. PSYCHIATRIC: Cooperative but not completely forthcoming with history of events from yesterday. Good eye contact. Appropriate mood and affect. SKIN: Warm, dry Laboratory Results - last 24 hr 03/17/17 03/17/17 03/17/17 01:41 01:41 01:41 WBC 19.2 H D RBC 5.97 H Hgb 16.8 D Hct 50.0 H D MCV 83.7 MCH 28.2 MCHC 33.7 RDW 13.3 Plt Count 177 MPV 10.3 Neutrophils % 81.8 D Lymphocytes % 10.2 D Monocytes % 7.7 Eosinophils % 0.0 D Basophils % 0.3 Sodium Potassium Chloride Carbon Dioxide Anion Gap BUN Creatinine Creat Clearance w eGFR Random Glucose Lactic Acid Calcium Total Bilirubin AST ALT Alkaline Phosphatase Creatine Kinase 170 Creatine Kinase Index 0.8 CK-MB (CK-2) 1.499 Troponin I 0.07 H Total Protein Albumin Salicylates < 4.0 Acetaminophen < 2.000 L Alcohol, Quantitative 37.7 H* 03/17/17 03/17/17 03/17/17 01:41 01:41 02:45 WBC RBC Hgb Hct MCV MCH MCHC RDW Plt Count MPV Neutrophils % Lymphocytes % Monocytes % Eosinophils % Basophils % Sodium 139 Potassium 3.3 L Chloride 101 Carbon Dioxide 26 Anion Gap 12 BUN 10 D Creatinine 0.9 D Creat Clearance w eGFR > 60 Random Glucose 103 Lactic Acid 2.0 Calcium 8.7 Total Bilirubin 0.4 D AST 11 L D ALT 20 D Alkaline Phosphatase 92 D Creatine Kinase Cancelled Creatine Kinase Index CK-MB (CK-2) Troponin I Total Protein 6.9 D Albumin 3.8 D Salicylates Acetaminophen Alcohol, Quantitative 03/17/17 03/17/17 06:04 06:04 WBC RBC Hgb Hct MCV MCH MCHC RDW Plt Count MPV Neutrophils % Lymphocytes % Monocytes % Eosinophils % Basophils % Sodium Potassium Chloride Carbon Dioxide Anion Gap BUN Creatinine Creat Clearance w eGFR Random Glucose Lactic Acid 1.4 Calcium Total Bilirubin AST ALT Alkaline Phosphatase Creatine Kinase 160 Creatine Kinase Index 1.2 CK-MB (CK-2) 1.941 Troponin I 0.06 H Total Protein Albumin Salicylates Acetaminophen Alcohol, Quantitative Imaging: Head CT 03/17/17: No evidence of ICH, edema, midline shift, mass effect of skull fracture. NO CT evidence of acute ischemic changes. Cervical Spine CT 03/17/17: No fracture, subluxation, prevertebral soft tissue swelling or significant degenerative changes. Mild apical emphysema noted. CXR 03/17/17: No acute pathology Micro: Blood Culture 03/17/17: Pending Active Medications Levetiracetam 1,000 mg/ (Dextrose) 110 mls @ 440 mls/hr IVPB ONCE ONE Stop: 03/17/17 09:14 ASSESSMENT/PLAN: 26 y/o M w/PMH of depression, alcohol abuse, seizures presents to the ER after being found on the floor outside his bathroom by his mother. Found to be intoxicated with alcohol. Admitted for observation. -Acute Alcohol Intoxication -alcohol level on presentation: 37.7 -Thiamine 100 mg PO once, folic acid 1 mg PO once, Multivitamin once -f/u CMP, Mg, Phos -f/u Utox -monitor for signs of withdrawal -alcohol cessation counseling given -Possible seizure / LOC -c/w keppra 1g bid -Tropinemia -likely demand from possible seizure, dehydration -downtrending, will trend one more -no ischemic changes on EKG noted -Urticaria / Allergic reaction -improved s/p bendaryl, solumedrol, pepcid -unknown causative agent -Polycythemia -likely secondary to dehydration -c/w IVF -Depression -c/w celexa 20 mg po qd -Nicotine dependance -nicotine patch if pt requests -DVT ppx -ambulation encouraged -FEN -NS , finish current 1 L bag that is hung -Hypokalemia, repleted in ER, monitor lytes -Regular diet -Dispo: Admit for observation. Likely to be discharged soon. Visit type - Emergency Visit Emergency Visit: Yes ED Registration Date: 03/17/17 Care time: The patient presented to the Emergency Department on the above date and was hospitalized for further evaluation of their emergent condition. - New Patient This patient is new to me today: Yes Date on this admission: 03/17/17 - Critical Care Critical Care patient: No
[2017-03-17 08:39] LABS: BASO % 0.2 % (0-2.0); HEMATOCRIT 49.2 % (35.4-49); HEMOGLOBIN 16.4 GM/dL (11.7-16.9); LYMPH % 4.9 % (8-40); MCH 28.2 pg (25.7-33.7); MCHC 33.3 g/dl (32.0-35.9); MEAN CELL VOLUME 84.7 fl (80-96); MEAN PLT VOLUME 10.7 fl (7.5-11.1); MONO % 0.7 % (3.8-10.2); NEUT % 94.2 % (42.8-82.8); PLATELET COUNT 180 K/MM3 (134-434); RBC 5.81 M/mm3 (4.00-5.60); RDW 13.3 % (11.9-15.9); WHITE BLOOD COUNT 14.1 K/mm3 (4.0-10.0)
--- NOTE | 2017-03-17 08:50 | DS ---
Physical Exam: SUBJECTIVE: Patient seen and examined at bedside in ER. Pt states he feels well. Denies any suicidal ideation. Would like to go home. OBJECTIVE: Vital Signs Period Temp Pulse Resp BP Sys/Ward Pulse Ox Last 24 Hr 97.8 F-98.2 F 78-92 12-18 94-100/42-60 98 PHYSICAL EXAM GENERAL: Awake, alert, and fully oriented, in no acute distress. EYES: Small cut above R eye. Pupils equal, round and reactive to light, extraocular movements intact, sclera anicteric, conjunctiva clear. No lid lag. EARS, NOSE, THROAT: Ears normal, nares patent. Moist mucous membranes. NECK: Normal range of motion, supple LUNGS: Breath sounds equal, clear to auscultation bilaterally. No wheezes, and no crackles. No accessory muscle use. HEART: Regular rate and rhythm, normal S1 and S2 without murmur, rub or gallop. ABDOMEN: Soft, nontender, not distended, normoactive bowel sounds, no guarding UPPER EXTREMITIES: warm, well-perfused. No cyanosis. No clubbing. No peripheral edema. LOWER EXTREMITIES: warm, well-perfused. No calf tenderness. No peripheral edema. NEUROLOGICAL: Cranial nerves II-XII grossly intact. Normal speech. Gait not observed. PSYCHIATRIC: Cooperative but not completely forthcoming with history of events from yesterday. Good eye contact. Appropriate mood and affect. SKIN: Warm, dry LABS Laboratory Results - last 24 hr 03/17/17 03/17/17 03/17/17 01:41 01:41 01:41 WBC 19.2 H D RBC 5.97 H Hgb 16.8 D Hct 50.0 H D MCV 83.7 MCH 28.2 MCHC 33.7 RDW 13.3 Plt Count 177 MPV 10.3 Neutrophils % 81.8 D Lymphocytes % 10.2 D Monocytes % 7.7 Eosinophils % 0.0 D Basophils % 0.3 Sodium Potassium Chloride Carbon Dioxide Anion Gap BUN Creatinine Creat Clearance w eGFR Random Glucose Lactic Acid Calcium Total Bilirubin AST ALT Alkaline Phosphatase Creatine Kinase 170 Creatine Kinase Index 0.8 CK-MB (CK-2) 1.499 Troponin I 0.07 H Total Protein Albumin Salicylates < 4.0 Acetaminophen < 2.000 L Alcohol, Quantitative 37.7 H* 03/17/17 03/17/17 03/17/17 01:41 01:41 02:45 WBC RBC Hgb Hct MCV MCH MCHC RDW Plt Count MPV Neutrophils % Lymphocytes % Monocytes % Eosinophils % Basophils % Sodium 139 Potassium 3.3 L Chloride 101 Carbon Dioxide 26 Anion Gap 12 BUN 10 D Creatinine 0.9 D Creat Clearance w eGFR > 60 Random Glucose 103 Lactic Acid 2.0 Calcium 8.7 Total Bilirubin 0.4 D AST 11 L D ALT 20 D Alkaline Phosphatase 92 D Creatine Kinase Cancelled Creatine Kinase Index CK-MB (CK-2) Troponin I Total Protein 6.9 D Albumin 3.8 D Salicylates Acetaminophen Alcohol, Quantitative 03/17/17 03/17/17 03/17/17 06:04 06:04 08:10 WBC 14.1 H RBC 5.81 H Hgb 16.4 Hct 49.2 H MCV 84.7 MCH 28.2 MCHC 33.3 RDW 13.3 Plt Count 180 MPV 10.7 Neutrophils % 94.2 H Lymphocytes % 4.9 L D Monocytes % 0.7 L D Eosinophils % 0.0 Basophils % 0.2 Sodium Potassium Chloride Carbon Dioxide Anion Gap BUN Creatinine Creat Clearance w eGFR Random Glucose Lactic Acid 1.4 Calcium Total Bilirubin AST ALT Alkaline Phosphatase Creatine Kinase 160 Creatine Kinase Index 1.2 CK-MB (CK-2) 1.941 Troponin I 0.06 H Total Protein Albumin Salicylates Acetaminophen Alcohol, Quantitative HOSPITAL COURSE: Date of Admission:03/17/17 Date of Discharge: 03/17/17 Prehospital course: 26 y/o M w/PMH of depression, alcohol abuse, seizures presents to the ER after being found on the floor outside his bathroom by his mother. Pt states he was drinking alcohol but would not tell me how much he drank or how often he drinks. He remembers taking standing over the sink in his bathroom and the next thing he remembers is being on the floor in front of his bathroom. He hit his head but does not know where or remember where during the episode of LOC. He is non-complaint with his seizure meds and says he takes them on and off. He denies any suicidal ideation. He had an episode of vomiting yesterday but denies feeling nauseous now. He denies F/C, CP, SOB, abd pain, LE edema. He states he feels well right now and would like to go home. Rash that was found in ER is now improved s/p meds. Hospital course: Pt was found to have alcohol level of 37.7 & negative Utox except for marijuana , CT head was negative, CT cspine was negative, and CXR was negative for acute pathology. Pt was found to have elevated trops at 0.07 which downtrended to 0.06 on next draw and finally to 0.04 on third draw. EKG showed no signs of ischemic changes. Pt was noncompliant with keppra regimen and drinking alcohol and may have had seizure which caused LOC and consequent head trauma. Pt was seen next morning and pt felt well and denied any complaints and denied any suicidal ideation. Pt was counseled on alcohol cessation. Pt given NS, thiamine , folic acid, and multivitamin for alcohol intoxication. Pt restarted on keppra. Pt was given IV benadryl, solumedrol, pepcid for urticaria which improved s/p meds. Pt to f/u with PCP after discharge. Medical therapy compliance stressed to patient as well. Minutes to complete discharge: 35 Discharge Summary Reason For Visit: ALTERED MENTAL STATUS Current Active Problems Allergic reaction (Acute) Seizure (Acute) Condition: Stable - Instructions Diet, Activity, Other Instructions: You were brought to the hospital due to loss of consciousness. It is extremely important to take all your medications as prescribed. It is also important to stop any alcohol use as it can increase your risk of having seizures. You will need to follow up with your primary care doctor in 1-2 weeks. If you begin to have severe headaches, change in vision, seizures, nausea/ vomiting please call your doctor or come back to the emergency room. Referrals: ON STAFF,NOT [Non Staff, Medical] - Disposition: HOME - Home Medications Comprehensive Discharge Medication List: Ambulatory Orders Bupropion Xl 300 mg PO DAILY 12/20/16 Escitalopram Oxalate 10 mg PO DAILY 12/20/16 Levetiracetam [Keppra -] 1,500 mg PO BID #60 tablet 01/26/17 This patient is new to me today: Yes Date on this admission: 03/17/17 Emergency Visit: Yes ED Registration Date: 03/17/17 Care time: The patient presented to the Emergency Department on the above date and was hospitalized for further evaluation of their emergent condition. Critical Care patient: No - Discharge Referral Referred to [facility] Med P.C.: No
[2017-03-17 09:10] LABS: ALBUMIN 3.9 g/dl (3.4-5.0); ANION GAP 10 (8-16); BLOOD UREA NITROGEN 11 mg/dL (7-18); CALCIUM 9.1 mg/dL (8.5-10.1); CHLORIDE 104 mmol/L (98-107); CO2 24 mmol/L (21-32); CREATININE 0.8 mg/dL (0.7-1.3); GLUCOSE,RANDOM 116 mg/dL (74-106); POTASSIUM 4.6 mmol/L (3.5-5.1); SGPT/ALT 17 U/L (12-78); SODIUM 138 mmol/L (136-145)
[2017-03-17 09:17] LABS: SGOT/AST 14 U/L (15-37)
[2017-03-17 09:36] LABS: BILIRUBIN,TOTAL 0.7 mg/dL (0.2-1.0); MAGNESIUM 1.7 mg/dL (1.8-2.4)
[2017-03-17 09:37] LABS: ALK PHOS 99 U/L (45-117); TOT PROT 7.2 g/dl (6.4-8.2)
[2017-03-17 09:44] LABS: COCAINE, UR NEGATIVE ng/ml (CUTOFF=300); METHADONE, UR NEGATIVE ng/ml (CUTOFF=300); OPIATES, URI NEGATIVE ng/ml (CUTOFF=300); PHENCYCLIDINE,URINE NEGATIVE ng/ml (CUTOFF=25); URINE AMPHETAMINES NEGATIVE ng/ml (CUTOFF=500); URINE BARBITURATES NEGATIVE ng/ml (CUTOFF=200); URINE BENZODIAZEPINES NEGATIVE ng/ml (CUTOFF=200)
--- NOTE | 2017-03-17 09:49 | PN ---
Teaching Attending Note Name of Resident: Cesar Waggoner ATTENDING PHYSICIAN STATEMENT I saw and evaluated the patient. I reviewed the resident's note and discussed the case with the resident. I agree with the resident's findings and plan as documented. SUBJECTIVE: OBJECTIVE: Vital Signs Period Temp Pulse Resp BP Sys/Ward Pulse Ox Last 24 Hr 97.8 F-98.2 F 78-92 12-18 94-100/42-60 98 Laboratory Tests 03/17/17 03/17/17 03/17/17 01:41 01:41 01:41 WBC 19.2 H D RBC 5.97 H Hgb 16.8 D Hct 50.0 H D MCV 83.7 MCH 28.2 MCHC 33.7 RDW 13.3 Plt Count 177 MPV 10.3 Neutrophils % 81.8 D Lymphocytes % 10.2 D Monocytes % 7.7 Eosinophils % 0.0 D Basophils % 0.3 Sodium Potassium Chloride Carbon Dioxide Anion Gap BUN Creatinine Creat Clearance w eGFR Random Glucose Lactic Acid Calcium Phosphorus Magnesium Total Bilirubin AST ALT Alkaline Phosphatase Creatine Kinase 170 Creatine Kinase Index 0.8 CK-MB (CK-2) 1.499 Troponin I 0.07 H Total Protein Albumin Salicylates < 4.0 Opiates Screen Methadone Screen Acetaminophen < 2.000 L Barbiturate Screen Phencyclidine Screen Ur Amphetamines Screen MDMA (Ecstasy) Screen Benzodiazepines Screen Cocaine Screen U Marijuana (THC) Screen Alcohol, Quantitative 37.7 H* 03/17/17 03/17/17 03/17/17 01:41 01:41 02:45 WBC RBC Hgb Hct MCV MCH MCHC RDW Plt Count MPV Neutrophils % Lymphocytes % Monocytes % Eosinophils % Basophils % Sodium 139 Potassium 3.3 L Chloride 101 Carbon Dioxide 26 Anion Gap 12 BUN 10 D Creatinine 0.9 D Creat Clearance w eGFR > 60 Random Glucose 103 Lactic Acid 2.0 Calcium 8.7 Phosphorus Magnesium Total Bilirubin 0.4 D AST 11 L D ALT 20 D Alkaline Phosphatase 92 D Creatine Kinase Cancelled Creatine Kinase Index CK-MB (CK-2) Troponin I Total Protein 6.9 D Albumin 3.8 D Salicylates Opiates Screen Methadone Screen Acetaminophen Barbiturate Screen Phencyclidine Screen Ur Amphetamines Screen MDMA (Ecstasy) Screen Benzodiazepines Screen Cocaine Screen U Marijuana (THC) Screen Alcohol, Quantitative 03/17/17 03/17/17 03/17/17 06:04 06:04 07:40 WBC RBC Hgb Hct MCV MCH MCHC RDW Plt Count MPV Neutrophils % Lymphocytes % Monocytes % Eosinophils % Basophils % Sodium 138 Potassium 4.6 D Chloride 104 Carbon Dioxide 24 Anion Gap 10 BUN 11 Creatinine 0.8 Creat Clearance w eGFR > 60 Random Glucose 116 H Lactic Acid 1.4 Calcium 9.1 Phosphorus 3.0 D Magnesium 1.7 L Total Bilirubin 0.7 D AST 14 L D ALT 17 Alkaline Phosphatase 99 Creatine Kinase 160 173 Creatine Kinase Index 1.2 CK-MB (CK-2) 1.941 Troponin I 0.06 H 0.04 D Total Protein 7.2 Albumin 3.9 Salicylates Opiates Screen Methadone Screen Acetaminophen Barbiturate Screen Phencyclidine Screen Ur Amphetamines Screen MDMA (Ecstasy) Screen Benzodiazepines Screen Cocaine Screen U Marijuana (THC) Screen Alcohol, Quantitative 03/17/17 03/17/17 08:10 08:10 WBC 14.1 H RBC 5.81 H Hgb 16.4 Hct 49.2 H MCV 84.7 MCH 28.2 MCHC 33.3 RDW 13.3 Plt Count 180 MPV 10.7 Neutrophils % 94.2 H Lymphocytes % 4.9 L D Monocytes % 0.7 L D Eosinophils % 0.0 Basophils % 0.2 Sodium Potassium Chloride Carbon Dioxide Anion Gap BUN Creatinine Creat Clearance w eGFR Random Glucose Lactic Acid Calcium Phosphorus Magnesium Total Bilirubin AST ALT Alkaline Phosphatase Creatine Kinase Creatine Kinase Index CK-MB (CK-2) Troponin I Total Protein Albumin Salicylates Opiates Screen Negative Methadone Screen Negative Acetaminophen Barbiturate Screen Negative Phencyclidine Screen Negative Ur Amphetamines Screen Negative MDMA (Ecstasy) Screen Negative Benzodiazepines Screen Negative Cocaine Screen Negative U Marijuana (THC) Screen Positive Alcohol, Quantitative Home Medications Medication Instructions Recorded Bupropion Xl 300 mg PO DAILY 12/20/16 Escitalopram Oxalate 10 mg PO DAILY 12/20/16 Levetiracetam [Keppra -] 1,500 mg PO BID #60 tablet 01/26/17 ASSESSMENT AND PLAN:
[2017-03-17] MEDS ORDERED: MAGNESIUM OXIDE 400 MG TABLET (FP) PO ONE (09:52)
[2017-03-17] MEDS ORDERED: MAGNESIUM OXIDE 400 MG TABLET (FP) ONE (09:58)
[2017-03-17 10:32] VITALS: BP 115/72
== END 2017-03-17 10:30 | disposition home or self-care (01) ==
LOC: JER 00:47 → JERBED 04:01 → UNDOADMOB 06:04 → JERBED 06:04
PROVIDERS: ADMIT Internal Medicine; ATTEND Internal Medicine
PROC: 3E0333Z Introduction of Anti-inflammatory into Peripheral Vein, Percutaneous Approach (ICD-10-PCS; principal; 2017-03-17)
PROC: 3E033GC Introduction of Other Therapeutic Substance into Peripheral Vein, Percutaneous Approach (ICD-10-PCS; 2017-03-17)
PROC: 3E0337Z Introduction of Electrolytic and Water Balance Substance into Peripheral Vein, Percutaneous Approach (ICD-10-PCS; 2017-03-17)
DX: F10.220 Alcohol dependence with intoxication, uncomplicated (principal); L50.0 Allergic urticaria; R79.89 Other specified abnormal findings of blood chemistry; D75.1 Secondary polycythemia; F32.9 Major depressive disorder, single episode, unspecified; F17.210 Nicotine dependence, cigarettes, uncomplicated
CPT/HCPCS: 36415; 70450-TC; 71046-TC-FY; 72125-TC; 80053; 80307; 82550; 82553; 83605; 83735; 84100; 84484; 85025; 87040; 93005; 93010; 96374; 96375; 99284-25; G0378

== ENCOUNTER 2018-01-02 22:38 | Emergency (ER) | payer OTHER ==
[2018-01-02 22:53] VITALS: BMI 24.4
[2018-01-02] MEDS ORDERED: SODIUM CHLORIDE 0.9% 500 ML INFUS.BAG IV ONE (23:18)
[2018-01-02] MEDS ORDERED: ONDANSETRON 4 MG/2 ML VIAL IVPUSH ONE (23:21)
[2018-01-02] MEDS ORDERED: ONDANSETRON 4 MG/2 ML VIAL ONE (23:24)
[2018-01-02 23:42] LABS: BASO % 0.6 % (0-2.0); EOS % 0.6 % (0-4.5); HEMATOCRIT 49.9 % (35.4-49); HEMOGLOBIN 16.7 GM/dL (11.7-16.9); LYMPH % 20.1 % (8-40); MCHC 33.6 g/dl (32.0-35.9); MEAN CELL VOLUME 83.4 fl (80-96); MEAN PLT VOLUME 9.4 fl (7.5-11.1); MONO % 6.5 % (3.8-10.2); NEUT % 72.2 % (42.8-82.8); PLATELET COUNT 324 K/MM3 (134-434); RBC 5.98 M/mm3 (4.00-5.60); RDW 12.8 % (11.9-15.9); WHITE BLOOD COUNT 10.4 K/mm3 (4.0-10.0)
--- NOTE | 2018-01-02 23:50 | PDOC ---
History of Present Illness - General Chief Complaint: Nausea/Vomiting Stated Complaint: NAUSEA/VOMITING Time Seen by Provider: 01/02/18 23:03 - History of Present Illness Initial Comments: Raleigh Farnsworth is a 27yo man with a PMH of polysubstance abuse who presents with three days of vomiting. He reports that he has been unable to eat or drink anything over the past 3 days; every time he tries, he vomits immediately. He has not noticed any blood or green color. He denies any recent alcohol intake, unusual foods, sick contacts, or recent travel. He has not had fevers, chills, change in bowel habits, or urinary symptoms. He does endorse upper abdominal pain, especially epigastric pain, but is unable to describe it other than "bad. " The pain does not appear to radiate, and he denies any history of heartburn or stomach ulcers. He has never had any abdominal surgeries. Past History - Past Medical History Allergies/Adverse Reactions: Allergies Allergy/AdvReac Type Severity Reaction Status Date / Time No Known Allergies Allergy Verified 01/02/18 22:53 Home Medications: Ambulatory Orders Amoxicillin - [Amoxicillin 500mg Capsule -] 500 mg PO TID 01/03/18 Buprenorphine HCl/Naloxone HCl [Suboxone 4 mg-1 mg Sl Film] 1 each SL DAILY Docusate Sodium [Colace] 100 mg PO DAILY 01/03/18 Gabapentin 600 mg PO QID 01/03/18 Naproxen 500 mg PO BID 01/03/18 Quetiapine Fumarate [Seroquel -] 400 mg PO BID 01/03/18 Venlafaxine HCl [Effexor -] 25 mg PO DAILY 01/03/18 COPD: No Psychiatric Problems: Yes - Immunization History Immunization Up to Date: Yes - Suicide/Smoking/Psychosocial Hx Smoking Status: Yes Smoking History: Never smoked Have you smoked in the past 12 months: No Number of Cigarettes Smoked Daily: 20 Information on smoking cessation initiated: No 'Breaking Loose' booklet given: 03/10/14 Hx Alcohol Use: No Drug/Substance Use Hx: No Substance Use Type: None Hx Substance Use Treatment: Yes Review of Systems - Review of Systems Comments:: General: No fevers, no chills, no weight or appetite change, no malaise HEENT: No changes in vision, no changes in hearing, no congestion, no sore throat CV: No chest pain, no palpitations, no LE edema Pulm: No SOB, no cough, no wheezing GI: See HPI : No frequency, no urgency, no dysuria Musc: No back pain, no joint swelling, no recent injury Skin: No rash, no lesions, no erythema Endo: No excessive thirst, no heat/cold intolerance Heme: No unusual bruising or bleeding, no swollen glands Neuro: No syncope, no numbness/tingling, no focal weakness Vasc: No claudication Psych: No recent change in mood, no SI or HI *Physical Exam - Vital Signs Last Vital Signs Temp Pulse Resp BP Pulse Ox 97.8 F 76 16 126/77 100 01/02/18 22:51 01/02/18 22:51 01/02/18 22:51 01/02/18 22:51 01/02/18 22:51 - Physical Exam Comments: General: Uncomfortable HEENT: PERRL, EOMI, dry tongue, voice normal, normal neck ROM, no LAD Cards: RRR, no murmur appreciated Pulm: Comfortable on room air, clear to auscultation bilaterally Abd: Soft, nondistended. Epigastric tenderness. Several episodes of retching witnessed Ext: Atraumatic. No LE edema. ROM intact. Strength 5/5 and equal bilaterally Vasc: Extremities WWP. Palpable radial and pedal pulses bilaterally Skin: Pale, no rashes or lesions Neuro: A&Ox3, CN grossly intact, normal speech, motor/sensory grossly intact and symmetric Psych: Mood appropriate to situation ED Treatment Course - LABORATORY CBC & Chemistry Diagram: 01/02/18 23:36 01/02/18 23:36 Medical Decision Making - Medical Decision Making 01/02/18 23:50 Raleigh Farnsworth is a 27yo man with a PMH of polysubstance abuse who presents with three days of vomiting and PO intolerance. - Suspect gastritis, though consider pancreatitis or cholecystitis. No blood in vomit suggesting esophogeal tear - CBC, CMP, lipase, amylase ordered. Likely to need imaging depending on results - 1L NS bolus - 4mg IV zofran for nausea/vomiting 01/03/18 00:30 - CBC returned, notable only for slight leukocytosis to 10.4 but no concerning abnormalities - Chemistry, lipase pending Patient signed out to Dr Roberts for the remainder of his ED care. Discussed with Dr Herrera. Roxane Arroyo *DC/Admit/Observation/Transfer Diagnosis at time of Disposition: Vomiting - Referrals - Patient Instructions - Post Discharge Activity
--- NOTE | 2018-01-03 00:10 | PDOC ---
Attending Attestation - Resident Resident Name: Roxane Arroyo - ED Attending Attestation I have performed the following: I have examined & evaluated the patient, The case was reviewed & discussed with the resident, I agree w/resident's findings & plan, Exceptions are as noted - HPI HPI: 01/03/18 01:02 Tall, thin 27 yo male p/w nausea and vomiting head ncat eyes danielle eomi neck supple lungs cta b/l cvs [id number] abd no rebound,no guarding ext no deformities skin warm and dry neuro axox3,motor strenght 5/5 b/l, ambulatory psych appropriate - Physicial Exam PE: 01/05/18 01:16 please see above physical exam - Medical Decision Making 01/03/18 01:06 pt had benign abd exam pt symptoms resolved with IVF,anti emetics imp gastritis plan RX zofran d/c home pt and his family told that the symptoms should be self limiting and if the symptoms recurred to return to the emergency dept
[2018-01-03 00:54] LABS: ALBUMIN 4.4 g/dl (3.4-5.0); ALK PHOS 124 U/L (45-117); AMYLASE 24 U/L (25-115); ANION GAP 8 MMOL/L (8-16); BILIRUBIN,TOTAL 0.8 mg/dL (0.2-1); BLOOD UREA NITROGEN 28 mg/dL (7-18); CALCIUM 9.6 mg/dL (8.5-10.1); CHLORIDE 102 mmol/L (98-107); CO2 27 mmol/L (21-32); CREATININE 0.8 mg/dL (0.55-1.3); GLUCOSE,RANDOM 115 mg/dL (74-106); LIPASE 83 U/L (73-393); POTASSIUM 4.9 mmol/L (3.5-5.1); SGOT/AST 48 U/L (15-37); SGPT/ALT 73 U/L (13-61); SODIUM 137 mmol/L (136-145); TOT PROT 8.5 g/dl (6.4-8.2)
--- NOTE | 2018-01-03 00:57 | PDOC ---
*Physical Exam - Vital Signs Last Vital Signs Temp Pulse Resp BP Pulse Ox 97.8 F 76 16 126/77 100 01/02/18 22:51 01/02/18 22:51 01/02/18 22:51 01/02/18 22:51 01/02/18 22:51 - Physical Exam Comments: 01/03/18 01:01 General Appearance: Nourished. No Apparent Distress HEENT: No Pharyngeal Erythema, Tonsillar Exudate, Tonsillar Erythema Neck: No Cervical Lymphadenopathy Respiratory/Chest: Lungs Clear, Normal Breath Sounds. No Crackles, Rales, Rhonchi, Wheezing Cardiovascular: Regular Rhythm, Regular Rate. No Murmur, Gallops, Rubs Gastrointestinal/Abdominal: Normal Bowel Sounds, Soft. No Guarding, Rebound, Tenderness Musculoskeletal: No CVA Tenderness Extremity: Normal Capillary Refill Integumentary: Normal Color, Dry, Warm Neurologic: Fully Oriented, Alert, Normal Mood/Affect, Normal Response, ED Treatment Course - LABORATORY CBC & Chemistry Diagram: 01/02/18 23:36 01/02/18 23:36 - ADDITIONAL ORDERS Additional order review: Laboratory Results 01/02/18 23:36 Sodium 137 Potassium 4.9 Chloride 102 Carbon Dioxide 27 Anion Gap 8 BUN 28 H Creatinine 0.8 Creat Clearance w eGFR > 60 Random Glucose 115 H Calcium 9.6 Total Bilirubin 0.8 AST 48 H ALT 73 H Alkaline Phosphatase 124 H Total Protein 8.5 H Albumin 4.4 Total Amylase 24 L Lipase 83 01/02/18 23:36 RBC 5.98 H MCV 83.4 MCHC 33.6 RDW 12.8 MPV 9.4 D Neutrophils % 72.2 D Lymphocytes % 20.1 D Monocytes % 6.5 D Eosinophils % 0.6 D Basophils % 0.6 - Medications Given in the ED: ED Medications Discontinued Medications Generic Name Dose Route Start Last Admin Trade Name Freq PRN Reason Stop Dose Admin Ondansetron HCl 4 mg 01/02/18 23:21 01/02/18 23:40 Zofran Injection IVPUSH 01/02/18 23:22 4 mg ONCE ONE Administration Sodium Chloride 1,000 ml 01/02/18 23:18 01/02/18 23:40 Normal Saline - IV 01/02/18 23:19 1,000 ml ONCE ONE Administration Progress Note - Progress Note Progress Note: The patient is a 27 year old male with a history of polysubstance abuse who presents for evaluation of nausea and vomiting. The patient is pending lab results and reassessment. Medical Decision Making - Medical Decision Making 01/03/18 01:02 CBC, cmp are unremarkable. The patient reports improvement in his symptoms and appears clinically well. We are comfortable discharging the patient home with GI follow up. We discussed the results, plan, and return precautions with the patient who voiced understanding and is agreeable with the plan. *DC/Admit/Observation/Transfer Diagnosis at time of Disposition: Vomiting Qualifiers: Vomiting type: unspecified Vomiting Intractability: unspecified Nausea presence : unspecified Qualified Code(s): R11.10 - Vomiting, unspecified - Discharge Dispostion Condition at time of disposition: Stable - Prescriptions Prescriptions: Ondansetron [Zofran -] 4 mg PO TID #21 tablet - Referrals Referrals: Matt Montes MD [Staff Physician] - - Patient Instructions Printed Discharge Instructions: DI for Vomiting -- Adult Additional Instructions: Please return to the ER if you experience concerning or worsening symptoms including worsening difficulty breathing, weakness, or chest pain, abdominal pain, fevers. Your lab results were normal here in the ER. Please call to schedule a follow up appointment with our GI specialist Dr. Montes within 2-3 days to discuss your ER visit and further management of your symptoms. - Post Discharge Activity
[2018-01-03 01:19] VITALS: BP 120/82; PULSE 63; TEMP 98.3
== END 2018-01-03 01:19 | disposition home or self-care (01) ==
LOC: JER 22:38
PROC: 3E033GC Introduction of Other Therapeutic Substance into Peripheral Vein, Percutaneous Approach (ICD-10-PCS; principal; 2018-01-02)
DX: R11.10 Vomiting, unspecified (principal)
CPT/HCPCS: 36415; 80053; 82150; 83690; 85025; 96374; 99282-25

== ENCOUNTER 2018-01-17 22:23 | Emergency (ER) | payer OTHER ==
[2018-01-17 22:28] VITALS: BP 128/74; PULSE 87; TEMP 98.4; BMI 20.3
[2018-01-17] MEDS ORDERED: ONDANSETRON 4 MG/2 ML VIAL IVPUSH ONE (22:54)
[2018-01-17] MEDS ORDERED: SODIUM CHLORIDE 1,000 ML IV STA (22:54)
--- NOTE | 2018-01-17 22:56 | PDOC ---
History of Present Illness - General Chief Complaint: Nausea/Vomiting Stated Complaint: Nausea/Vomiting Time Seen by Provider: 01/17/18 22:36 History Source: Patient Exam Limitations: No Limitations - History of Present Illness Initial Comments: 27 y/o M hx of depression, polysubstance abuse (alcohol, cocaine, marijuana, MDMA; patient states he quit everything and has been sober for 2 months) presents with intermittent NBNB emesis x 2 weeks along with generalized abdominal pain. Patient was seen in ED on 01/02 for similar complaints, discharged on Zofran, but states he was only able to take it for 2 days. Denies fever, chills, sob, cp, diarrhea, black/bloody stools, urinary complaints. Denies abdominal surgeries. Denies feeling this way prior. 01/17/18 22:58 Past History - Past Medical History Allergies/Adverse Reactions: Allergies Allergy/AdvReac Type Severity Reaction Status Date / Time No Known Allergies Allergy Verified 01/02/18 22:53 Home Medications: Ambulatory Orders Ondansetron [Zofran Odt -] 4 mg SL BID PRN #14 od.tablet 01/18/18 COPD: No Psychiatric Problems: Yes - Immunization History Immunization Up to Date: Yes - Suicide/Smoking/Psychosocial Hx Smoking Status: Yes Smoking History: Current every day smoker Have you smoked in the past 12 months: No Number of Cigarettes Smoked Daily: 20 Information on smoking cessation initiated: No 'Breaking Loose' booklet given: 03/10/14 Hx Alcohol Use: No Drug/Substance Use Hx: No Substance Use Type: None Hx Substance Use Treatment: Yes Review of Systems - Review of Systems Comments:: see hpi 01/17/18 23:06 *Physical Exam - Vital Signs Last Vital Signs Temp Pulse Resp BP Pulse Ox 98.4 F 87 18 128/74 97 01/17/18 22:26 01/17/18 22:26 01/17/18 22:26 01/17/18 22:26 01/17/18 22:26 - Physical Exam General Appearance: No: Apparent Distress Respiratory/Chest: positive: Lungs Clear, Normal Breath Sounds. negative: Respiratory Distress Cardiovascular: positive: Regular Rhythm, Regular Rate, S1, S2. negative: Murmur Gastrointestinal/Abdominal: positive: Normal Bowel Sounds, Tender (Minimal TTP along LUQ), Soft. negative: Protuberent, Distended, Guarding, Rebound, Mass Musculoskeletal: negative: CVA Tenderness Neurologic: positive: Fully Oriented, Alert, Normal Mood/Affect Moderate Sedation - Procedure Monitoring Vital Signs: Procedure Monitoring Vital Signs Temperature 98.4 F 01/17/18 22:26 Pulse Rate 87 01/17/18 22:26 Respiratory Rate 18 01/17/18 22:26 Blood Pressure 128/74 01/17/18 22:26 O2 Sat by Pulse Oximetry (%) 97 01/17/18 22:26 ED Treatment Course - LABORATORY CBC & Chemistry Diagram: 01/17/18 23:28 01/17/18 23:28 Medical Decision Making - Medical Decision Making 27 y/o M hx of polysubstance abuse (sober x 2 months), depression, seizures presents with NBNB emesis x 2 weeks. Less likely hyperemesis cannabinoid syndrome given has not used drugs x 2 months. Unlikely opiate withdrawal ( patient on suboxone). Consider pancreatitis? Also less supicious for cholecystitis given no RUQ pain/TTP. Plan: CBC, CMP, Mg, lipase, IVF, Zofran, reassess 01/17/18 23:07 Labs reviewed and unremarkable. No leukocytosis; LFTs and lipase are normal Patient passed PO challenge Clinically, patient appears well and resting comfortably Will send rx for ODT Zofran and refer patient to GI for further evaluation Return precautions discussed 01/18/18 00:57 *DC/Admit/Observation/Transfer Diagnosis at time of Disposition: Vomiting - Discharge Dispostion Disposition: HOME Condition at time of disposition: Good Decision to Admit order: No - Prescriptions Prescriptions: Ondansetron [Zofran Odt -] 4 mg SL BID PRN #14 od.tablet PRN Reason: Nausea - Referrals Referrals: Vianca Duron MD [Primary Care Provider] - 3 days Cedric Hinton MD [Staff Physician] - Call tomorrow Jimmy Robertson MD [Staff Physician] - Call tomorrow - Patient Instructions Printed Discharge Instructions: DI for Vomiting -- Adult Additional Instructions: Thank you for choosing [facility]. It was a pleasure taking care of you. You were seen here for vomiting. Your labs were unremarkable Please use the ODT Zofran as needed for nausea (it dissolves under your tongue) Please call either of the GI doctors listed for follow-up Return to the Emergency Department if your symptoms worsen or persist, you have fever, shortness of breath, chest pain, severe abdominal pain, vomiting up blood , passing black or bloody stools or other concerning symptoms. - Post Discharge Activity Forms/Work/School Notes: Back to Work
[2018-01-17] MEDS ORDERED: ONDANSETRON 4 MG/2 ML VIAL ONE (23:21)
[2018-01-17 23:37] LABS: BASO % 1.2 % (0-2.0); EOS % 1.2 % (0-4.5); HEMOGLOBIN 15.4 GM/dL (11.7-16.9); LYMPH % 30.2 % (8-40); MCH 28.8 pg (25.7-33.7); MCHC 35.1 g/dl (32.0-35.9); MEAN CELL VOLUME 82.1 fl (80-96); NEUT % 60.4 % (42.8-82.8); PLATELET COUNT 238 K/MM3 (134-434); RBC 5.35 M/mm3 (4.00-5.60); RDW 12.6 % (11.9-15.9); WHITE BLOOD COUNT 8.8 K/mm3 (4.0-10.0)
[2018-01-18] LABS: ALBUMIN 4.1 g/dl (3.4-5.0); ALK PHOS 106 U/L (45-117); ANION GAP 10 MMOL/L (8-16); BILIRUBIN,TOTAL 0.6 mg/dL (0.2-1); BLOOD UREA NITROGEN 16 mg/dL (7-18); CALCIUM 9.3 mg/dL (8.5-10.1); CHLORIDE 104 mmol/L (98-107); CO2 25 mmol/L (21-32); CREATININE 0.9 mg/dL (0.55-1.3); GLUCOSE,RANDOM 99 mg/dL (74-106); LIPASE 109 U/L (73-393); POTASSIUM 3.7 mmol/L (3.5-5.1); SGOT/AST 15 U/L (15-37); SGPT/ALT 30 U/L (13-61); SODIUM 140 mmol/L (136-145); TOT PROT 7.4 g/dl (6.4-8.2)
--- NOTE | 2018-01-18 01:30 | PDOC ---
*Physical Exam - Vital Signs Last Vital Signs Temp Pulse Resp BP Pulse Ox 98.4 F 87 18 128/74 97 01/17/18 22:26 01/17/18 22:26 01/17/18 22:26 01/17/18 22:26 01/17/18 22:26 ED Treatment Course - LABORATORY CBC & Chemistry Diagram: 01/17/18 23:28 01/17/18 23:28 - ADDITIONAL ORDERS Additional order review: Laboratory Results 01/17/18 01/17/18 23:28 23:28 Sodium 140 Potassium 3.7 Chloride 104 Carbon Dioxide 25 Anion Gap 10 BUN 16 Creatinine 0.9 Creat Clearance w eGFR > 60 Random Glucose 99 Calcium 9.3 Magnesium 2.1 Total Bilirubin 0.6 AST 15 ALT 30 Alkaline Phosphatase 106 Total Protein 7.4 Albumin 4.1 Lipase 109 01/17/18 23:28 RBC 5.35 MCV 82.1 MCHC 35.1 RDW 12.6 MPV 10.0 Neutrophils % 60.4 Lymphocytes % 30.2 D Monocytes % 7.0 Eosinophils % 1.2 D Basophils % 1.2 - Medications Given in the ED: ED Medications Discontinued Medications Generic Name Dose Route Start Last Admin Trade Name Freq PRN Reason Stop Dose Admin Sodium Chloride 1,000 mls @ 1,000 mls/hr 01/17/18 22:54 01/17/18 23:31 Normal Saline - IV 01/17/18 23:53 1,000 mls/hr ASDIR STA Administration Ondansetron HCl 4 mg 01/17/18 22:54 01/17/18 23:31 Zofran Injection IVPUSH 01/17/18 22:55 4 mg ONCE ONE Administration Medical Decision Making - Medical Decision Making 01/18/18 01:24 I agree with the mid level provider's assessment and management of this case I saw this patient previously on 01/02/18 for similar complaints, cyclical vomiting. No fever,no diarrhea. he has a benign abdominal exam. All labs are within normal limits pt was referred to gastroenterology for further evaluation *DC/Admit/Observation/Transfer Diagnosis at time of Disposition: Vomiting - Discharge Dispostion Disposition: HOME Condition at time of disposition: Good - Prescriptions Prescriptions: Ondansetron [Zofran Odt -] 4 mg SL BID PRN #14 od.tablet PRN Reason: Nausea - Referrals Referrals: Cedric Hinton MD [Staff Physician] - Call tomorrow Jimmy Robertson MD [Staff Physician] - Call tomorrow Vianca Duron MD [Primary Care Provider] - 3 days - Patient Instructions Printed Discharge Instructions: DI for Vomiting -- Adult Additional Instructions: Thank you for choosing [facility]. It was a pleasure taking care of you. You were seen here for vomiting. Your labs were unremarkable Please use the ODT Zofran as needed for nausea (it dissolves under your tongue) Please call either of the GI doctors listed for follow-up Return to the Emergency Department if your symptoms worsen or persist, you have fever, shortness of breath, chest pain, severe abdominal pain, vomiting up blood , passing black or bloody stools or other concerning symptoms. - Post Discharge Activity Forms/Work/School Notes: Back to Work
== END 2018-01-18 01:25 | disposition home or self-care (01) ==
LOC: JER 22:23
PROC: 3E033GC Introduction of Other Therapeutic Substance into Peripheral Vein, Percutaneous Approach (ICD-10-PCS; principal; 2018-01-17)
PROC: 3E0337Z Introduction of Electrolytic and Water Balance Substance into Peripheral Vein, Percutaneous Approach (ICD-10-PCS; 2018-01-17)
DX: R11.10 Vomiting, unspecified (principal); F17.210 Nicotine dependence, cigarettes, uncomplicated; F99 Mental disorder, not otherwise specified; F19.10 Other psychoactive substance abuse, uncomplicated
CPT/HCPCS: 36415; 80053; 83690; 83735; 85025; 96361; 96374; 99283-25; J7030

== ENCOUNTER 2020-01-24 12:34 | Emergency (ER) | payer OTHER ==
[2020-01-24 12:41] VITALS: BP 132/86; PULSE 86; TEMP 97.5; BMI 23.8
== END 2020-01-24 13:22 | disposition home or self-care (01) ==
LOC: JERFT 12:34
DX: S50.811A Abrasion of right forearm, initial encounter (principal); S50.812A Abrasion of left forearm, initial encounter; F11.10 Opioid abuse, uncomplicated
CPT/HCPCS: 99282-25

== ENCOUNTER 2020-02-12 11:15 | Inpatient (IN) | payer OTHER ==
[2020-02-12] MEDS ORDERED: methaDONE HCL 10 MG TABLET (FOR DETOX USE ONLY) ONE (12:55)
[2020-02-12 13:09] VITALS: BMI 23.1
[2020-02-12] MEDS ORDERED: BISMUTH SUBSALICYLATE 262 MG/15 ML BTL PO PRN (13:10)
[2020-02-12] MEDS ORDERED: cloNIDine HCL 0.1 MG TABLET PO PRN (13:10)
[2020-02-12] MEDS ORDERED: METHOCARBAMOL 500 MG TABLET PO PRN (13:10)
[2020-02-12] MEDS ORDERED: methaDONE HCL 10 MG TABLET (FOR DETOX USE ONLY) PO ONE (13:10)
[2020-02-12] MEDS ORDERED: MAGNESIUM CITRATE 300 ML BOTTLE PO PRN (13:10)
[2020-02-12] MEDS ORDERED: MAG HYDROX/AL HYDROX/SIMETH 30 ML UNIT-DOSE CUP PO PRN (13:10)
[2020-02-12] MEDS ORDERED: IBUPROFEN 400 MG TABLET (FP) PO PRN (13:10)
[2020-02-12] MEDS ORDERED: ACETAMINOPHEN 325 MG TABLET (FP) PO PRN ×2 (13:10)
[2020-02-12] MEDS ORDERED: MAGNESIUM HYDROX 2400MG/30ML ORAL SUSPENSION 30 ML CUP PO PRN (13:10)
[2020-02-12] MEDS ORDERED: MENTHOL/PHENOL 1 EACH UD MM PRN (13:10)
[2020-02-12] MEDS ORDERED: NICOTINE POLACRILEX 2 MG GUM BUC PRN (13:10)
[2020-02-12] MEDS ORDERED: ONDANSETRON *ODT* 4 MG TABLET SL PRN (13:10)
[2020-02-12] MEDS: hydrOXYzine PAMOATE 25 MG CAPSULE (FP) PO SCH ×3 (14:48→23:25)
[2020-02-12] MEDS: PRENATAL VITAMINS W/ FOLIC ACID TABLET (FP) PO SCH (14:49)
[2020-02-12] MEDS: NICOTINE 14 MG/24 HOURS TOPICAL PATCH TD SCH (14:49)
[2020-02-12 14:51] LABS: HEMATOCRIT 49.7 % (35.4-49); HEMOGLOBIN 16.9 GM/dL (11.7-16.9); MCH 29.4 pg (25.7-33.7); MCHC 34.1 g/dl (32.0-35.9); MEAN CELL VOLUME 86.5 fl (80-96); PLATELET COUNT 333 K/MM3 (134-434); RBC 5.75 M/mm3 (4.00-5.60); WHITE BLOOD COUNT 12.9 K/mm3 (4.0-10.0)
[2020-02-12] MEDS: MELATONIN 5 MG TABLETS PO SCH (23:24)
[2020-02-12] MEDS: THIAMINE HCL 100 MG TABLET (FP) PO SCH (23:25)
[2020-02-13] MEDS: hydrOXYzine PAMOATE 25 MG CAPSULE (FP) PO SCH ×5 (06:15→22:39)
[2020-02-13] MEDS ORDERED: methaDONE HCL 10 MG TABLET (FOR DETOX USE ONLY) ONE (08:41)
[2020-02-13] MEDS: PRENATAL VITAMINS W/ FOLIC ACID TABLET (FP) PO SCH (09:57)
[2020-02-13] MEDS: NICOTINE 14 MG/24 HOURS TOPICAL PATCH TD SCH (09:57)
[2020-02-13] MEDS: PANTOPRAZOLE 40 MG TABLET PO SCH (09:58)
[2020-02-13 11:00] LABS: BLOOD UREA NITROGEN 17.2 mg/dL (7-18); CALCIUM 9.3 mg/dL (8.5-10.1)
[2020-02-13 11:03] LABS: CREATININE 1.1 mg/dL (0.55-1.3)
[2020-02-13 11:05] LABS: BILIRUBIN,TOTAL 0.8 mg/dL (0.2-1); TOT PROT 7.7 g/dl (6.4-8.2)
[2020-02-13] MEDS: MELATONIN 5 MG TABLETS PO SCH (22:39)
[2020-02-13] MEDS: THIAMINE HCL 100 MG TABLET (FP) PO SCH (22:39)
[2020-02-14] MEDS: hydrOXYzine PAMOATE 25 MG CAPSULE (FP) PO SCH ×5 (06:33→22:24)
[2020-02-14] MEDS: PRENATAL VITAMINS W/ FOLIC ACID TABLET (FP) PO SCH (09:11)
[2020-02-14] MEDS: PANTOPRAZOLE 40 MG TABLET PO SCH (09:13)
[2020-02-14] MEDS: NICOTINE 14 MG/24 HOURS TOPICAL PATCH TD SCH (09:13)
[2020-02-14] MEDS ORDERED: methaDONE HCL 10 MG TABLET (FOR DETOX USE ONLY) PO ONE (10:00)
[2020-02-14] MEDS ORDERED: QUEtiapine FUMARATE 100 MG TABLET (FP) PO SCH (22:00)
[2020-02-14] MEDS: MELATONIN 5 MG TABLETS PO SCH (22:24)
[2020-02-14] MEDS: THIAMINE HCL 100 MG TABLET (FP) PO SCH (22:24)
[2020-02-15] MEDS: hydrOXYzine PAMOATE 25 MG CAPSULE (FP) PO SCH ×2 (06:03→09:20)
[2020-02-15] MEDS ORDERED: methaDONE HCL 10 MG TABLET (FOR DETOX USE ONLY) ONE (08:28)
[2020-02-15] MEDS: PRENATAL VITAMINS W/ FOLIC ACID TABLET (FP) PO SCH (09:20)
[2020-02-15] MEDS: NICOTINE 14 MG/24 HOURS TOPICAL PATCH TD SCH (09:20)
[2020-02-15] MEDS: PANTOPRAZOLE 40 MG TABLET PO SCH (09:21)
[2020-02-15 09:50] VITALS: BP 113/60; PULSE 80; TEMP 97.1
[2020-02-16] MEDS ORDERED: methaDONE HCL 10 MG TABLET (FOR DETOX USE ONLY) PO ONE (10:00)
== END 2020-02-15 10:20 | disposition left against medical advice (07) | DRG 770 ==
LOC: YASAS 11:15 → Y3N 13:56
PROVIDERS: ADMIT Allergy & Immunology; ATTEND Allergy & Immunology
PROC: HZ2ZZZZ Detoxification Services for Substance Abuse Treatment (ICD-10-PCS; principal; 2020-02-12)
DX: F11.23 Opioid dependence with withdrawal (principal); F17.213 Nicotine dependence, cigarettes, with withdrawal; F19.24 Other psychoactive substance dependence with psychoactive substance-induced mood disorder; F32.9 Major depressive disorder, single episode, unspecified; G47.00 Insomnia, unspecified; Z91.19 Patient's noncompliance with other medical treatment and regimen; Z56.0 Unemployment, unspecified
CPT/HCPCS: 36415; 71046-TC-FY; 80053; 85027; 86780; 93005; 93010; C9803; J0735; U0003